=== PATIENT | female | born 1995 | race Hispanic/Latino ===

== ENCOUNTER 2018-02-21 18:47 | Emergency (ER) | payer OTHER, SELFPAY ==
--- OUTSIDE RECORDS SUMMARY | 2018-02-21 18:50 | XMS REPORT | Continuity of Care Document ---
:1995 Author Organization Interface Problems Problem Status Onset Classification Date Comments Source Date Reported BACK PAIN Active 06/11/20 [facility] 16 PRE ADMIT Active 06/28/[address] Resolved 10/31/19 Problem 06/15/2016 [facility] 14 V28.81 - SCRN Active 09/14/19 [facility] AJITH 13 Outpatient Imaging [facility] Encounter for Active Problem 04/05/2017 Brittanie supervision of [place] normal first , unspecified trimester Urinary tract Active Diagnosis 04/05/2017 Brittanie infection Schettler affecting care of mother in second trimester, antepartum 1St trimester Active Diagnosis 04/05/2017 Brittanie screening Schettler Active [facility] RELATED CONDITIONS, UNSP, UNSP Medications Medication Details Route Status Patient Ordering Order Source Instructions Provider Date Triamcinolone 1 Externally Active 0.05 % Schettler 03/30/ Brittanie Acetonide application Externally 2017 [place] to affected Twice a day area Nystatin 1 Externally Active [id number] Sche[place] 03/30/ Brittanie application UNIT/GM 2017 Schett[place] to affected Externally area Twice a day Vitafol-One 1 capsule Orally Active 29-1-200 MG Sche[place] 03/27/ Brittanie Orally Once a 2017 [place] day Vitafol-One 1 capsule Orally Active 29-1-200 MG Sche[place] 03/27/ Brittanie Orally Once a 2016 [place] day Cephalexin 1 capsule Orally Active 500 MG Orally Schett[place] 03/27/ Brittanie three times a 2016 Schettler day (tid) PNV-Total 1 cap, PO, Active Daily, 0 2015 Refill(s) Calcium 1,000 mL, Inactive Chloride Rate: 125 2015 0.0014 MEQ/ML ml/hr, / Potassium Infuse over: Chloride 0.004 8 hr, Route: MEQ/ML / IV, Total Sodium Volume: Chloride 0.103 1,000, Start MEQ/ML / date: Sodium Lactate 06/12/16 0.028 MEQ/ML 0:41:00 CDT, Injectable Duration: 30 Solution day, Stop date: 07/12/16 0:40:00 FINANCIAL SERVICES REPRESENTATIVE Vitafol-One 1 capsule Orally Active 29-1-200 MG Schett[place] Brittanie Orally Once a Schettler day Vitafol-One 1 capsule Orally Active 29-1-200 MG Schett[place] Brittanie Orally Once a Schettler day Allergies, Adverse Reactions, Alerts Substance Category Reaction Severity Reaction Status Date Comments Source type Reported N.K.D.A. Adverse Info Not Adverse Active Britatnie Reaction Available Reaction 7 Sche[place] NKDA Assertion Drug Active allergy [facility] Immunizations Immunization Date Given Site Status Last Updated Comments Source diphtheria/pertus 06/14/2016 Not Given [facility] sis, acel/tetanus adult Results Order Name Results Value Reference Date Interpretation Comments Source Range Clinical Indication: - Z36 Encounter for screening of mother. 04/24 - [facility] complete complete /2016 - Outpatient single single Comparison: None. Imaging gestation gestation [facility] US Read by: Aggie Pearce MD Dictated Date/time: 04/24/17 14:04 Electronically Signed by: Aggei Pearce MD 04/24/17 14:26 FINAL REPORT TECHNIQUE: Obstetrical ultrasound is performed with pratt scale and M-mode imaging. IMPRESSION: Please see the computer-generated obstetrical ultrasound report for this examination. This study was read and the report is in the EMR, under "Ultrasound" GENERAL OBSERVATIONS REGARDING ULTRASOUND: 1. A normal or negative sonogram report should not delay further investigation of a clinically suspicious or abnormal . 2. position or overlap of parts may prevent complete evaluation of the fetus. 3. Congenital and developmental abnormalities are not always sonographically visualized. 4. Repeat sonograms may be necessary depending on the clinical development during . SL: [id number] Vital Signs Vital Sign Value Date Comments Source Weight 136 03/27/2017 Brittanie Schettler Height 63 03/27/2017 Brittanie Schettler Diastolic (mm Hg) 68 03/27/2017 Brittanie Schettler Systolic (mm Hg) 100 03/27/2017 Brittanie Schettler Respitory Rate 18 06/12/2016 [facility] Systolic (mm Hg) 124 06/12/2016 [facility] Diastolic (mm Hg) 72 06/12/2016 [facility] Respitory Rate 18 06/12/2016 [facility] Weight 77.727 06/12/2016 [facility] BMI Calculated 30.35 06/12/2016 [facility] Height 160.02 cm 06/12/2016 [facility] Systolic (mm Hg) 122 06/12/2016 [facility] Diastolic (mm Hg) 72 06/12/2016 [facility] Encounters Location Location Encounter Encounter Reason Attending ADM DC Status Source Details Type Number For Provider Date Date Visit OD [id number] V28.81 BRITTANIE 09/25 Active [facility] - [facility] CALDERÓN /2012 [facility] AJ[facility] Imaging [facility] [id number] [place] 06/12 06/12 Vini Piresuoba /2015 [facility] Procedures Procedure Code Date Perfomer Comments Source Appendix [id number] 08/14/2013 [facility] operation
--- OUTSIDE RECORDS SUMMARY | 2018-02-21 18:50 | XMS REPORT ---
:1995 Author Organization eClinicalWorks Care Team Providers Name Role Phone Florian Daigle Provider Role Unavailable Allergies, Adverse Reactions, Alerts Substance Reaction Event Type N.K.D.A. Info Not Available Non Drug Allergy Problems No Known Problems Medications Medication Code Code Instructions Start End Status Dosage System Date Date Vitafol-One [facility] 51971675242 29-1-200 MG Active 1 capsule Orally Once a day Vitafol-One ND 60586545050 29-1-200 MG Mar 27, Active 1 capsule Orally Once a 2016 day Triamcinolone [facility] [address]-52 0.05 % Mar 30, Active 1 application Acetonide Externally 2017 to affected Twice a day area Results No Known Results Summary Purpose eClinicalWorks Submission
--- OUTSIDE RECORDS SUMMARY | 2018-02-21 18:50 | XMS REPORT ---
:1995 Author Organization eClinicalWorks Care Team Providers Name Role Phone Florian Daigle Provider Role Unavailable Allergies No Known Allergies Problems Problem Type Condition Code Onset Dates Condition Status Problem Encounter for supervision of normal Z34.00 Active first , unspecified trimester Medications Medication Code Code Instructions Start End Status Dosage System Date Date Nystatin NDC 01693-8 [id number] UNIT/GM Mar 30, May 14, Active 1 application 054-15 Externally 2016 2016 to affected Twice a day area Triamcinolone NDC 29669-4 0.05 % Mar 30, Active 1 application Acetonide 136-17 Externally 2017 to affected Twice a day area Results No Known Results Summary Purpose [employer] Submission
--- OUTSIDE RECORDS SUMMARY | 2018-02-21 18:50 | XMS REPORT ---
:1995 Author Organization eClinicalWorks Care Team Providers Name Role Phone Florian Daigle Provider Role Unavailable Allergies, Adverse Reactions, Alerts Substance Reaction Event Type N.K.D.A. Info Not Available Non Drug Allergy Problems Problem Type Condition Code Onset Dates Condition Status Assessment Urinary tract infection affecting O23.42 Active care of mother in second trimester, antepartum Assessment 1St trimester screening Z36 Active Problem Encounter for supervision of normal Z34.00 Active first , unspecified trimester Medications Medication Code System Code Instructions Start Date End Date Status Dosage Vitafol-One [facility] 85872-141 29-1-200 MG Mar 27, Active 1 capsule 0-30 Orally Once a day 2016 Vitafol-One [facility] 63299-133 29-1-200 MG Active 1 capsule 0-30 Orally Once a day Cephalexin [facility] 53793-294 500 MG Orally Mar 27, Apr 03, Active 1 capsule 7-01 three times a day 2016 2016 (tid) Vital Signs Date/Time: Mar 27, 2017 BMI 24.091 Index Weight 136 lbs Height 63 in Blood Pressure Diastolic 68 mm Hg Blood Pressure Systolic 100 mm Hg Results No Known Results Summary Purpose eClinicalWorks Submission
--- OUTSIDE RECORDS SUMMARY | 2018-02-21 18:50 | XMS REPORT ---
:1995 Author Organization eClinicalWorks Care Team Providers Name Role Phone Florian Daigle Provider Role Unavailable Allergies No Known Allergies Problems No Known Problems Medications No Known Medications Results No Known Results Summary Purpose [employer]ClinicalWorks Submission
--- OUTSIDE RECORDS SUMMARY | 2018-02-21 18:50 | XMS REPORT | Summary of Care ---
:1995 Author Organization [facility] Address [address] [place], [place] [address]- Encounter [facility] [place](FIN) [id number] Date(s): 06/11/16 - 06/12/16 [facility] [address] [place] [address]- Discharge Disposition: Home or Self Care Attending Physician: Bell Aquino MD Admitting Physician: Bell Aquino MD Vital Signs Most recent to oldest [Reference Range]: 1 2 Height 160.02 cm (06/12/16 12:41 AM) Blood Pressure [90-140/60-90 mmHg] 124/72 mmHg 122/72 mmHg (06/12/16 7:50 AM) (06/11/16 11:40 PM) Respiratory Rate [14-20 BRMIN] 18 BRMIN 18 BRMIN (06/12/16 7:50 AM) (06/12/16 5:00 AM) Weight 77.727 kg (06/12/16 12:41 AM) Body Mass Index 30.35 m2 (06/12/16 12:41 AM) Problem List Condition Effective Dates Status Health Status Informant (Confirmed) 10/30/13 - 08/06/14 Resolved (Confirmed) 02/14/12 - 11/20/12 Resolved (Confirmed) 09/18/15 Active Allergies, Adverse Reactions, Alerts Substance Reaction Severity Status NKDA Active Medications Lactated Ringers 1,000 mL 1,000 mL, Rate: 125 ml/hr, Infuse over: 8 hr, Route: IV, Total Volume: 1,000, Start date: 06/12/16 0:41:00 CDT, Duration: 30 day, Stop date: 07/12/16 0:40:00 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 Start Date: 06/12/16 Stop Date: 06/12/16 Status: DiscontinuedPNV-Total 1 cap, PO, Daily, 0 Refill(s) Start Date: 06/12/16 Status: Ordered Results No data available for this section Immunizations Not Given Vaccine Date Status Refusal Reason diphtheria/pertussis, acel/tetanus adult 06/14/16 Not Given Patient Refuses Procedures Procedure Date Related Diagnosis Body Site Appendix operation 2013 Social History Social History Type Response Smoking Status Never smoker; Type: Cigarettes; Previous treatment: None; Ready to change: No; Concerns about tobacco use in household: No; Exposure to Tobacco Smoke None; Cigarette Smoking Last 365 Days No; Reg Smoking Cessation Counseling No Assessment and Plan Extracted from: Title: OB Triage H&P L&D * Author: Bell Aquino MD Date: 06/12/16 Impression and Plan Diagnosis Back pain affecting ([id number]-IE O26.899, Working, Medical). condition: Stable. Maternal condition: Stable. 20 yo at 38w2d here for back pain 1. Back pain: Denies pain medication, will admit for overnight obs given social situation and residence being far. Plan to repeat SVE in AM 2. FHTs reassuring 3. GBS unknown, no records with patient 4. Dispo: Admit for obs
--- OUTSIDE RECORDS SUMMARY | 2018-02-21 18:50 | XMS REPORT ---
:1995 Author Organization eClinicalWorks Care Team Providers Name Role Phone Florian Daigle Provider Role Unavailable Allergies, Adverse Reactions, Alerts Substance Reaction Event Type N.K.D.A. Info Not Available Non Drug Allergy Problems No Known Problems Medications Medication Code Code Instructions Start End Status Dosage System Date Date Vitafol-One [facility] 35392413689 29-1-200 MG Mar 27, Active 1 capsule Orally Once a 2016 day Tri[address] [facility] [address]-75 0.05 % Mar 30, Active 1 application Acetonide Externally 2017 to affected Twice a day area Vitafol-One [facility] 61548770915 29-1-200 MG Active 1 capsule Orally Once a day Results No Known Results Summary Purpose eClinicalWorks Submission
--- NOTE | 2018-02-21 19:32 | EDPHYS ---
Physician Documentation [facility] Name: Yasmin Walker Age: 22 yrs Sex: Female : 1995 Arrival Date: 02/21/2018 Time: 18:51 Bed 24 Private MD: None, None ED Physician Yousuf Miller HPI: 02/22 01:03 This 22 yrs old Female presents to ER via Ambulatory with complaints of Lips snw Swelling. 01:03 The patient presents with pain, swelling, ulceration, vesicles. The problem is located snw in the lower lip. Onset: The symptoms/episode began/occurred suddenly, 2 day(s) ago, and became persistent. Duration: The symptoms are continuous, and are steadily getting worse. Associated signs and symptoms: The patient has no apparent associated signs or symptoms. Severity of symptoms: At their worst the symptoms were moderate, severe. The patient has not experienced similar symptoms in the past. The patient has not recently seen a physician. 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 - Social history:: Smoking status: Patient uses tobacco products, smokes one pack cigarettes per day. Patient/guardian denies using alcohol. - Ebola Screening: : Patient negative for fever greater than or equal to 101.5 degrees Fahrenheit, and additional compatible Ebola Virus Disease symptoms Patient denies exposure to infectious person Patient denies travel to an Ebola-affected area in the 21 days before illness onset. ROS: 02/22 01:04 Constitutional: Negative for fever, chills, and weight loss, Eyes: Negative for injury, snw pain, redness, and discharge, Neck: Negative for injury, pain, and swelling, Cardiovascular: Negative for chest pain, palpitations, and edema, Respiratory: Negative for shortness of breath, cough, wheezing, and pleuritic chest pain, Abdomen/GI: Negative for abdominal pain, nausea, vomiting, diarrhea, and constipation, Back: Negative for injury and pain, : Negative for injury, bleeding, discharge, and swelling, MS/Extremity: Negative for injury and deformity, Skin: Negative for injury, rash, and discoloration, Neuro: Negative for headache, weakness, numbness, tingling, and seizure. ENT: Positive for lower lip with swelling and pain. Exam: 01:01 Constitutional: This is a well developed, well nourished patient who is awake, alert, snw and in no acute distress. Head/Face: Normocephalic, atraumatic. Eyes: Pupils equal round and reactive to light, extra-ocular motions intact. Lids and lashes normal. Conjunctiva and sclera are non-icteric and not injected. Cornea within normal limits. Periorbital areas with no swelling, redness, or edema. Neck: Trachea midline, no thyromegaly or masses palpated, and no cervical lymphadenopathy. Supple, full range of motion without nuchal rigidity, or vertebral point tenderness. No Meningismus. Chest/axilla: Normal chest wall appearance and motion. Nontender with no deformity. No lesions are appreciated. Cardiovascular: Regular rate and rhythm with a normal S1 and S2. No gallops, murmurs, or rubs. Normal PMI, no JVD. No pulse deficits. Respiratory: Lungs have equal breath sounds bilaterally, clear to auscultation and percussion. No rales, rhonchi or wheezes noted. No increased work of breathing, no retractions or nasal flaring. Abdomen/GI: Soft, non-tender, with normal bowel sounds. No distension or tympany. No guarding or rebound. No evidence of tenderness throughout. Back: No spinal tenderness. No costovertebral tenderness. Full range of motion. Skin: Warm, dry with normal turgor. Normal color with no rashes, no lesions, and no evidence of cellulitis. MS/ Extremity: Pulses equal, no cyanosis. Neurovascular intact. Full, normal range of motion. Neuro: Awake and alert, GCS 15, oriented to person, place, time, and situation. Cranial nerves II-XII grossly intact. Motor strength 5/5 in all extremities. Sensory grossly intact. Cerebellar exam normal. Normal gait. Psych: Awake, alert, with orientation to person, place and time. Behavior, mood, and affect are within normal limits. 01:01 ENT: TM's: are normal, Nose: is normal, Mouth: Lips: cracked, edematous with vesicles to right aspect of lower lip, Posterior pharynx: is normal, Dental exam: normal, Voice: is normal. Vital Signs: 02/21 18:55 BP 107 / 73; Pulse 103; Resp 18; Temp 97.7(O); Pulse Ox 96% on R/A; Weight 56.7 kg; hj Height 5 ft. 3 in. (160.02 cm); Pain 10/10; 19:59 BP 119 / 82; Pulse 77; Resp 18; Pulse Ox 100% ; tl3 18:55 Body Mass Index 22.14 (56.70 kg, 160.02 cm) hj MDM: 19:11 Patient medically screened. snw 02/22 01:02 Data reviewed: vital signs, nurses notes. Data interpreted: Pulse oximetry: on room air snw is 100 %. Interpretation: normal. Counseling: I had a detailed discussion with the patient and/or guardian regarding: the historical points, exam findings, and any diagnostic results supporting the discharge/admit diagnosis, the presence of at least one elevated blood pressure reading (>120/80) during this emergency department visit, the need for outpatient follow up, to return to the emergency department if symptoms worsen or persist or if there are any questions or concerns that arise at home. Special discussion: Based on the history and exam findings, there is no indication for further emergent testing or inpatient evaluation. I discussed with the patient/guardian the need to see the primary care provider for further evaluation of the symptoms. Administered Medications: 02/21 19:40 Drug: Decadron - Dexamethasone 10 mg {Note: orally administered.} Route: IVP; Site: [facility] Other; 19:58 Follow up: Response: No adverse reaction 3 19:59 Follow up: Response: Medication administered at discharge. 3 19:41 Drug: Acyclovir 800 mg Route: PO; 3 19:58 Follow up: Response: No adverse reaction; Medication administered at discharge. 3 19:41 Drug: Lortab Liquid 10 ml Route: PO; 3 19:58 Follow up: Response: No adverse reaction tl3 19:58 Follow up: Response: Medication administered at discharge. 3 Disposition: 02/21/18 19:31 Discharged to Home. 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 - Condition is Stable. - Discharge Instructions: Herpes Labialis, Cryotherapy. - Prescriptions for Valtrex 1 g Oral Tablet - take 2 tablet by ORAL route every 12 hours for 1 day; 4 tablet. Diclofenac Sodium 75 mg Oral Tablet Sustained Release - take 1 tablet by ORAL route 2 times per day; 30 tablet. - Medication Reconciliation Form, Thank You Letter, Antibiotic Education, Prescription Opioid Use form. - Follow up: Private Physician; When: 2 - 3 days; Reason: Recheck today's complaints, Continuance of care, Re-evaluation by your physician. Follow up: Emergency Department; When: As needed; Reason: Worsening of condition. Addendum: 02/23/2018 20:52 Co-signature as Attending Physician, Yousuf Miller MD. r n Signatures: Katie Tovar, CONDITIONING COACH-C CONDITIONING COACH-Csnw Yousuf Miller MD MD rn Joaquin, Henry RN Malu Day RN RN tl3 Corrections: (The following items were deleted from the chart) 02/21 20:01 19:31 02/21/2018 19:31 Discharged to Home. Impression: Herpesviral [herpes simplex] tl3 infections. Condition is Stable. Forms are Medication Reconciliation Form, Thank You Letter, Antibiotic Education, Prescription Opioid Use. Follow up: Private Physician; When: 2 - 3 days; Reason: Recheck today's complaints, Continuance of care, Re-evaluation by your physician. Follow up: Emergency Department; When: As needed; Reason: Worsening of condition. snw
--- NOTE | 2018-02-21 19:32 | ER ---
Nurse's Notes [facility] Name: Yasmin Walker Age: 22 yrs Sex: Female : 1995 Arrival Date: 02/21/2018 Time: 18:51 Bed 24 Private MD: None, None Diagnosis: Herpesviral [herpes simplex] infections Presentation: 02/21 18:52 Presenting complaint: Patient states: i woke up yesterday with swollen lip and blisters hj on my lower lip and it aches on my bone; denies fever and chills;. Transition of care: patient was not received from another setting of care. Onset of symptoms was February 21, 2018. Risk Assessment: Do you want to hurt yourself or someone else? Patient reports no desire to harm self or others. Initial Sepsis Screen: Does the patient meet any 2 criteria? No. Patient's initial sepsis screen is negative. Does the patient have a suspected source of infection? No. Patient's initial sepsis screen is negative. Care prior to arrival: None. 18:52 Method Of Arrival: Ambulatory 18:52 Acuity: RICO 4 hj Triage Assessment: 18:54 General: Appears in no apparent distress. uncomfortable, Behavior is calm, cooperative, hj appropriate for age. Pain: Complains of pain in lower lip. 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 - Social history:: Smoking status: Patient uses tobacco products, smokes one pack cigarettes per day. Patient/guardian denies using alcohol. - Ebola Screening: : Patient negative for fever greater than or equal to 101.5 degrees Fahrenheit, and additional compatible Ebola Virus Disease symptoms Patient denies exposure to infectious person Patient denies travel to an Ebola-affected area in the 21 days before illness onset. Screenin:54 Abuse screen: Denies threats or abuse. Denies injuries from another. Nutritional hj screening: No deficits noted. Tuberculosis screening: No symptoms or risk factors identified. Fall Risk None identified. Assessment: 19:41 General: Appears uncomfortable, slender, well groomed, well developed, well nourished, tl3 Behavior is calm, cooperative, appropriate for age. Pain: Complains of pain in lower lip. Neuro: No deficits noted. Level of Consciousness is awake, alert, obeys commands, Oriented to person, place, time, situation, Appropriate for age. Cardiovascular: Patient's skin is warm and dry. Respiratory: Airway is patent Respiratory effort is even, unlabored, labored, Respiratory pattern is regular, symmetrical. GI: No deficits noted. No signs and/or symptoms were reported involving the gastrointestinal system. : No signs and/or symptoms were reported regarding the genitourinary system. EENT: Lesions noted. bottom lip. Derm: No signs and/or symptoms reported regarding the dermatologic system. Musculoskeletal: No signs and/or symptoms reported regarding the musculoskeletal system. Vital Signs: 18:55 BP 107 / 73; Pulse 103; Resp 18; Temp 97.7(O); Pulse Ox 96% on R/A; Weight 56.7 kg; hj Height 5 ft. 3 in. (160.02 cm); Pain 10/10; 19:59 BP 119 / 82; Pulse 77; Resp 18; Pulse Ox 100% ; tl3 18:55 Body Mass Index 22.14 (56.70 kg, 160.02 cm) ED Course: 18:51 Patient arrived in ED. mr 18:51 None, None is Private Physician. mr 18:53 Triage completed. hj 18:54 Arm band placed on right wrist. hj 18:54 Patient has correct armband on for positive identification. Bed in low position. Call light in reach. Side rails up X 1. Adult w/ patient. 19:09 Katie Tovar FNP-C [facility]. snw 19:09 Yousuf Miller MD is Attending Physician. snw 19:30 Malu Shaw, TYRESE is Primary Nurse. tl3 19:41 No provider procedures requiring assistance completed. Patient did not have IV access tl3 during this emergency room visit. Administered Medications: 19:40 Drug: Decadron - Dexamethasone 10 mg {Note: orally administered.} Route: IVP; Site: tl3 Other; 19:58 Follow up: Response: No adverse reaction tl3 19:59 Follow up: Response: Medication administered at discharge. tl3 19:41 Drug: Acyclovir 800 mg Route: PO; tl3 19:58 Follow up: Response: No adverse reaction; Medication administered at discharge. tl3 19:41 Drug: Lortab Liquid 10 ml Route: PO; tl3 19:58 Follow up: Response: No adverse reaction tl3 19:58 Follow up: Response: Medication administered at discharge. tl3 Outcome: 19:31 Discharge ordered by MD. durán 19:59 Discharged to home ambulatory. tl3 19:59 Condition: good 19:59 Discharge instructions given to patient, Instructed on discharge instructions, follow up and referral plans. medication usage, Demonstrated understanding of instructions, follow-up care, medications, Prescriptions given X 2. 20:01 Patient left the ED. tl3 Signatures: Katie Tovar, SPRING INSPECTOR-C SPRING INSPECTOR-Neyda Jane Henry, RN RN Malu Rosenberg RN RN tl3
[2018-02-21] MEDS ORDERED: ACYCLOVIR 400 MG TABLET ONE (19:37)
[2018-02-21] MEDS ORDERED: DEXAMETHASONE 10 MG/ML VIAL ONE (19:37)
[2018-02-21] MEDS ORDERED: HYDROCOD 2.5mg-ACETAMIN 108mg/5mL Soln ONE (19:38)
[2018-02-21 20:10] VITALS: TEMP 97.7
[2018-02-21 20:11] VITALS: BP 119/82; O2SAT 100
== END 2018-02-21 20:01 | disposition home or self-care (01) ==
LOC: ER 18:47
DX: B00.1 Herpesviral vesicular dermatitis (principal); F17.210 Nicotine dependence, cigarettes, uncomplicated
CPT/HCPCS: 96374; 99283; J1100

== ENCOUNTER 2018-03-21 14:09 | Emergency (ER) | payer SELFPAY ==
--- OUTSIDE RECORDS SUMMARY | 2018-03-21 14:11 | XMS REPORT | Continuity of Care Document ---
:1995 Author Organization Interface Problems Problem Status Onset Classification Date Comments Source Date Reported BACK PAIN Active 06/11/20 [facility] 16 PRE ADMIT Active 06/28/[address] Resolved 10/31/19 Problem 06/15/2016 [facility] 14 V28.81 - SCRN Active 09/14/19 [facility] AJITH 13 Outpatient Imaging [facility] Encounter for Active Problem 04/05/2017 Brittanie supervision of [place] normal first , unspecified trimester Urinary tract Active Diagnosis 04/05/2017 Brittanie infection Sche[place] affecting care of mother in second trimester, antepartum 1St trimester Active Diagnosis 04/05/2017 Brittanie screening [place] Active [facility] RELATED CONDITIONS, UNSP, UNSP Medications Medication Details Route Status Patient Ordering Order Source Instructions Provider Date Triamcinolone 1 Externally Active 0.05 % [place] 03/30/ Brittanie Acetonide application Externally 2017 [place] to affected Twice a day area Nystatin 1 Externally Active [id number] [place] 03/30/ Brittanie application UNIT/GM 2017 [place] [...] 30 Solution day, Stop date: 07/12/16 0:40:00 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 Adverse Info Not Adverse Active Brittanie Reaction Available Reaction 7 [place] NKDA Assertion Drug Active allergy [facility] Immunizations Immunization Date Given Site Status Last Updated Comments Source diphtheria/pertus 06/14/2016 Not Given [facility] sis, acel/tetanus adult Results Order Name Results Value Reference Date Interpretation Comments Source Range Clinical Indication: - Z36 Encounter for screening of mother. 04/24 - [facility] complete complete /2016 - Outpatient single single Comparison: None. Imaging gestation gestation [facility] [place] Read by: Aggie Pearce MD Dictated Date/time: 04/24/17 14:04 Electronically Signed by: Aggie Pearce MD 04/24/17 14:26 FINAL REPORT TECHNIQUE: [...] on the clinical development during . SL: [id number] Vital Signs Vital Sign Value Date Comments Source Weight 136 03/27/2017 Brittanie [place]ler Height 63 03/27/2017 Brittanie [place] Diastolic (mm Hg) 68 03/27/2017 Brittanie Sche[place] Systolic (mm Hg) 100 03/27/2017 Brittanie Schettler Respitory Rate 18 06/12/2016 [facility] Systolic (mm Hg) 124 06/12/2016 [facility] Diastolic (mm Hg) 72 06/12/2016 [facility] Respitory Rate 18 06/12/2016 [facility] Weight 77.727 06/12/2016 [facility] BMI Calculated 30.35 06/12/2016 [facility] Height 160.02 cm 06/12/2016 [facility] Systolic (mm Hg) 122 06/12/2016 [facility] Diastolic (mm Hg) 72 06/12/2016 [facility] Encounters Location Location Encounter Encounter Reason Attending ADM DC Status Source Details Type Number For Provider Date Date Visit OD [id number] V28.81 BRITTANIE 09/25 Active [facility] - [place] CALDERÓN /2012 [facility] Imaging [facility] with [facility] Observation [id number] [place] 06/12 06/12 Vini Piresuoba /2015 [facility] Procedures Procedure Code Date Perfomer Comments Source Appendix [id number] 08/14/2013 [facility] operation
--- OUTSIDE RECORDS SUMMARY | 2018-03-21 14:11 | XMS REPORT ---
:1995 Author Organization eClinicalWorks Care Team Providers Name Role Phone Florian Daigle Provider Role Unavailable Allergies No Known Allergies Problems Problem Type Condition Code Onset Dates Condition Status Problem Encounter for supervision of normal Z34.00 Active first , unspecified trimester Medications Medication Code Code Instructions Start End Status Dosage System Date Date Nystatin NDC 97680-9 046203 UNIT/GM Mar 30, May 14, Active 1 application 054-15 Externally 2016 2016 to affected Twice a day area Triamcinolone NDC 52849-3 0.05 % Mar 30, Active 1 application Acetonide 136-17 Externally 2017 to affected Twice a day area Results No Known Results Summary Purpose [facility] Submission
--- OUTSIDE RECORDS SUMMARY | 2018-03-21 14:12 | XMS REPORT ---
:1995 Author Organization eClinicalWorks Care Team Providers Name Role Phone Florian Daigle Provider Role Unavailable Allergies, Adverse Reactions, Alerts Substance Reaction Event Type N.K.D.A. Info Not Available Non Drug Allergy Problems No Known Problems Medications Medication Code Code Instructions Start End Status Dosage System Date Date Vitafol-One [facility] 80997476513 29-1-200 MG Active 1 capsule Orally Once a day Vitafol-One ND 82284312961 29-1-200 MG Mar 27, Active 1 capsule Orally Once a 2016 day Triamcinolone [facility] [address]-73 0.05 % Mar 30, Active 1 application Acetonide Externally 2017 to affected Twice a day area Results No Known Results Summary Purpose eClinicalWorks Submission
--- OUTSIDE RECORDS SUMMARY | 2018-03-21 14:12 | XMS REPORT ---
[...] Date End Date Status Dosage Vitafol-One [facility] 97173-797 29-1-200 MG Mar 27, Active 1 capsule 0-30 Orally Once a day 2016 Vitafol-One [facility] 31275-201 29-1-200 MG Active 1 capsule 0-30 Orally Once a day Cephalexin [facility] 46172-061 500 MG Orally Mar 27, Apr 03, Active 1 capsule 7-01 three times a day 2016 2016 (tid) Vital Signs Date/Time: Mar 27, 2017 BMI 24.091 Index Weight 136 lbs Height 63 in Blood Pressure Diastolic 68 mm Hg Blood Pressure Systolic 100 mm Hg Results No Known Results Summary Purpose eClinicalWorks Submission
--- OUTSIDE RECORDS SUMMARY | 2018-03-21 14:12 | XMS REPORT ---
:1995 Author Organization eClinicalWorks Care Team Providers Name Role Phone Florian Daigle Provider Role Unavailable Allergies, Adverse Reactions, Alerts Substance Reaction Event Type N.K.D.A. Info Not Available Non Drug Allergy Problems No Known Problems Medications Medication Code Code Instructions Start End Status Dosage System Date Date Vitafol-One [facility] 82880643464 29-1-200 MG Mar 27, Active 1 capsule Orally Once a 2016 day Triamcinolone [facility] [address]-07 0.05 % Mar 30, Active 1 application Acetonide Externally 2017 to affected Twice a day area Vitafol-One [facility] 07608996579 29-1-200 MG Active 1 capsule Orally Once a day Results No Known Results Summary Purpose eClinicalWorks Submission
[2018-03-21 14:44] LABS: Urine Blood 1+ (NEG); Urine Glucose NEGATIVE (NEG); Urine Protein 2+ (NEG); Urine pH 6.5 (5.0-7.0)
[2018-03-21 15:07] LABS: Urine Bacteria 20-50 /HPF (<20); Urine Culture Reflex Order REFLEXED
--- NOTE | 2018-03-21 15:15 | ER ---
Nurse's Notes [facility] Name: Yasmin Walker Age: 22 yrs Sex: Female : 1995 Arrival Date: 03/21/2018 Time: 14:12 Bed 26 Private MD: None, None Diagnosis: Acute cystitis with hematuria Presentation: 03/21 14:16 Presenting complaint: Patient states: i have this bladder infection about 6 days ago hj and took uri max over the counter meds and its not helping; denies fever and chills; reports L flank pain; reports burning with urination;. Transition of care: patient was not received from another setting of care. Onset of symptoms was March 21, 2018. Risk Assessment: Do you want to hurt yourself or someone else? Patient reports no desire to harm self or others. Initial Sepsis Screen: Does the patient meet any 2 criteria? No. Patient's initial sepsis screen is negative. Does the patient have a suspected source of infection? No. Patient's initial sepsis screen is negative. Care prior to arrival: None. 14:16 Method Of Arrival: Ambulatory 14:16 Acuity: RICO 3 Triage Assessment: 14:20 General: Appears in no apparent distress. uncomfortable, Behavior is calm, cooperative, hj appropriate for age. Pain: Complains of pain in left low back. Musculoskeletal: Circulation, motion, and sensation intact. Capillary refill Range of motion: intact in all extremities. 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 - Social history:: Smoking status: Patient uses tobacco products, denies chronic smoking, but will smoke occasionally, smokes one pack cigarettes per day. Patient/guardian denies using alcohol. - Ebola Screening: : Patient negative for fever greater than or equal to 101.5 degrees Fahrenheit, and additional compatible Ebola Virus Disease symptoms Patient denies exposure to infectious person Patient denies travel to an Ebola-affected area in the 21 days before illness onset. Screenin:20 Abuse screen: Denies threats or abuse. Denies injuries from another. Nutritional hj screening: No deficits noted. Tuberculosis screening: No symptoms or risk factors identified. Fall Risk None identified. Assessment: 14:37 General: Appears in no apparent distress. comfortable, Behavior is calm, cooperative, aj appropriate for age. Neuro: Level of Consciousness is awake, alert, obeys commands, Oriented to person, place, time, situation, Appropriate for age. Respiratory: Airway is patent Respiratory effort is even, unlabored, Respiratory pattern is regular, symmetrical. : Reports burning with urination. Derm: Skin is intact, is healthy with good turgor, Skin is pink, warm \T\ dry. normal. 15:22 Reassessment: Patient appears in no apparent distress at this time. Patient and/or tl3 family updated on plan of care and expected duration. Pain level reassessed. Patient is alert, oriented x 3, equal unlabored respirations, skin warm/dry/pink. Vital Signs: 14:20 BP 110 / 69; Pulse 84; Resp 18; Temp 98.8(TE); Pulse Ox 97% on R/A; Weight 58.97 kg; hj Height 5 ft. 3 in. (160.02 cm); Pain 8/10; 15:22 BP 105 / 67; Pulse 80; Resp 18; Pulse Ox 99% ; tl3 14:20 Body Mass Index 23.03 (58.97 kg, 160.02 cm) hj ED Course: 14:12 Patient arrived in ED. mr 14:12 None, None is Private Physician. mr 14:19 Triage completed. hj 14:20 Arm band placed on right wrist. hj 14:22 [facility] jr8 14:22 Yousuf Miller MD is Attending Physician. jr8 14:22 Patient has correct armband on for positive identification. Placed in gown. Bed in low hj position. Call light in reach. Side rails up X 1. Adult w/ patient. 14:23 Monique Stroud, TYRESE is Primary Nurse. aj 14:37 Urine collected: clean catch specimen, cloudy, Amount Voided: 200mL. aj 15:22 No provider procedures requiring assistance completed. Patient did not have IV access tl3 during this emergency room visit. Administered Medications: No medications were administered Outcome: 15:15 Discharge ordered by . jr8 15:22 Discharged to home ambulatory. tl3 15:22 Condition: good 15:22 Discharge instructions given to patient, Instructed on discharge instructions, follow up and referral plans. medication usage, Demonstrated understanding of instructions, follow-up care, medications, Prescriptions given X 2. 15:24 Patient left the ED. tl3 Addendum: 03/24/2018 08:30 Addendum: Culture Results: Positive urine culture. No further action required. Bacteria h b sensitive to prescribed antibiotic. Signatures: Monique Stroud, RN RN Neyda Serrano Josh, PA PA jr8 Leo Holland RN RN Zoila Angelo RN RN Malu Shaw RN RN tl3
--- NOTE | 2018-03-21 15:16 | EDPHYS ---
Physician Documentation [facility] Name: Yasmin Walker Age: 22 yrs Sex: Female : 1995 Arrival Date: 03/21/2018 Time: 14:12 Bed 26 Private MD: None, None ED Physician Yousuf Miller HPI: 03/21 15:26 This 22 yrs old Female presents to ER via Ambulatory with complaints of Back jr8 Pain, Urinary Problem. 15:26 The patient presents with urinary symptoms, dysuria, urgency. Onset: The jr8 symptoms/episode began/occurred gradually, 1 week(s) ago. Modifying factors: The symptoms are alleviated by nothing, the symptoms are aggravated by urinating. Associated signs and symptoms: Pertinent positives: nausea. Severity of symptoms: At their worst the symptoms were mild, in the emergency department the symptoms are unchanged. The patient has not experienced similar symptoms in the past. The patient has not recently seen a physician. 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 - Social history:: Smoking status: Patient uses tobacco products, denies chronic smoking, but will smoke occasionally, smokes one pack cigarettes per day. Patient/guardian denies using alcohol. - Ebola Screening: : Patient negative for fever greater than or equal to 101.5 degrees Fahrenheit, and additional compatible Ebola Virus Disease symptoms Patient denies exposure to infectious person Patient denies travel to an Ebola-affected area in the 21 days before illness onset. ROS: 15:26 Eyes: Negative for injury, pain, redness, and discharge, ENT: Negative for injury, jr8 pain, and discharge, Neck: Negative for injury, pain, and swelling, Cardiovascular: Negative for chest pain, palpitations, and edema, Respiratory: Negative for shortness of breath, cough, wheezing, and pleuritic chest pain, Abdomen/GI: Negative for abdominal pain, nausea, vomiting, diarrhea, and constipation, MS/Extremity: Negative for injury and deformity, Skin: Negative for injury, rash, and discoloration, Neuro: Negative for headache, weakness, numbness, tingling, and seizure. 15:26 Back: Positive for pain at rest, Negative for decreased range of motion, pain with movement, radiated pain. 15:26 : Positive for urinary symptoms, Negative for small amounts, hematuria, pelvic pain, flank pain, bladder incontinence, foul smelling urine, vaginal bleeding, vaginal discharge, vaginal itching, menstrual abnormality. Exam: 15:26 Eyes: Pupils equal round and reactive to light, extra-ocular motions intact. Lids and jr8 lashes normal. Conjunctiva and sclera are non-icteric and not injected. Cornea within normal limits. Periorbital areas with no swelling, redness, or edema. ENT: Nares patent. No nasal discharge, no septal abnormalities noted. Tympanic membranes are normal and external auditory canals are clear. Oropharynx with no redness, swelling, or masses, exudates, or evidence of obstruction, uvula midline. Mucous membranes moist. Neck: Trachea midline, no thyromegaly or masses palpated, and no cervical lymphadenopathy. Supple, full range of motion without nuchal rigidity, or vertebral point tenderness. No Meningismus. Cardiovascular: Regular rate and rhythm with a normal S1 and S2. No gallops, murmurs, or rubs. Normal PMI, no JVD. No pulse deficits. Respiratory: Lungs have equal breath sounds bilaterally, clear to auscultation and percussion. No rales, rhonchi or wheezes noted. No increased work of breathing, no retractions or nasal flaring. Abdomen/GI: Soft, non-tender, with normal bowel sounds. No distension or tympany. No guarding or rebound. No evidence of tenderness throughout. Back: No spinal tenderness. No costovertebral tenderness. Full range of motion. Skin: Warm, dry with normal turgor. Normal color with no rashes, no lesions, and no evidence of cellulitis. MS/ Extremity: Pulses equal, no cyanosis. Neurovascular intact. Full, normal range of motion. Neuro: Awake and alert, GCS 15, oriented to person, place, time, and situation. Cranial nerves II-XII grossly intact. Motor strength 5/5 in all extremities. Sensory grossly intact. Cerebellar exam normal. Normal gait. Vital Signs: 14:20 BP 110 / 69; Pulse 84; Resp 18; Temp 98.8(TE); Pulse Ox 97% on R/A; Weight 58.97 kg; hj Height 5 ft. 3 in. (160.02 cm); Pain 8/10; 15:22 BP 105 / 67; Pulse 80; Resp 18; Pulse Ox 99% ; tl3 14:20 Body Mass Index 23.03 (58.97 kg, 160.02 cm) hj MDM: 14:39 Patient medically screened. jr8 15:14 Data reviewed: vital signs, nurses notes, lab test result(s), urinalysis, bacteruria, jr8 and as a result, I will discharge patient. Data interpreted: Pulse oximetry: on room air is 97 %. Interpretation: normal. Counseling: I had a detailed discussion with the patient and/or guardian regarding: the historical points, exam findings, and any diagnostic results supporting the discharge/admit diagnosis, lab results, the need for outpatient follow up, a family practitioner, to return to the emergency department if symptoms worsen or persist or if there are any questions or concerns that arise at home. 03/21 14:23 Order name: Urine Microscopic Only; Complete Time: 15:14 [facility] 03/21 14:36 Order name: Urine Dipstick--Ancillary (enter results); Complete Time: 14:52 03/21 14:23 Order name: Urine Test (obtain specimen); Complete Time: 14:36 [facility] 03/21 14:23 Order name: Urine Dipstick-Ancillary (obtain specimen); Complete Time: 14:36 [facility] 03/21 14:37 Order name: Urine --Ancillary (enter results); Complete Time: 14:52 03/21 15:08 Order name: Urine Culture EDMS Administered Medications: No medications were administered Disposition: 16:35 Co-signature as Attending Physician, Yousuf Miller MD. rn Disposition: 03/21/18 15:15 Discharged to Home. Impression: Acute cystitis with hematuria. - Condition is Stable. - Discharge Instructions: Urinary Tract Infection, Adult. - Prescriptions for Zofran 4 mg Oral Tablet - take 1 tablet by ORAL route every 12 hours As needed; 20 tablet. Macrobid 100 mg Oral Capsule - take 1 capsule by ORAL route every 12 hours for 7 days; 14 capsule. - Medication Reconciliation Form, Thank You Letter, Antibiotic Education, Prescription Opioid Use form. - Follow up: Private Physician; When: 2 - 3 days; Reason: Recheck today's complaints, Continuance of care, Re-evaluation by your physician. - Problem is new. - Symptoms have improved. 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 Impression: Acute cystitis with hematuria. tl3 Condition is Stable. Forms are Medication Reconciliation Form, Thank You Letter, Antibiotic Education, Prescription Opioid Use. Follow up: Private Physician; When: 2 - 3 days; Reason: Recheck today's complaints, Continuance of care, Re-evaluation by your physician. Problem is new. Symptoms have improved. jr8
[2018-03-21 15:44] VITALS: TEMP 98.8
[2018-03-21 15:45] VITALS: BP 105/67; O2SAT 99
== END 2018-03-21 15:24 | disposition home or self-care (01) ==
LOC: ER 14:09
DX: N30.01 Acute cystitis with hematuria (principal); F17.210 Nicotine dependence, cigarettes, uncomplicated
CPT/HCPCS: 81003; 81015; 81025; 87077; 87086; 87088; 87186; 99283

== ENCOUNTER 2018-05-23 18:08 | Emergency (ER) | payer SELFPAY ==
--- OUTSIDE RECORDS SUMMARY | 2018-05-23 18:11 | XMS REPORT ---
:1995 Author Organization eClinicalWorks Care Team Providers Name Role Phone Florian Daigle Provider Role Unavailable Allergies No Known Allergies Problems Problem Type Condition Code Onset Dates Condition Status Problem Encounter for supervision of normal Z34.00 Active first , unspecified trimester Medications Medication Code Code Instructions Start End Status Dosage System Date Date Nystatin NDC 38667-3 225441 UNIT/GM Mar 30, May 14, Active 1 application 054-15 Externally 2016 2016 to affected Twice a day area Triamcinolone NDC 25969-7 0.05 % Mar 30, Active 1 application Acetonide 136-17 Externally 2017 to affected Twice a day area Results No Known Results Summary Purpose eClinical[employer]amboo[employer] Submission
--- OUTSIDE RECORDS SUMMARY | 2018-05-23 18:11 | XMS REPORT ---
[...] Start Date End Date Status Dosage Vitafol-One [facility] 42374-964 29-1-200 MG Mar 27, Active 1 capsule 0-30 Orally Once a day 2016 Vitafol-One [facility] 52931-389 29-1-200 MG Active 1 capsule 0-30 Orally Once a day Cephalexin [facility] 19320-782 500 MG Orally Mar 27, Apr 03, Active 1 capsule 7-01 three times a day 2016 2016 (tid) Vital Signs Date/Time: Mar 27, 2017 BMI 24.091 Index Weight 136 lbs Height 63 in Blood Pressure Diastolic 68 mm Hg Blood Pressure Systolic 100 mm Hg Results No Known Results Summary Purpose eClinicalWorks Submission
--- OUTSIDE RECORDS SUMMARY | 2018-05-23 18:11 | XMS REPORT ---
:1995 Author Organization eClinicalWorks Care Team Providers Name Role Phone Florian Daigle Provider Role Unavailable Allergies, Adverse Reactions, Alerts Substance Reaction Event Type N.K.D.A. Info Not Available Non Drug Allergy Problems No Known Problems Medications Medication Code Code Instructions Start End Status Dosage System Date Date Vitafol-One [facility] 99451555369 29-1-200 MG Mar 27, Active 1 capsule Orally Once a [address] [facility] [address]-93 0.05 % Mar 30, Active 1 application Acetonide Externally 2017 to affected Twice a day area Vitafol-One [facility] 87218188800 29-1-200 MG Active 1 capsule Orally Once a day Results No Known Results Summary Purpose eClinicalWorks Submission
--- OUTSIDE RECORDS SUMMARY | 2018-05-23 18:11 | XMS REPORT ---
:1995 Author Organization eClinicalWorks Care Team Providers Name Role Phone Florian Daigle Provider Role Unavailable Allergies, Adverse Reactions, Alerts Substance Reaction Event Type N.K.D.A. Info Not Available Non Drug Allergy Problems No Known Problems Medications Medication Code Code Instructions Start End Status Dosage System Date Date Vitafol-One [facility] 78956611326 29-1-200 MG Active 1 capsule Orally Once a day Vitafol-One ND 27324351539 29-1-200 MG Mar 27, Active 1 capsule Orally Once a 2016 day Triamcinolone [facility] [address]-07 0.05 % Mar 30, Active 1 application Acetonide Externally 2017 to affected Twice a day area Results No Known Results Summary Purpose eClinicalWorks Submission
--- OUTSIDE RECORDS SUMMARY | 2018-05-23 18:11 | XMS REPORT | Continuity of Care Document ---
:1995 Author Organization Interface Problems Problem Status Onset Classification Date Comments Source Date Reported BACK PAIN Active 06/11/20 [facility] 16 PRE ADMIT Active 06/28/[address] Resolved 10/31/19 Problem 06/15/2016 [facility] 14 V28.81 - SCRN Active 09/14/19 [facility] AJITH 13 Outpatient Imaging [facility] Encounter for Active Problem 04/05/2017 Brittanie supervision of [place] normal first , unspecified trimester Urinary tract Active Diagnosis 04/05/2017 Brittanie infection [place] affecting care of mother in second trimester, antepartum 1St trimester Active Diagnosis 04/05/2017 Brittanie screening [place] Active [facility] RELATED CONDITIONS, UNSP, UNSP Medications Medication Details Route Status Patient Ordering Order Source Instructions Provider Date Nystatin 1 Externally Active [id number] [place] 03/30/ Brittanie application UNIT/GM 2016 [place] to affected Externally area Twice a day Triamcinolone 1 Externally Active 0.05 % [facility] 03/30/ Brittanie Acetonide application Externally 2017 [place] to affected Twice a day area Vitafol-One 1 capsule Orally Active 29-1-200 MG [...] 30 Solution day, Stop date: 07/12/16 0:40:00 [employer] Vitafol-One 1 capsule Orally Active 29-1-200 MG [place] Brittanie Orally Once a Schettler day Vitafol-One 1 capsule Orally Active 29-1-200 MG [place] Brittanie Orally Once a [place]tt[place] day Allergies, Adverse Reactions, Alerts Substance Category Reaction Severity Reaction Status Date Comments Source type Reported N.K.D.A. Adverse Info Not Adverse Active Brittanie Reaction Available Reaction 7 [place] Immunizations Immunization Date Given Site Status Last Updated Comments Source diphtheria/pertus 06/14/2016 Not Given [facility] sis, acel/tetanus adult Results Order Name Results Value Reference Date Interpretation Comments Source Range Clinical Indication: - Z36 Encounter for screening of mother. 04/24 - [facility] complete complete /2016 - Outpatient single single Comparison: None. Imaging gestation gestation [facility] US Read by: Aggie Pearce MD Dictated [...] depending on the clinical development during . : [id number] Vital Signs Vital Sign Value Date Comments Source Weight 136 03/27/2017 Brittanie [place] Height 63 03/27/2017 Brittanie [place] Diastolic (mm Hg) 68 03/27/2017 Brittanie [place] Systolic (mm Hg) 100 03/27/2017 Brittanie [place] Respitory Rate 18 06/12/2016 [facility] Systolic (mm Hg) 124 06/12/2016 [facility] Diastolic (mm Hg) 72 06/12/2016 [facility] Respitory Rate 18 06/12/2016 [facility] Weight 77.727 06/12/2016 [facility] BMI Calculated 30.35 06/12/2016 [facility] Height 160.02 cm 06/12/2016 [facility] Systolic (mm Hg) 122 06/12/2016 [facility] Diastolic (mm Hg) 72 06/12/2016 [facility] Encounters Location Location Encounter Encounter Reason Attending ADM DC Status Source Details Type Number For Provider Date Date Visit OD [id number] V28.81 BRITTANIE 09/25 Active [facility] [place] [facility] /2012 Outpatie nt AJITH Imaging [facility] Observation [id number] Esohe 06/12 06/12 Vini Aquino /2015 [facility] Procedures Procedure Code Date Perfomer Comments Source Appendix [id number] 08/14/2013 [facility] operation
[2018-05-23 19:10] LABS: Absolute Lymphocytes (CBC) 1.9 K/uL (0.7-4.9); Absolute Monocytes 0.4 K/uL (0.1-1.3); Absolute Neutrophil 4.3 K/uL (1.8-8.0); Basophils % 0.6 % (0-1.3); Eosinophils % 1.6 % (0-4.4); Hematocrit 39.1 % (36.0-45.0); Lymphocytes % 28.2 % (15.3-44.8); MCH 31.2 pg (27.0-35.0); MCV 89.9 fL (80-100); MPV 7.8 fL (7.6-11.3); Monocytes % 6.3 % (3.3-12.3); RBC Red Blood Cell Count 4.35 M/uL (3.86-4.86)
[2018-05-23 19:18] LABS: BUN Blood Urea Nitrogen 10 mg/dL (7-18); Bicarbonate 24 mmol/L (21-32); Glucose Level 91 mg/dL (74-106); Potassium 3.8 mmol/L (3.5-5.1); Sodium Level 141 mmol/L (136-145)
[2018-05-23 19:23] LABS: Urine Blood 2+ (NEG); Urine Glucose NEGATIVE (NEG); Urine Protein NEGATIVE (NEG); Urine Specific Gravity 1.025 (1.005-1.030); Urine pH 6.5 (5.0-7.0)
--- NOTE | 2018-05-23 19:47 | RAD REPORT ---
EXAM DESCRIPTION: US - Transvaginal OB - 05/23/2018 7:39 pm CLINICAL HISTORY: ABD CRAMPING, COMPARISON: OBSTETRICAL LIMITED dated 03/04/2014OBSTETRICAL LIMITED dated 03/04/2014 FINDINGS: The uterus measures 8.4 x 6.2 x 4.3 cm. The endometrial stripe is thickened, without IUP s een. Mild heterogenous fluid suspected in the lower uterine segment/cervix. The maternal adnexa and ovaries are within normal limits. Normal Doppler blood flow was demonstrated to both ovaries. No significant pelvic ascites. IMPRESSION: Thickened endometrial stripe is seen without evidence of IUP. In the setting of an eleva kimi HCG level, this would constitute of unknown location. Advise serial HCG measurements an d follow-up pelvic sonography in 7-10 days.
--- NOTE | 2018-05-23 21:06 | ER ---
Nurse's Notes [facility] Name: Yasmin Walker Age: 22 yrs Sex: Female : 1995 Arrival Date: 05/23/2018 Time: 18:12 Bed 18 Private MD: Diagnosis: Complete or unspecified spontaneous without complication Presentation: 05/23 18:34 Presenting complaint: Patient states: Positive test 5 weeks ago, today she aj1 woke up with bright red vaginal bleeding. Reports abdominal cramping. Transition of care: patient was not received from another setting of care. Onset of symptoms was May 23, 2018. Risk Assessment: Do you want to hurt yourself or someone else? Patient reports no desire to harm self or others. Initial Sepsis Screen: Does the patient meet any 2 criteria? No. Patient's initial sepsis screen is negative. Does the patient have a suspected source of infection? No. Patient's initial sepsis screen is negative. Care prior to arrival: None. 18:34 Method Of Arrival: Ambulatory aj1 18:34 Acuity: RICO 3 aj1 Triage Assessment: 18:36 General: Appears in no apparent distress. comfortable, Behavior is calm, cooperative, aj1 appropriate for age. Pain: Denies pain. Neuro: Level of Consciousness is awake, alert, obeys commands. Cardiovascular: Patient's skin is warm and dry. Respiratory: Airway is patent Respiratory effort is even, unlabored, Respiratory pattern is regular, symmetrical. : Reports vaginal bleeding that is bright red, with clots. 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 - Social history:: Smoking status: Patient/guardian denies using tobacco. - Ebola Screening: : Patient denies travel to an Ebola-affected area in the 21 days before illness onset. Screenin:39 Abuse screen: Denies threats or abuse. Denies injuries from another. Nutritional sv screening: No deficits noted. Tuberculosis screening: No symptoms or risk factors identified. Fall Risk None identified. Assessment: 18:45 General: Appears in no apparent distress. uncomfortable, well developed, Behavior is sv calm, cooperative, appropriate for age. Pain: Denies pain. Neuro: Level of Consciousness is awake, alert, obeys commands, Oriented to person, place, time, situation, Moves all extremities. Full function. Respiratory: Respiratory effort is even, unlabored, Respiratory pattern is regular, symmetrical. : Reports vaginal bleeding that is bright red, with clots, moderate flow, since yesterday, pt stated that it started off as light pink yesterday and today it has gotten redder. Derm: Skin is pink, warm \T\ dry. 19:13 Reassessment: Patient appears in no apparent distress at this time. No changes from jd3 previously documented assessment. Patient and/or family updated on plan of care and expected duration. Pain level reassessed. Patient is alert, oriented x 3, equal unlabored respirations, skin warm/dry/pink. 19:13 Obstetrical Assessment: General assessment: awake and alert. jd3 20:20 Reassessment: Patient appears in no apparent distress at this time. No changes from jd3 previously documented assessment. Patient and/or family updated on plan of care and expected duration. Pain level reassessed. Patient is alert, oriented x 3, equal unlabored respirations, skin warm/dry/pink. 20:21 Reassessment: Patient appears in no apparent distress at this time. No changes from jd3 previously documented assessment. Patient and/or family updated on plan of care and expected duration. Pain level reassessed. Patient is alert, oriented x 3, equal unlabored respirations, skin warm/dry/pink. 20:59 Reassessment: Patient appears in no apparent distress at this time. No changes from jd3 previously documented assessment. Patient and/or family updated on plan of care and expected duration. Pain level reassessed. Patient is alert, oriented x 3, equal unlabored respirations, skin warm/dry/pink. 21:15 Reassessment: Patient appears in no apparent distress at this time. Patient and/or jd3 family updated on plan of care and expected duration. Pain level reassessed. Patient is alert, oriented x 3, equal unlabored respirations, skin warm/dry/pink. reported understanding of discharge instructions, even and steady gait upon discharge. Vital Signs: 18:36 BP 109 / 65; Pulse 90; Resp 16; Temp 98.6; Pulse Ox 100% on R/A; Weight 58.97 kg (R); aj1 Height 5 ft. 3 in. (160.02 cm); Pain 0/10; 20:20 BP 97 / 64; Pulse 61; Resp 16 S; Pulse Ox 100% on R/A; jd3 20:59 BP 99 / 66; Pulse 63; Resp 16 S; Pulse Ox 100% on R/A; jd3 18:36 Body Mass Index 23.03 (58.97 kg, 160.02 cm) aj1 Vitals: 21:14 Heart Tones none ordered. jd3 ED Course: 18:12 Patient arrived in ED. as 18:35 Katie Tovar FNP-C [facility]. snw 18:35 Rory Finch MD is Attending Physician. snw 18:36 Triage completed. aj1 18:36 Arm band placed on Patient placed in an exam room. aj1 18:39 Marika Evans RN is Primary Nurse. sv 18:39 Patient has correct armband on for positive identification. Bed in low position. Door sv closed. Head of bed elevated. 18:50 Initial lab(s) drawn, by ak, sent to lab. Inserted saline lock: 22 gauge in right sv antecubital area, using aseptic technique. ,using aseptic technique. diffusics Blood collected. Flushed right antecubital with 5 ml normal saline. 18:58 Report given to Jose Luis Jay. sv 19:39 US Transvaginal Ob In Process Unspecified. EDMS 21:13 No provider procedures requiring assistance completed. IV discontinued, intact, jd3 bleeding controlled, No redness/swelling at site. Pressure dressing applied. Administered Medications: No medications were administered Point of Care Testing: Urine : 20:20 hCG Reading: Positive; jd3 Outcome: 21:06 Discharge ordered by . snw 21:13 Discharged to home ambulatory. jd3 21:13 Condition: stable 21:13 Discharge instructions given to patient, Instructed on discharge instructions, follow up and referral plans. medication usage, Demonstrated understanding of instructions, follow-up care, medications, Prescriptions given X 1. 21:16 Patient left the ED. jd3 Signatures: Dispatcher [employer] EDNM Ciera Pearce RN RN aj1 Marika Evans, RN RN sv Katie Tovar, CUSTOMER OPERATIONS SPECIALIST-C CUSTOMER OPERATIONS SPECIALIST-Csnw Yamini Monroe Jonathon, RN RN jd3
--- NOTE | 2018-05-23 21:06 | EDPHYS ---
Physician Documentation [facility] Name: Yasmin Walker Age: 22 yrs Sex: Female : 1995 Arrival Date: 05/23/2018 Time: 18:12 Bed 18 Private MD: ED Physician Rory Finch HPI: 05/23 20:16 This 22 yrs old Female presents to ER via Ambulatory with complaints of snw Vaginal Bleeding, + Preg <12wks. 20:16 The patient presents with miscarriage. Onset: The symptoms/episode began/occurred snw suddenly, today. Modifying factors: The symptoms are alleviated by nothing. Associated signs and symptoms: Pertinent positives: vaginal bleeding, passed fetus, brought to ED with pt. Sent to pathology. Severity of symptoms: At their worst the symptoms were moderate. The patient has experienced a previous episode, last year. The patient has not recently seen a physician. Pt states bleeding resolving. No complaints at this time. 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 - Social history:: Smoking status: Patient/guardian denies using tobacco. - Ebola Screening: : Patient denies travel to an Ebola-affected area in the 21 days before illness onset. ROS: 20:15 Constitutional: Negative for fever, chills, and weight loss, Eyes: Negative for injury, snw pain, redness, and discharge, ENT: Negative for injury, pain, and discharge, Neck: Negative for injury, pain, and swelling, Cardiovascular: Negative for chest pain, palpitations, and edema, Respiratory: Negative for shortness of breath, cough, wheezing, and pleuritic chest pain, Abdomen/GI: Negative for abdominal pain, nausea, vomiting, diarrhea, and constipation, Back: Negative for injury and pain, MS/Extremity: Negative for injury and deformity, Skin: Negative for injury, rash, and discoloration, Neuro: Negative for headache, weakness, numbness, tingling, and seizure, Psych: Negative for depression, anxiety, suicide ideation, homicidal ideation, and hallucinations. 20:15 : Positive for vaginal bleeding, "miscarriage". Exam: 20:15 Constitutional: This is a well developed, well nourished patient who is awake, alert, snw and in no acute distress. Head/Face: Normocephalic, atraumatic. Eyes: Pupils equal round and reactive to light, extra-ocular motions intact. Lids and lashes normal. Conjunctiva and sclera are non-icteric and not injected. Cornea within normal limits. Periorbital areas with no swelling, redness, or edema. ENT: Nares patent. No nasal discharge, no septal abnormalities noted. Tympanic membranes are normal and external auditory canals are clear. Oropharynx with no redness, swelling, or masses, exudates, or evidence of obstruction, uvula midline. Mucous membranes moist. Neck: Trachea midline, no thyromegaly or masses palpated, and no cervical lymphadenopathy. Supple, full range of motion without nuchal rigidity, or vertebral point tenderness. No Meningismus. Chest/axilla: Normal chest wall appearance and motion. Nontender with no deformity. No lesions are appreciated. Cardiovascular: Regular rate and rhythm with a normal S1 and S2. No gallops, murmurs, or rubs. Normal PMI, no JVD. No pulse deficits. Respiratory: Lungs have equal breath sounds bilaterally, clear to auscultation and percussion. No rales, rhonchi or wheezes noted. No increased work of breathing, no retractions or nasal flaring. Abdomen/GI: Soft, non-tender, with normal bowel sounds. No distension or tympany. No guarding or rebound. No evidence of tenderness throughout. Back: No spinal tenderness. No costovertebral tenderness. Full range of motion. Skin: Warm, dry with normal turgor. Normal color with no rashes, no lesions, and no evidence of cellulitis. MS/ Extremity: Pulses equal, no cyanosis. Neurovascular intact. Full, normal range of motion. Neuro: Awake and alert, GCS 15, oriented to person, place, time, and situation. Cranial nerves II-XII grossly intact. Motor strength 5/5 in all extremities. Sensory grossly intact. Cerebellar exam normal. Normal gait. Psych: Awake, alert, with orientation to person, place and time. Behavior, mood, and affect are within normal limits. Vital Signs: 18:36 BP 109 / 65; Pulse 90; Resp 16; Temp 98.6; Pulse Ox 100% on R/A; Weight 58.97 kg (R); aj1 Height 5 ft. 3 in. (160.02 cm); Pain 0/10; 20:20 BP 97 / 64; Pulse 61; Resp 16 S; Pulse Ox 100% on R/A; jd3 20:59 BP 99 / 66; Pulse 63; Resp 16 S; Pulse Ox 100% on R/A; jd3 18:36 Body Mass Index 23.03 (58.97 kg, 160.02 cm) aj1 MDM: 18:53 Patient medically screened. snw 22:16 Data reviewed: vital signs, nurses notes. Data interpreted: Pulse oximetry: on room air snw is 100 %. Interpretation: normal. Counseling: I had a detailed discussion with the patient and/or guardian regarding: the historical points, exam findings, and any diagnostic results supporting the discharge/admit diagnosis, lab results, radiology results, the need for outpatient follow up, to return to the emergency department if symptoms worsen or persist or if there are any questions or concerns that arise at home. Special discussion: Based on the history and exam findings, there is no indication for further emergent testing or inpatient evaluation. I discussed with the patient/guardian the need to see the OB Gyne specialist for further evaluation of the symptoms. I discussed with the patient/guardian the need to see the primary care provider for further evaluation of the symptoms. 05/23 18:50 Order name: Abo/rh Typing; Complete Time: 19:51 sv 05/23 18:50 Order name: Basic Metabolic Panel; Complete Time: 19:20 sv 05/23 18:50 Order name: CBC with Diff; Complete Time: 19:12 sv 05/23 19:12 Order name: US Transvaginal Ob; Complete Time: 19:52 snw 05/23 19:14 Order name: Urine Dipstick--Ancillary (enter results); Complete Time: 19:27 mt 05/23 19:14 Order name: Urine --Ancillary (enter results); Complete Time: 19:27 mt 05/23 18:50 Order name: IV Saline Lock; Complete Time: 19:01 sv 05/23 18:50 Order name: Labs collected and sent; Complete Time: 19:01 sv 05/23 18:50 Order name: NPO; Complete Time: 19:01 sv 05/23 18:50 Order name: Urine Dipstick-Ancillary (obtain specimen); Complete Time: 19:54 sv Administered Medications: No medications were administered Point of Care Testing: Urine : 20:20 hCG Reading: Positive; jd3 Disposition: 05/23/18 21:06 Discharged to Home. Impression: Complete or unspecified spontaneous without complication. - Condition is Stable. - Discharge Instructions: Miscarriage. - Prescriptions for Vitamin 27- 0.8 mg Oral Tablet - take 1 tablet by ORAL route once daily; 60 tablet. - Medication Reconciliation Form, Thank You Letter, Antibiotic Education, Prescription Opioid Use form. - Follow up: Private Physician; When: 2 - 3 days; Reason: Recheck today's complaints, Continuance of care, Re-evaluation by your physician. Follow up: Emergency Department; When: As needed; Reason: Worsening of condition. Addendum: 05/27/2018 00:52 Co-signature as Attending Physician, Rory Finch MD. g s Signatures: Dispatcher [employer] EDMS Ciera Pearce RN RN aj1 Marika Evans RN RN sv Katie Tovar, VOCATIONAL TECHNICAL EDUCATION TEACHER-C VOCATIONAL TECHNICAL EDUCATION TEACHER-Csnw Rory Finch MD MD gs Davies, Jonathon RN RN jd3 Corrections: (The following items were deleted from the chart) 05/23 21:16 21:06 05/23/2018 21:06 Discharged to Home. Impression: Complete or unspecified jd3 spontaneous without complication. Condition is Stable. Forms are Medication Reconciliation Form, Thank You Letter, Antibiotic Education, Prescription Opioid Use. Follow up: Private Physician; When: 2 - 3 days; Reason: Recheck today's complaints, Continuance of care, Re-evaluation by your physician. Follow up: Emergency Department; When: As needed; Reason: Worsening of condition. snw
[2018-05-23 21:20] VITALS: TEMP 98.6; O2SAT 100
[2018-05-23 21:22] VITALS: BP 99/66
== END 2018-05-23 21:16 | disposition home or self-care (01) ==
LOC: ER 18:08
DX: O03.9 Complete or unspecified spontaneous abortion without complication (principal)
CPT/HCPCS: 36415; 76817; 80048; 81003; 81025; 85025; 86900; 86901; 88305; 99284

== ENCOUNTER 2018-11-20 13:02 | Emergency (ER) | payer SELFPAY ==
--- OUTSIDE RECORDS SUMMARY | 2018-11-20 13:09 | XMS REPORT | Continuity of Care Document ---
:1995 Author Organization Interface Problems Problem Status Onset Classification Date Comments Source Date Reported Spontaneous Active 07/17/20 Finding 07/17/[address] [facility] onset of labor 17 [facility] [place] Active 07/17/20 Finding 07/17/[address] [facility] [place] 39 weeks Active 07/17/20 Finding 07/17/[address] [facility] gestation of 17 [facility] [place] GBS , +RV Resolved 07/17/20 Finding 07/17/[address] [facility] culture, 17 [facility] currently [place] Spontaneous Active 07/17/20 Finding 07/17/[address] [facility] vaginal delivery 17 [facility] [place] Group B Active 07/17/20 Finding 07/17/[address] [facility] Streptococcus 17 [facility] - carrier, +RV [place] culture, currently BACK PAIN Active 06/11/20 [facility] 16 PRE ADMIT Active 06/28/[address] Resolved 10/31/19 Problem 06/15/2016 [facility] 14 V28.81 - SCRN Active 09/14/19 [facility] AJITH 13 Outpatient Imaging [facility] Encounter for Active Problem 04/05/2017 Brittanie supervision of [place] normal first , unspecified trimester Urinary tract Active Diagnosis 04/05/2017 Brittanie infection [place] affecting care of mother in second trimester, antepartum 1St trimester Active Diagnosis 04/05/2017 Brittanie screening [place] Urinary tract Resolved Finding 07/17/[address] [facility] infectious [facility] [place] Second trimester Resolved Finding 07/17/[address] [facility] [place] Abdominal pain Resolved Finding 07/17/[address] [facility] [place] Vomiting Resolved Finding 07/17/[address] [facility] [place] Dehydration Resolved Finding 07/17/[address] [facility] [place] Hypokalemia Resolved Finding 07/17/[address] [facility] [place] Active [facility] RELATED CONDITIONS, UNSP, UNSP Medications Medication Details Route Status Patient Ordering Order Source Instructions Provider Date Ibuprofen EVERY EIGHT Active [place] 07/17/ St[facility] HOURS 2017 [facility] - NEEDED PRN [place] For Xzze-Zk-Inow ache DAILY Active St. Vit/Iron 2017 [facility] - Fumarate/Fa [place] Triamcinolone 1 Externally Active 0.05 % [place] 03/30/ Brittanie Acetonide application Externally 2017 [place] to affected Twice a day area Nystatin 1 Externally Active [id number] [place] 03/30/ Brittanie application UNIT/GM 2016 [place] to affected Externally area Twice a day Vitafol-One 1 capsule Orally Active 29-1-200 MG [place] 03/27/ Brittanie Orally Once a 2016 [place] day Vitafol-One 1 capsule Orally Active 29-1-200 MG [place] 03/27/ Brittanie Orally Once a 2016 [place] day Cephalexin 1 capsule Orally Active 500 MG Orally [place] 03/27/ Brittanie three times a 2016 (tid) PNV-Total 1 cap, PO, Active MH Daily, 0 2015 [facility] Refill(s) Calcium 1,000 mL, Inactive Chloride Rate: 125 2015 [place] 0.0014 MEQ/ML ml/hr, / Potassium Infuse over: Chloride 0.004 8 hr, Route: MEQ/ML / IV, Total Sodium Volume: Chloride 0.103 1,000, Start MEQ/ML / date: Sodium Lactate 06/12/16 0.028 MEQ/ML 0:41:00 CDT, Injectable Duration: 30 Solution day, Stop date: 07/12/16 0:40:00 [employer] Amoxicillin/Po Q12H Active [facility] tassium Clav 2013 [facility] [place] Hydrocodone/Ac Q4H PRN For Active [facility] etaminophen Pain 2013 [facility] [place] Vitafol-One 1 capsule Orally Active 29-1-200 MG [place] Brittanie Orally Once a [place] day Vitafol-One 1 capsule Orally Active 29-1-200 MG [place] Brittanie Orally Once a [place] day Allergies, Adverse Reactions, Alerts Substance Category Reaction Severity Reaction Status Date Comments Source type Reported N.K.D.A. Adverse Info Not Adverse Active 10/19/201 Brittanie Reaction Available Reaction 7 [place] Immunizations Immunization Date Given Site Status Last Comments Source Updated diphtheria/pertus 06/14/2016 Not Given [facility] sis, acel/tetanus adult Tdap Vaccine 11/21/2012 completed [facility] [place] Results Order Name Results Value Reference Date Interpretation Comments Source Range Laboratory White Blood 8.4 K/uL 4.3 - 10.9 07/17 [facility] Studies Count /2016 [facility] [place] Laboratory Red Cell 13.4 % 12.1 - 07/17 [facility] Studies Distribution 15.2 [facility] - Width [place] Laboratory Red Blood 3.49 M/uL 3.86 - 07/17 [facility] Studies Count 4.86 [facility] [place] Laboratory Platelet 213 K/uL 152 - 406 07/17 [facility] Studies Count /2016 [facility] [place] Laboratory Mean 7.9 fL 7.6 - 11.3 07/17 [facility] Studies Platelet /2016 [facility] Volume [place] Laboratory Mean 89.5 fL 80 - 100 07/17 [facility] Studies Corpuscular /2016 [facility] Volume [place] Laboratory Mean 34.1 g/dL 32.0 - 07/17 [facility] Studies Corpuscular 36.0 /2016 [facility] Hemoglobin [place] Concent Laboratory Mean 30.5 pg 27.0 - 07/17 [facility] Studies Corpuscular 35.0 /2016 [facility] Hemoglobin [place] Laboratory Hemoglobin 10.6 g/dL 12.0 - 07/17 [facility] Studies 15.0 /2016 [facility] [place] Laboratory Hematocrit 31.2 % 36.0 - 07/17 [facility] Studies 45.0 /2016 [facility] [place] Laboratory Urine Urine 07/16 [facility] Studies Phencyclidin Phencyclid /2016 [facility] - e Screen ine Screen [place] Laboratory Urine Urine 07/16 [facility] Studies Barbiturates Barbiturat /2016 [facility] - Screen es Screen [place] Laboratory Ur Ur 07/16 [facility] Studies Tetrahydroca Tetrahydro [facility] - nnabinol cannabinol [place] (THC) Scrn (THC) Scrn Laboratory Oxycodone Oxycodone 07/[address] [facility] Studies Screen Screen /2016 [facility] [place] Laboratory Opiates Opiates 07/16 [facility] Studies Screen Screen /2016 [facility] [place] Laboratory MDMA MDMA 07/16 [facility] Studies (Ecstasy) (Ecstasy) /2016 [facility] - Screen Screen [place] Laboratory Cocaine Cocaine 07/16 [facility] Studies Screen Screen /2016 [facility] [place] Laboratory Benzodiazepi Benzodiaze 07/16 [facility] Studies uzma Screen pines /2016 [facility] - Screen [place] Laboratory Amphetamines Amphetamin 07/16 [facility] Studies Screen es Screen /2016 [facility] [place] Laboratory Rapid Plasma Rapid 07/16 [facility] Studies Reagin Plasma /2016 [facility] Reagin [place] Laboratory HIV (1&2) HIV (1&2) 07/16 [facility] Studies Antibody Antibody /2016 [facility] - Rapid Rapid [place] Laboratory Urine pH 6.5 07/16 [facility] Studies /2016 [facility] [place] Laboratory Urine WBC Urine WBC 07/16 [facility] Studies /2016 [facility] [place] Laboratory Urine 1.0 mg/dL 07/16 [facility] Studies Urobilinogen /2016 [facility] [place] Laboratory Urine Total Urine 07/16 [facility] Studies Protein Total /2016 [facility] Protein [place] Laboratory Urine Urine 07/16 [facility] Studies Squamous Squamous /2016 [facility] - Epithelial Epithelial [place] Cells Cells Laboratory Urine 1.020 07/16 [facility] Studies Specific /2016 [facility] [place] Laboratory Urine RBC null 07/16 [facility] Studies /2016 [facility] [place] Laboratory Urine Urine 07/16 [facility] Studies Nitrite Nitrite /2016 [facility] [place] Laboratory Urine Urine 07/16 [facility] Studies Leukocyte Leukocyte /2016 [facility] - Esterase Esterase [place] Laboratory Urine Urine 07/16 [facility] Studies Ketones Ketones /2016 [facility] [place] Laboratory Urine Urine 07/16 [facility] Studies Glucose Glucose /2016 [facility] [place] Laboratory Urine Urine 07/16 [facility] Studies Culture Culture /2016 [facility] - Reflexed Reflexed [place] Laboratory Urine Color Urine 07/16 [facility] Studies Color /2016 [facility] [place] Laboratory Urine Blood Urine 07/16 [facility] Studies Blood /2016 [facility] [place] Laboratory Urine Urine 07/[address] [facility] Studies Bilirubin Bilirubin /2016 [facility] [place] Laboratory Urine null 07/16 [facility]. Studies Bacteria /2016 [facility] [place] Laboratory Urine Urine 07/16 [facility]. Studies Appearance Appearance /2016 [facility] [place] Laboratory Urine Urine 07/16 [facility]. Studies Amorphous Amorphous [facility] - Sediment Sediment [place] Laboratory Neutrophils 72.6 % 41.7 - 07/[address] [facility] [address] Studies % 73.7 /2016 [facility] [place] Laboratory Monocytes % 4.6 % 3.3 - 12.3 07/[address] [facility] [address] Studies /2016 [facility] [place] Laboratory Lymphocytes 21.8 % 15.3 - 07/16 [facility]. Studies % 44.8 /2016 [facility] [place] Laboratory Eosinophils 0.6 % 0 - 4.4 07/16 [facility] [address] Studies % /2016 [facility] [place] Laboratory Basophils % 0.4 % 0 - 1.3 07/16 [facility]. Studies [facility] [place] Laboratory Absolute 6.1 K/uL 1.8 - 8.0 07/16 [facility]. Studies Neutrophil /2016 [facility] [place] Laboratory Absolute 0.4 K/uL 0.1 - 1.3 07/16 [facility]. Studies Monocytes [facility] - (CBC) [place] Laboratory Absolute 1.8 K/uL 0.7 - 4.9 07/16 [facility]. Studies Lymphocytes [facility] - (CBC) [place] Laboratory Absolute 0.1 K/uL 0 - 0.5 07/16 [facility]. Studies Eosinophils [facility] - (CBC) [place] Laboratory Absolute 0.0 K/uL 0 - 0.5 07/16 [facility]. Studies Basophils [facility] - (CBC) [place] Laboratory Rapid Plasma Rapid 07/16 [facility] Studies Reagin Titer Plasma /2016 [facility] [place]agin [place] Titer Clinical Indication: - Z36 Encounter for screening of mother. 04/24 - [facility] complete complete /2016 - Outpatient single single Comparison: None. Imaging gestation gestation US [facility] US Read by: Aggie Pearce MD [...] on the clinical development during . SL: [id number] Vital Signs Vital Sign Value Date Comments Source Temperature Oral (F) 97.8 F 07/17/[address] [facility] [place] Heart Rate 68 07/17/[address] [facility] [place] Respitory Rate 18 07/17/[address] [facility] [place] Systolic (mm Hg) 105 07/17/[address] [facility] [place] Diastolic (mm Hg) 60 07/17/[address] [facility] [place] Height 63 07/16/[address] [facility] [place] Weight 140.00 07/16/[address] [facility] [place] Weight 136 03/27/2017 [facility] [place] [facility] 63 [facility]27[facility] Di[facility] (mm Hg) 68 03/27/2017 [facility] [place] Systolic (mm Hg) 100 03/27/2017 Brittanie [place] Respitory Rate 18 06/12/2016 [facility] Systolic (mm Hg) 124 06/12/2016 [facility] Diastolic (mm Hg) 72 06/12/2016 [facility] Respitory Rate 18 06/12/2016 [facility] Weight 77.727 06/12/2016 [facility] BMI Calculated 30.35 06/12/2016 [facility] Height 160.02 cm 06/12/2016 [facility] Systolic (mm Hg) 122 06/12/2016 [facility] Diastolic (mm Hg) 72 06/12/2016 [facility] Encounters Location Location Encounter Encounter Reason Attending ADM DC Status Source Details Type Number For Provider Date Date Visit OD [id number] V28.81 BRITTANIE 09/25 Active [facility] 0 - SCRN [place]HE[place] /2012 Outpatie nt AJ[facility] Imaging [facility] [id number] [place] 06/12 06/12 V[place] 3 [place] /2015 [facility] . Registered [id number] 07/[address] [facility] Referred Selena Garcia rt [facility] St. Discharged [id number] 07/16 07/[address] [facility] Inpatient Selena Garcia rt Procedures Procedure Code Date Perfomer Comments Source [place] Count [id number] 07/16/[address] [facility] [address] Selena Nichole [id number] 07/16/[address] [facility] [address] Selena Nichole Appendix [id number] 08/14/2013 [facility]
--- OUTSIDE RECORDS SUMMARY | 2018-11-20 13:09 | XMS REPORT ---
:1995 Author Organization [employer] Care Team Providers Name Role Phone Florian Daigle Provider Role Unavailable Allergies No Known Allergies Problems Problem Type Condition Code Onset Dates Condition Status Problem Encounter for supervision of normal Z34.00 Active first , unspecified trimester Medications Medication Code Code Instructions Start End Status Dosage System Date Date Nystatin NDC 69354-2 602770 UNIT/GM Mar 30, May 14, Active 1 application 054-15 Externally 2016 2016 to affected Twice a day area Triamcinolone NDC 39705-2 0.05 % Mar 30, Active 1 application Acetonide 136-17 Externally 2017 to affected Twice a day area Results No Known Results Summary Purpose [employer] Submission
--- OUTSIDE RECORDS SUMMARY | 2018-11-20 13:09 | XMS REPORT ---
[...] Start Date End Date Status Dosage Vitafol-One [facility][NOTE 3] 89771-203 29-1-200 MG Mar 27, Active 1 capsule 0-30 Orally Once a day 2016 Vitafol-One [facility][NOTE 3] 28401-394 29-1-200 MG Active 1 capsule 0-30 Orally Once a day Cephalexin [facility][NOTE 3] 19398-916 500 MG Orally Mar 27, Apr 03, Active 1 capsule 7-01 three times a day 2016 2016 (tid) Vital Signs Date/Time: Mar 27, 2017 BMI 24.091 Index Weight 136 lbs Height 63 in Blood Pressure Diastolic 68 mm Hg Blood Pressure Systolic 100 mm Hg Results No Known Results Summary Purpose [employer] Submission
--- OUTSIDE RECORDS SUMMARY | 2018-11-20 13:10 | XMS REPORT ---
:1995 Author Organization [employer] Care Team Providers Name Role Phone Florian Daigle Provider Role Unavailable Allergies, Adverse Reactions, Alerts Substance Reaction Event Type N.K.D.A. Info Not Available Non Drug Allergy Problems No Known Problems Medications Medication Code Code Instructions Start End Status Dosage System Date Date Vitafol-One [facility] 51217700064 29-1-200 MG Mar 27, Active 1 capsule Orally Once a 2016 day Triamcinolone [facility] [address]-50 0.05 % Mar 30, Active 1 application Acetonide Externally 2017 to affected Twice a day area Vitafol-One [facility] 38474093346 29-1-200 MG Active 1 capsule Orally Once a day Results No Known Results Summary Purpose [employer] Submission
--- OUTSIDE RECORDS SUMMARY | 2018-11-20 13:10 | XMS REPORT ---
:1995 Author Organization [employer] Care Team Providers Name Role Phone Florian aDigle Provider Role Unavailable Allergies No Known Allergies Problems No Known Problems Medications No Known Medications Results No Known Results Summary Purpose [employer] Submission
--- OUTSIDE RECORDS SUMMARY | 2018-11-20 13:10 | XMS REPORT ---
:1995 Author Organization [employer] Care Team Providers Name Role Phone Florian Daigle Provider Role Unavailable Allergies, Adverse Reactions, Alerts Substance Reaction Event Type N.K.D.A. Info Not Available Non Drug Allergy Problems No Known Problems Medications Medication Code Code Instructions Start End Status Dosage System Date Date Vitafol-One [facility] 79372806671 29-1-200 MG Active 1 capsule Orally Once a day Vitafol-One ND 03839566022 29-1-200 MG Mar 27, Active 1 capsule Orally Once a 2016 day Triamcinolone [facility] [address]-60 0.05 % Mar 30, Active 1 application Acetonide Externally 2017 to affected Twice a day area Results No Known Results Summary Purpose [employer] Submission
[2018-11-20 14:08] LABS: Urine Blood NEGATIVE (NEG); Urine Glucose NEGATIVE (NEG); Urine Protein NEGATIVE (NEG); Urine Specific Gravity 1.025 (1.005-1.030)
--- NOTE | 2018-11-20 14:27 | ER ---
Nurse's Notes [facility] Name: Yasmin Walker Age: 23 yrs Sex: Female : 1995 Arrival Date: 11/20/2018 Time: 13:25 Bed 11 Private MD: Diagnosis: Vomiting;First trimester of Presentation: 11/20 13:26 Presenting complaint: Patient states: nausea/vomiting/diarrhea that began 1 day ago. Pt aa5 states "I think I have food poisoning because it happened after I ate some pork chops". Transition of care: patient was not received from another setting of care. Onset of symptoms was November 2018. Risk Assessment: Do you want to hurt yourself or someone else? Patient reports no desire to harm self or others. Initial Sepsis Screen: Does the patient meet any 2 criteria? No. Patient's initial sepsis screen is negative. Does the patient have a suspected source of infection? No. Patient's initial sepsis screen is negative. Care prior to arrival: None. 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 - Social history:: Smoking status: Patient uses tobacco products, 2 cigarettes a day . - Ebola Screening: : No symptoms or risks identified at this time. - Family history:: not pertinent. - Hospitalizations: : No recent hospitalization is reported. Screenin:30 Abuse screen: Denies threats or abuse. Denies injuries from another. Nutritional ss screening: No deficits noted. Tuberculosis screening: Never had TB. Fall Risk None identified. Assessment: 13:45 General: Appears in no apparent distress. comfortable, Behavior is calm, cooperative. ss Pain: Denies pain. Neuro: Level of Consciousness is awake, alert, obeys commands, Oriented to person, place, time, situation. Cardiovascular: Capillary refill < 3 seconds is brisk in bilateral. Respiratory: Airway is patent Respiratory effort is even, unlabored, Respiratory pattern is regular, symmetrical. GI: Abdomen is non-distended, Reports diarrhea, nausea, vomiting, since began 1 day ago. EENT: Oral mucosa is moist. Derm: Skin is intact, is healthy with good turgor. Musculoskeletal: Circulation, motion, and sensation intact. Range of motion: intact in all extremities, Swelling absent. 14:32 Reassessment: Patient appears in no apparent distress at this time. Patient and/or ss family updated on plan of care and expected duration. Pain level reassessed. Patient is alert, oriented x 3, equal unlabored respirations, skin warm/dry/pink. Vital Signs: 13:28 BP 102 / 52; Pulse 85; Resp 16 S; Temp 98.3(TE); Pulse Ox 100% on R/A; Weight 61.23 kg aa5 (R); Height 5 ft. 3 in. (160.02 cm) (R); Pain 7/10; 13:28 Body Mass Index 23.91 (61.23 kg, 160.02 cm) aa5 ED Course: 13:25 Patient arrived in ED. as 13:26 Arm band placed on. aa5 13:27 Triage completed. aa5 13:30 Patient has correct armband on for positive identification. Bed in low position. Call ss light in reach. 13:36 Yousuf Miller MD is Attending Physician. rn 13:45 Urine collected: clean catch specimen, clear. ss 14:32 Araesli Waldron RN is Primary Nurse. ss 14:33 No provider procedures requiring assistance completed. Patient did not have IV access ss during this emergency room visit. Administered Medications: 13:53 Not Given (): Zofran 4 mg PO once rn Outcome: 14:26 Discharge ordered by . rn 14:30 Discharged to home ambulatory. ss 14:30 Condition: good 14:30 Discharge instructions given to patient, family, Instructed on discharge instructions, follow up and referral plans. medication usage, Demonstrated understanding of instructions, follow-up care. 14:34 Patient left the ED. ss Signatures: Yamini Monroe as Yousuf Miller MD MD rn Calderon, Audri, RN RN aa Araseli Waldron RN RN ss
--- NOTE | 2018-11-20 14:27 | EDPHYS ---
Physician Documentation [facility] Name: Yasmin Walker Age: 23 yrs Sex: Female : 1995 Arrival Date: 11/20/2018 Time: 13:25 Bed 11 Private MD: ED Physician Yousuf Miller HPI: 11/20 13:58 This 23 yrs old Female presents to ER via Ambulatory with complaints of rn Vomiting/Diarrhea. 13:58 The patient presents to the emergency department with nausea, vomiting, diarrhea. rn 13:58 Onset: The symptoms/episode began/occurred 1 day(s) ago. Possible causes: unknown. rn Associated signs and symptoms: Pertinent positives: nausea, vomiting, Pertinent negatives: vaginal discharge. Severity of symptoms: At their worst the symptoms were mild in the emergency department the symptoms are unchanged. The patient has not experienced similar symptoms in the past. The patient has not recently seen a physician. Reports 2 days of nausea/vomiting/diarrhea, no fever, no vaginal bleeding or discharge. Thinks it is food poisoning from pork chops. . 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 - Social history:: Smoking status: Patient uses tobacco products, 2 cigarettes a day . - Ebola Screening: : No symptoms or risks identified at this time. - Family history:: not pertinent. - Hospitalizations: : No recent hospitalization is reported. ROS: 13:58 Constitutional: Negative for fever, chills, and weight loss, Eyes: Negative for injury, rn pain, redness, and discharge, Cardiovascular: Negative for chest pain, palpitations, and edema, Respiratory: Negative for shortness of breath, cough, wheezing, and pleuritic chest pain, Abdomen/GI: Negative for abdominal pain, constipation, MS/Extremity: Negative for injury and deformity, Skin: Negative for injury, rash, and discoloration, Neuro: Negative for headache, weakness, numbness, tingling, and seizure. Exam: 13:58 Constitutional: This is a well developed, well nourished patient who is awake, alert, rn and in no acute distress. Head/Face: Normocephalic, atraumatic. ENT: MMM Neck: Trachea midline, no thyromegaly or masses palpated, and no cervical lymphadenopathy. Supple, full range of motion without nuchal rigidity, or vertebral point tenderness. No Meningismus. Abdomen/GI: soft, non-tender Skin: Warm, dry with normal turgor. Normal color with no rashes, no lesions, and no evidence of cellulitis. MS/ Extremity: Pulses equal, no cyanosis. Neurovascular intact. Full, normal range of motion. Equal circumference. Neuro: Awake and alert, GCS 15, oriented to person, place, time, and situation. Cranial nerves II-XII grossly intact. Motor strength 5/5 in all extremities. Sensory grossly intact. Cerebellar exam normal. Normal gait. Vital Signs: 13:28 BP 102 / 52; Pulse 85; Resp 16 S; Temp 98.3(TE); Pulse Ox 100% on R/A; Weight 61.23 kg aa5 (R); Height 5 ft. 3 in. (160.02 cm) (R); Pain 7/10; 13:28 Body Mass Index 23.91 (61.23 kg, 160.02 cm) aa5 MDM: 13:36 Patient medically screened. rn 14:25 Differential diagnosis: viral gastroenteritis, gastroenteritis, . Data rn reviewed: vital signs, nurses notes, lab test result(s), urinalysis, UPT: and as a result, I will discharge patient. Counseling: I had a detailed discussion with the patient and/or guardian regarding: the historical points, exam findings, and any diagnostic results supporting the discharge/admit diagnosis, lab results, the need for outpatient follow up, to return to the emergency department if symptoms worsen or persist or if there are any questions or concerns that arise at home. Special discussion: I discussed with the patient/guardian in detail that at this point there is no indication for admission to the hospital. It is understood, however, that if the symptoms persist or worsen the patient needs to return immediately for re-evaluation. Based on the history and exam findings, there is no indication for further emergent testing or inpatient evaluation. I discussed with the patient/guardian the need to see the OB Gyne specialist for further evaluation of the symptoms. 14:25 ED course: Recommend OB f/u and vitamins, as well as no drinking/smoking. rn 11/20 14:01 Order name: Urine --Ancillary (enter results); Complete Time: 14:27 bd 11/20 14:01 Order name: Urine Dipstick--Ancillary (enter results); Complete Time: 14:27 bd 11/20 13:48 Order name: Urine Test (obtain specimen); Complete Time: 13:52 rn 11/20 14:01 Order name: Urine Dipstick-Ancillary (obtain specimen); Complete Time: 14:05 bd Administered Medications: 13:53 Not Given (): Zofran 4 mg PO once rn Disposition: 11/20/18 14:26 Discharged to Home. Impression: Vomiting, First trimester of . - Condition is Stable. - Discharge Instructions: First Trimester of . - Work release form, Medication Reconciliation Form, Thank You Letter, Antibiotic Education, Prescription Opioid Use form. - Follow up: Private Physician; When: As needed; Reason: Recheck today's complaints, Re-evaluation by your physician. - Problem is new. - Symptoms have improved. Signatures: Dispatcher [employer] EDMS Maricruz Hutson Roman, MD MD rn Calderon, Audri RN RN aa5 Araseli Waldron RN RN ss Corrections: (The following items were deleted from the chart) 14:34 14:26 11/20/2018 14:26 Discharged to Home. Impression: Vomiting; First trimester of ss . Condition is Stable. Forms are Medication Reconciliation Form, Thank You Letter, Antibiotic Education, Prescription Opioid Use. Follow up: Private Physician; When: As needed; Reason: Recheck today's complaints, Re-evaluation by your physician. Problem is new. Symptoms have improved. rn
[2018-11-20 14:50] VITALS: BP 102/52; TEMP 98.3; O2SAT 100
== END 2018-11-20 14:34 | disposition home or self-care (01) ==
LOC: ER 13:02
DX: O21.9 Vomiting of pregnancy, unspecified (principal); O99.331 Smoking (tobacco) complicating pregnancy, first trimester
CPT/HCPCS: 81003; 81025; 99283

== ENCOUNTER 2018-12-30 00:02 | Emergency (ER) | payer OTHER ==
--- OUTSIDE RECORDS SUMMARY | 2018-12-30 00:05 | XMS REPORT | Continuity of Care Document ---
[...] [place] culture, currently BACK PAIN Active 06/11/20 [facility] 16 PRE ADMIT Active 06/28/[address] Resolved 10/31/19 Problem 06/15/2016 [facility] 14 V28.81 - SCRN Active 09/14/19 [facility] AJITH 13 Outpatient Imaging [facility] Encounter for Active Problem 04/05/2017 [...] 07/17/[address] [facility] [place] Active [facility] RELATED CONDITIONS, UNSP, UNSP Medications Medication Details Route Status Patient Ordering Order Source Instructions Provider Date Ibuprofen EVERY EIGHT Active [place] 07/17/ St[facility] HOURS 2017 [facility] - NEEDED PRN [place] For Xpct-Iv-Lpug ache DAILY Active St. Vit/Iron 2017 [facility] - Fumarate/Fa [place] Triamcinolone 1 Externally Active 0.05 % [facility] 03/30/ Brittanie Acetonide application Externally 2017 [facility] to affected Twice a day area Nystatin 1 Externally Active [id number] [facility] 03/30/ Brittanie application UNIT/GM 2016 [place] [...] cap, PO, Active MH Daily, 0 2015 [facility] Refill(s) Calcium 1,000 mL, Inactive Chloride Rate: 125 2015 [place] 0.0014 MEQ/ML ml/hr, / Potassium Infuse over: Chloride 0.004 8 hr, Route: MEQ/ML / IV, Total Sodium Volume: Chloride 0.103 1,000, Start MEQ/ML / date: Sodium Lactate 06/12/16 0.028 MEQ/ML 0:41:00 CDT, Injectable Duration: 30 Solution day, Stop date: 07/12/16 0:40:00 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 tassium Clav [...] Comments Source Updated diphtheria/pertus 06/14/2016 Not Given [facility] sis, acel/tetanus adult Tdap Vaccine 11/21/2012 completed [facility] [place] Results Order Name Results Value Reference Date Interpretation Comments Source Range Laboratory White Blood 8.4 K/uL 4.3 - 10.9 07/17 [facility] Studies Count /2016 [facility] [place] Laboratory Red Cell 13.4 % 12.1 - 07/17 [facility] Studies Distribution 15.2 [facility] Width [place] Laboratory Red Blood 3.49 M/uL 3.86 - 07/17 [facility] Studies Count 4.86 [facility] [place] Laboratory Platelet 213 K/uL 152 - 406 07/17 [facility] Studies Count /2016 [facility] [place] Laboratory Mean 7.9 fL 7.6 - 11.3 07/17 [facility] Studies Platelet /2016 [facility] Volume [place] Laboratory Mean 89.5 fL 80 - 100 07/17 [facility] Studies Corpuscular /2016 [facility] Volume [place] Laboratory Mean 34.1 g/dL 32.0 - 07/17 [facility] Studies Corpuscular 36.0 /2016 [facility] Hemoglobin [place] Concent Laboratory Mean 30.5 pg 27.0 - 07/17 [facility] Studies Corpuscular 35.0 /2016 [facility] Hemoglobin [place] Laboratory Hemoglobin 10.6 g/dL 12.0 - 07/17 [facility] Studies 15.0 /2016 [facility] [place] Laboratory Hematocrit 31.2 % 36.0 - 07/17 [facility] Studies 45.0 /2016 [facility] [place] [facility] Urine Urine 07/16 [facility] Studies Phencyclidin Phencyclid /2016 [facility] - e Screen ine Screen [place] Laboratory Urine Urine 07/16 [facility] Studies Barbiturates Barbiturat /2016 [facility] - Screen es Screen [place] Laboratory Ur Ur 07/16 [facility] Studies Tetrahydroca Tetrahydro [facility] nnabinol cannabinol [place] (THC) Scrn (THC) Scrn Laboratory Oxycodone Oxycodone 07/[address] [facility] [address] Studies Screen Screen /2016 [facility] [place] [facility] Opiates Opiates 07/16 [facility] Studies Screen Screen /2016 [facility] [place] [facility] MDMA MDMA 07/16 [facility] Studies (Ecstasy) (Ecstasy) /2016 [facility] - Screen Screen [place] Laboratory Cocaine Cocaine 07/16 [facility] Studies Screen Screen /2016 [facility] [place] [facility] Benzodiazepi Benzodiaze 07/16 [facility] Studies uzma Screen pines /2016 [facility] Screen [place] Laboratory Amphetamines Amphetamin 07/16 [facility] Studies Screen es Screen /2016 [facility] [place] Laboratory Rapid Plasma Rapid 07/16 [facility] Studies Reagin Plasma /2016 [facility] Reagin [place] Laboratory HIV (1&2) HIV (1&2) 07/16 [facility] Studies Antibody Antibody /2016 [facility] Rapid Rapid [place] Laboratory Urine pH 6.5 07/16 [facility] Studies /2016 [facility] [place] Laboratory Urine WBC Urine WBC 07/16 [facility] Studies /2016 [facility] [place] Laboratory Urine 1.0 mg/dL 07/16 [facility] Studies Urobilinogen /2016 [facility] [place] [facility] Urine Total Urine 07/16 [facility] Studies Protein Total /2016 [facility] Protein [place] Laboratory Urine Urine 07/16 [facility] Studies Squamous Squamous /2016 [facility] Epithelial Epithelial [place] Cells Cells Laboratory Urine 1.020 07/16 [facility] Studies Specific /2016 [facility] [place] Laboratory Urine RBC null 07/16 [facility] Studies /2016 [facility] [place] [facility] Urine Urine 07/16 [facility] Studies Nitrite Nitrite /2016 [facility] [place] [facility] Urine Urine 07/16 [facility] Studies Leukocyte Leukocyte /2016 [facility] Esterase Esterase [place] Laboratory Urine Urine 07/16 [facility] Studies Ketones Ketones /2016 [facility] [place] Laboratory Urine Urine 07/16 [facility] Studies Glucose Glucose /2016 [facility] [place] [facility] Urine Urine 07/16 [facility] Studies Culture Culture /2016 [facility] Reflexed Reflexed [place] Laboratory Urine Color Urine 07/16 [facility] Studies Color /2016 [facility] [place] [facility] Urine Blood Urine 07/16 [facility] Studies Blood /2016 [facility] [place] [facility] Urine Urine 07/[address] Studies Bilirubin Bilirubin /2016 [facility] [place] [facility] Urine null 07/16 [facility]. Studies Bacteria /2016 [facility] [place] [facility] Urine Urine 07/16 [facility]. Studies Appearance Appearance /2016 [facility] [place] Laboratory Urine Urine 07/16 [facility]. Studies Amorphous Amorphous [facility] - Sediment Sediment [place] Laboratory Neutrophils 72.6 % 41.7 - 07/[address] [facility] [address] Studies % 73.7 /2016 [facility] [place] Laboratory Monocytes % 4.6 % 3.3 - 12.3 07/[address] [facility] [address] Studies /2016 [facility] [place] [facility] Lymphocytes 21.8 % 15.3 - 07/16 [facility]. Studies % 44.8 /2016 [facility] [place] [facility] Eosinophils 0.6 % 0 - 4.4 07/[address] [facility] [address] Studies % /2016 [facility] [place] [facility] Basophils % 0.4 % 0 - 1.3 07/16 [facility]. Studies [facility] [place] [facility] Absolute 6.1 K/uL 1.8 - 8.0 07/16 [facility]. Studies Neutrophil /2016 [facility] [place] [facility] Absolute 0.4 K/uL 0.1 - 1.3 07/16 [facility]. Studies Monocytes [facility] - (CBC) [place] Laboratory Absolute 1.8 K/uL 0.7 - 4.9 07/16 [facility]. Studies Lymphocytes [facility] - (CBC) [place] Laboratory Absolute 0.1 K/uL 0 - 0.5 07/16 [facility]. Studies Eosinophils [facility] - (CBC) [place] Laboratory Absolute 0.0 K/uL 0 - 0.5 07/16 [facility]. Studies Basophils [facility] - (CBC) [place] Laboratory Rapid Plasma Rapid 07/16 [facility] Studies Reagin Titer Plasma /2016 [facility] Reagin [place] Titer Clinical Indication: - Z36 Encounter for screening of mother. 04/24 - [facility] complete complete /2016 - Outpatient single single Comparison: None. Imaging gestation gestation US [facility] US Read by: Aggie Pearce [...] on the clinical development during . SL: [id number] Vital Signs Vital Sign Value Date Comments Source Temperature Oral (F) 97.8 F 07/17/[address] [facility] [place] Heart Rate 68 07/17/[address] [facility] [place] Respitory Rate 18 07/17/[address] [facility] [place] Systolic (mm Hg) 105 07/17/[address] [facility] [place] Diastolic (mm Hg) 60 07/17/[address] [facility] [place] Height 63 07/16/[address] [facility] [place] Weight 140.00 07/16/[address] [facility] [place] Weight 136 03/27/2017 [facility] Height 63 03/27/2017 [facility] Diastolic (mm Hg) 68 03/27/2017 [facility] Systolic (mm Hg) 100 03/27/2017 Brittanie [place] Respitory Rate 18 06/12/2016 [facility] Systolic (mm Hg) 124 06/12/2016 [facility] Diastolic (mm Hg) 72 06/12/2016 [facility] Respitory Rate 18 06/12/2016 [facility] Weight 77.727 06/12/2016 [facility] BMI Calculated 30.35 06/12/2016 [facility] Height 160.02 cm 06/12/2016 [facility] Systolic (mm Hg) 122 06/12/2016 [facility] Diastolic (mm Hg) 72 06/12/2016 [facility] Encounters Location Location Encounter Encounter Reason Attending ADM DC Status Source Details Type Number For Provider Date Date Visit OD [id number] V28.81 BRITTANIE 09/25 Active [facility] 0 - SCRN SCHETT /2012 Outpatie nt AJITH Imaging [facility] Observation [id number] [place] 06/12 06/12 V[place] 3 [place] /2015 [facility] . Registered [id number] 07/[address] [facility] [address] [facility] Referred Selena Garcia rt [facility] St. Discharged [id number] 07/16 07/[address] [facility] [address] [facility] Inpatient Selena Garcia rt Procedures Procedure Code Date Perfomer Comments Source [place] Count [id number] 07/16/[address] [facility] [address] Selena Nichole [id number] 07/16/[address] [facility] [address] Selena Nichole Appendix [id number] 08/14/2013 [facility]
--- OUTSIDE RECORDS SUMMARY | 2018-12-30 00:06 | XMS REPORT ---
:1995 Author Organization [employer] Care Team Providers Name Role Phone Florian Daigle Provider Role Unavailable Allergies No Known Allergies Problems Problem Type Condition Code Onset Dates Condition Status Problem Encounter for supervision of normal Z34.00 Active first , unspecified trimester Medications Medication Code Code Instructions Start End Status Dosage System Date Date Nystatin NDC 01948-4 [id number] UNIT/GM Mar 30, May 14, Active 1 application 054-15 Externally 2016 2016 to affected Twice a day area Triamcinolone NDC 99093-1 0.05 % Mar 30, Active 1 application Acetonide 136-17 Externally 2017 to affected Twice a day area Results No Known Results Summary Purpose [email or web address] Submission
--- OUTSIDE RECORDS SUMMARY | 2018-12-30 00:06 | XMS REPORT ---
:1995 Author Organization [employer] Care Team Providers Name Role Phone Florian Daigle Provider Role Unavailable Allergies, Adverse Reactions, Alerts Substance Reaction Event Type N.K.D.A. Info Not Available Non Drug Allergy Problems No Known Problems Medications Medication Code Code Instructions Start End Status Dosage System Date Date Vitafol-One [facility] 70304742368 29-1-200 MG Active 1 capsule Orally Once a day Vitafol-One ND 64300978409 29-1-200 MG Mar 27, Active 1 capsule Orally Once a 2016 day Triamcinolone [facility] [address]-19 0.05 % Mar 30, Active 1 application Acetonide Externally 2017 to affected Twice a day area Results No Known Results Summary Purpose [employer] Submission
--- OUTSIDE RECORDS SUMMARY | 2018-12-30 00:06 | XMS REPORT ---
[...] Start Date End Date Status Dosage Vitafol-One [facility] 82216-275 29-1-200 MG Mar 27, Active 1 capsule 0-30 Orally Once a day 2016 Vitafol-One [facility] [place] 78828-142 29-1-200 MG Active 1 capsule 0-30 Orally Once a day Cephalexin [facility] [place] [place] 90171-312 500 MG Orally Mar 27, Apr 03, Active 1 capsule 7-01 three times a day 2016 2016 (tid) Vital Signs Date/Time: Mar 27, 2017 BMI 24.091 Index Weight 136 lbs Height 63 in Blood Pressure Diastolic 68 mm Hg Blood Pressure Systolic 100 mm Hg Results No Known Results Summary Purpose [employer] Submission
--- OUTSIDE RECORDS SUMMARY | 2018-12-30 00:06 | XMS REPORT ---
:1995 [facility] Address [address] [place] [address] [address] [place] [address] Care Team Providers Name Role Phone Unavailable Unavailable Unavailable Problems This patient has no known problems. Allergies, Adverse Reactions, Alerts This patient has no known allergies or adverse reactions. Medications This patient has no known medications.
--- OUTSIDE RECORDS SUMMARY | 2018-12-30 00:06 | XMS REPORT ---
:1995 Author Organization [employer] Care Team Providers Name Role Phone Florian Daigle Provider Role Unavailable Allergies, Adverse Reactions, Alerts Substance Reaction Event Type N.K.D.A. Info Not Available Non Drug Allergy Problems No Known Problems Medications Medication Code Code Instructions Start End Status Dosage System Date Date Vitafol-One [facility] 42786882040 29-1-200 MG Mar 27, Active 1 capsule Orally Once a 2016 day Triamcinolone [facility] [address]-56 0.05 % Mar 30, Active 1 application Acetonide Externally 2017 to affected Twice a day area Vitafol-One [facility] 56645354236 29-1-200 MG Active 1 capsule Orally Once a day Results No Known Results Summary Purpose [employer] Submission
[2018-12-30 01:06] LABS: Urine Blood NEGATIVE (NEG); Urine Glucose NEGATIVE (NEG); Urine Protein TRACE (NEG); Urine Specific Gravity 1.025 (1.005-1.030)
--- NOTE | 2018-12-30 01:45 | ER ---
Nurse's Notes [facility] Name: Yasmin Walker Age: 23 yrs Sex: Female : 1995 Arrival Date: 12/30/2018 Time: 00:03 Bed 27 Private MD: Diagnosis: Contusion of right hip Presentation: 12/30 00:17 Presenting complaint: Patient states: I WAS IN [place] ONE DAY AGO. I SLEEP ON THE TOP BANK AND I FELL. I HIT MY RIGHT SIDE OF MY HIP. I AM AND I JUST WANT TO MAKE SURE EVERYTHING IS FINE. PAIN IS FROM THE BACK AND ABDOMEN, 8/10. NO VAGINAL DISCHARGE. DID NOT HIT HEAD. PATIENT IS . Transition of care: patient was not received from another setting of care. Onset of symptoms was December 29, 2018 at 08:00. Risk Assessment: Do you want to hurt yourself or someone else? Patient reports no desire to harm self or others. Initial Sepsis Screen: Does the patient meet any 2 criteria? No. Patient's initial sepsis screen is negative. Does the patient have a suspected source of infection? No. Patient's initial sepsis screen is negative. Care prior to arrival: None. 00:17 Method Of Arrival: Ambulatory rv 00:17 Acuity: RICO 4 rv Triage Assessment: 00:21 General: Appears in no apparent distress. comfortable, Behavior is calm, cooperative. rv Pain: Complains of pain in back and abdomen. EENT: No signs and/or symptoms were reported regarding the EENT system. Neuro: Level of Consciousness is awake, alert, obeys commands, Oriented to person, place, time, situation. Cardiovascular: Capillary refill < 3 seconds. Respiratory: Airway is patent. GI: Abdomen is round Reports lower abdominal pain. : No signs and/or symptoms were reported regarding the genitourinary system. Derm: Skin is intact. Musculoskeletal: Reports pain in back and abdomen. 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 - Social history:: Smoking status: Patient uses tobacco products, 3 STICKS A DAY. - Ebola Screening: : No symptoms or risks identified at this time. Screenin:22 Abuse screen: Denies threats or abuse. Denies injuries from another. Nutritional rv screening: No deficits noted. Tuberculosis screening: No symptoms or risk factors identified. Fall Risk None identified. Vital Signs: 00:19 BP 108 / 69; Pulse 79; Resp 16; Temp 98.5; Pulse Ox 99% ; Weight 61.23 kg; Height 5 ft. rv 3 in. (160.02 cm); 01:00 BP 93 / 53; Pulse 76; Resp 16; Pulse Ox 100% ; rv 01:30 BP 100 / 54; Pulse 70; Resp 15; Temp 98.6; Pulse Ox 100% ; rv 00:19 Body Mass Index 23.91 (61.23 kg, 160.02 cm) rv ED Course: 00:03 Patient arrived in ED. es 00:05 Clay Og MD is Attending Physician. tw4 00:16 Bairon Quispe, TYRESE is Primary Nurse. rv 00:19 Triage completed. rv 00:22 Patient has correct armband on for positive identification. Bed in low position. Call rv light in reach. Side rails up X 1. Adult w/ patient. Pulse ox on. NIBP on. 00:22 Patient placed in an exam room, on a stretcher, on pulse oximetry, Patient notified of rv wait time. 01:48 No provider procedures requiring assistance completed. Patient did not have IV access rv during this emergency room visit. Administered Medications: No medications were administered Outcome: 01:44 Discharge ordered by . tw 01:48 Discharged to home ambulatory. rv 01:48 Condition: good 01:48 Discharge instructions given to patient, Instructed on discharge instructions, follow up and referral plans. Demonstrated understanding of instructions, follow-up care. 01:48 Patient left the ED. rv Signatures: Arin Lizama Terrence, MD MD tw4 Bairon Quispe, RN RN rv
[2018-12-30 08:24] VITALS: O2SAT 100
[2018-12-30 08:25] VITALS: BP 100/54; TEMP 98.6
--- NOTE | 2018-12-31 05:02 | EDPHYS ---
Physician Documentation [facility] Name: Yasmin Walker Age: 23 yrs Sex: Female : 1995 Arrival Date: 12/30/2018 Time: 00:03 Bed 27 Private MD: ED Physician Clay Og HPI: 12/30 23:02 This 23 yrs old Female presents to ER via Ambulatory with complaints of right tw4 hip pain. 23:02 Details of fall: The patient fell from a height, off furniture, approximately 4 feet. tw4 Onset: The symptoms/episode began/occurred yesterday. Associated injuries: The patient sustained right iliac crest and right hip. Severity of symptoms: At their worst the symptoms were mild, in the emergency department the symptoms are unchanged. The patient has not experienced similar symptoms in the past. Pt states that she is however is not having any pelvic pain or vaginal bleesing. 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 - Social history:: Smoking status: Patient uses tobacco products, 3 STICKS A DAY. - Ebola Screening: : No symptoms or risks identified at this time. ROS: 23:02 Constitutional: Negative for fever, chills, and weight loss, Eyes: Negative for injury, tw4 pain, redness, and discharge, Cardiovascular: Negative for chest pain, palpitations, and edema, Respiratory: Negative for shortness of breath, cough, wheezing, and pleuritic chest pain, Abdomen/GI: Negative for abdominal pain, nausea, vomiting, diarrhea, and constipation. 23:02 MS/extremity: Positive for injury or acute deformity, pain, Negative for decreased range of motion, deformity. Exam: 23:02 Constitutional: This is a well developed, well nourished patient who is awake, alert, tw4 and in no acute distress. Head/Face: Normocephalic, atraumatic. Chest/axilla: Normal chest wall appearance and motion. Nontender with no deformity. No lesions are appreciated. Cardiovascular: Regular rate and rhythm with a normal S1 and S2. No gallops, murmurs, or rubs. Normal PMI, no JVD. No pulse deficits. Respiratory: Lungs have equal breath sounds bilaterally, clear to auscultation and percussion. No rales, rhonchi or wheezes noted. No increased work of breathing, no retractions or nasal flaring. Abdomen/GI: Soft, non-tender, with normal bowel sounds. No distension or tympany. No guarding or rebound. No evidence of tenderness throughout. 23:02 Musculoskeletal/extremity: Extremities: grossly normal except: noted in the right iliac crest and right hip: pain, tenderness, There is no evidence of contusion, decreased ROM, deformity, ecchymosis, laceration, pain. Vital Signs: 00:19 BP 108 / 69; Pulse 79; Resp 16; Temp 98.5; Pulse Ox 99% ; Weight 61.23 kg; Height 5 ft. rv 3 in. (160.02 cm); 01:00 BP 93 / 53; Pulse 76; Resp 16; Pulse Ox 100% ; rv 01:30 BP 100 / 54; Pulse 70; Resp 15; Temp 98.6; Pulse Ox 100% ; rv 00:19 Body Mass Index 23.91 (61.23 kg, 160.02 cm) rv MDM: 00:05 Patient medically screened. tw4 23:02 Differential diagnosis: abrasion, closed head injury, contusion, fracture. Data tw4 reviewed: vital signs, nurses notes. Data interpreted: Pulse oximetry: Interpretation: normal. Counseling: I had a detailed discussion with the patient and/or guardian regarding: the historical points, exam findings, and any diagnostic results supporting the discharge/admit diagnosis. Special discussion: Based on the patient's Hx, exam, and Dx evaluation, there is no indication for emergent surgery or inpatient Tx. It is understood by the patient/guardian that if the Sx's persist or worsen they need to return immediately for re-evaluation. I discussed with the patient/guardian in detail that at this point there is no indication for admission to the hospital. It is understood, however, that if the symptoms persist or worsen the patient needs to return immediately for re-evaluation. 12/30 00:36 Order name: Urine Dipstick--Ancillary (enter results) ar5 12/30 00:36 Order name: Urine --Ancillary (enter results) ar5 Administered Medications: No medications were administered Disposition: 12/30/18 01:44 Discharged to Home. Impression: Contusion of right hip. - Condition is Fair. - Discharge Instructions: Contusion, [id number]. - Medication Reconciliation Form, Thank You Letter, Antibiotic Education, Prescription Opioid Use form. - Follow up: Private Physician; When: Upon discharge from the Emergency Department; Reason: If symptoms return, Recheck today's complaints, Continuance of care. - Problem is new. - Symptoms have improved. Signatures: Dispatcher [employer] Clay Powell MD MD tw4 Bairon Quispe RN RN rv Corrections: (The following items were deleted from the chart) 01:48 01:44 12/30/2018 01:44 Discharged to Home. Impression: Contusion of right hip. rv Condition is Fair. Forms are Medication Reconciliation Form, Thank You Letter, Antibiotic Education, Prescription Opioid Use. Follow up: Private Physician; When: Upon discharge from the Emergency Department; Reason: If symptoms return, Recheck today's complaints, Continuance of care. Problem is new. Symptoms have improved. tw4
== END 2018-12-30 01:48 | disposition home or self-care (01) ==
LOC: ER 00:02
DX: S70.01XA Contusion of right hip, initial encounter (principal); O99.330 Smoking (tobacco) complicating pregnancy, unspecified trimester; W06.XXXA Fall from bed, initial encounter; Y93.89 Activity, other specified; Y92.143 Cell of prison as the place of occurrence of the external cause; Z3A.00 Weeks of gestation of pregnancy not specified
CPT/HCPCS: 81003; 81025; 99283

== ENCOUNTER 2019-04-13 21:44 | Emergency (ER) | payer OTHER ==
--- OUTSIDE RECORDS SUMMARY | 2019-04-13 21:46 | XMS REPORT | Continuity of Care Document ---
:1995 Author Organization [employer] Care Team Providers Name Role Phone [employer] Unavailable Unavailable Problems Problem Status Onset Classification Date Comments Source Date Reported Spontaneous Active 07/17/20 Finding 07/17/[address] [facility] onset of [facility] [place] (spontaneous Active 07/17/20 Finding 07/17/[address] [facility] vaginal [facility] delivery) [place] 39 weeks Active 07/17/20 Finding 07/17/[address] [facility] gestation of 17 [facility] [place] GBS (group B Resolved 07/17/20 Finding 07/17/[address] [facility] Streptococcus [facility] - carrier), +RV [place] culture, currently Spontaneous Active 07/17/20 Finding 07/17/[address] [facility] vaginal delivery 17 [facility] [place] Group B Active 07/17/20 Finding 07/17/[address] [facility] Streptococcus 17 [facility] - carrier, +RV [place] culture, currently BACK PAIN Active 06/11/20 [facility] 16 PRE ADMIT Active 06/28/[address] Patient Resolved 10/31/19 Problem 06/15/2016 [facility] currently 14 (finding) V28.81 - SCRN Active 09/14/19 [facility] AJITH 13 Outpatient Imaging [facility] Encounter for Active Problem 04/05/2017 Brittanie [...] [facility] [place] Hypokalemia Resolved Finding 07/17/2017 [facility] [place] Active [facility] RELATED CONDITIONS, UNSP, UNSP Medications Medication Details Route Status Patient Ordering Order Source Instructions Provider Date Ibuprofen EVERY EIGHT Active [place] [facility] St[facility] HOURS 2016 [facility] - NEEDED PRN [place] For Xhnt-Bc-Pdia ache DAILY Active [facility] St. Vit/Iron 2016 [facility] Fumarate/Fa [place] Nystatin 1 Externally Active [id number] [place] Brittanie application UNIT/GM 2016 [place] to affected Externally area Twice a day Triamcinolone 1 Externally Active 0.05 % inrich Acetonide application Externally 2016 [place] to affected Twice a day area Vitafol-One 1 capsule Orally Active 29-1-200 MG Sche03/27/ Brittanie Orally Once a 2016 day Cephalexin 1 capsule Orally Active 500 MG Orally Sche Brittanie three times a 2016 Sche day (tid) Vitafol-One 1 capsule Orally Active 29-1-200 MG [place] 03/27/ Brittanie Orally Once a 2016 day PNV-Total 1 cap, PO, Active Daily, 0 2015 [facility] Refill(s) Calcium 1,000 mL, Inactive Chloride Rate: 125 2015 [facility] 0.0014 MEQ/ML ml/hr, / Potassium Infuse over: Chloride 0.004 8 hr, Route: MEQ/ML / IV, Total Sodium Volume: Chloride 0.103 1,000, Start MEQ/ML / date: Sodium Lactate 06/12/16 0.028 MEQ/ML 0:41:00 CDT, Injectable Duration: 30 Solution day, Stop date: 07/12/16 0:40:00 [employer] Amoxicillin/Po Q12H Active [facility] tassium Clav 2013 [facility] [place] Hydrocodone/Ac Q4H PRN For Active [facility] etaminophen Pain 2013 [facility] [place] Vitafol-One 1 capsule Orally Active 29-1-200 MG [place] Brittanie Orally Once a [place] day Vitafol-One 1 capsule Orally Active 29-1-200 MG [place] Brittanie Orally Once a day Allergies, Adverse Reactions, Alerts Substance Category Reaction Severity Reaction Status Date Comments Source type Reported N.K.D.A. Adverse Info Not Adverse Active Brittanie Reaction Available Reaction 7 [place] Immunizations Immunization Date Given Site Status Last Comments Source Updated diphtheria/pertus 06/14/2016 Not Given [facility] sis, acel/tetanus adult Tdap Vaccine 11/21/2012 completed [facility] [place] Results Order Name Results Value Reference Date Interpretation Comments Source Range Laboratory White Blood 8.4 4.3 - 10.9 07/17 [facility] Studies Count /2016 [facility] [place] Laboratory Red Cell 13.4 12.1 - 07/17 [facility] Studies Distribution 15.2 [facility] Width [place] Laboratory Red Blood 3.49 3.86 - 07/17 [facility] Studies Count 4.86 [facility] [place] Laboratory Platelet 213 152 - 406 07/17 [facility] Studies Count [facility] [place] Laboratory Mean Platelet 7.9 7.6 - 11.3 07/17 [facility] Studies Volume /2016 [facility] [place] Laboratory Mean 89.5 80 - 100 07/17 [facility] Studies Corpuscular /2016 [facility] Volume [place] Laboratory Mean 34.1 32.0 - 07/17 [facility] Studies Corpuscular 36.0 [facility] Hemoglobin [place] [facility] Laboratory Mean 30.5 27.0 - 07/17 [facility] Studies Corpuscular 35.0 /2016 [facility] Hemoglobin [place] Laboratory Hemoglobin 10.6 12.0 - 07/17 [facility] Studies 15.0 [facility] [place] Laboratory Hematocrit 31.2 36.0 - 07/17 [facility] Studies 45.0 /2016 [facility] [place] Laboratory Urine Urine 07/16 [facility] Studies Phencyclidine Phencyclidi /2016 [facility] Screen ne Screen [place] Laboratory Urine Urine 07/16 [facility] Studies Barbiturates Barbiturate /2016 [facility] - Screen s Screen [place] Laboratory Ur Ur 07/16 [facility] Studies Tetrahydrocan Tetrahydroc /2016 [facility] - nabinol (THC) annabinol [place] Scrn (THC) Scrn Laboratory Oxycodone Oxycodone 07/16 [facility] Studies Screen Screen /2016 [facility] [place] Laboratory Opiates Opiates 07/16 [facility] Studies Screen Screen /2016 [facility] [place] Laboratory MDMA MDMA 07/16 [facility] Studies (Ecstasy) (Ecstasy) /2016 [facility] - Screen Screen [place] Laboratory Cocaine Cocaine 07/16 [facility] Studies Screen Screen /2016 [facility] [place] Laboratory Benzodiazepin Benzodiazep 07/16 [facility] Studies es Screen jaycee Screen /2016 [facility] [place] Laboratory Amphetamines Amphetamine 07/16 [facility] Studies Screen s Screen /2016 [facility] [place] Laboratory Rapid Plasma Rapid 07/16 [facility] Studies Reagin Plasma /[address] [facility] [facility] - [place] Laboratory HIV (1&2) HIV (1&2) 07/16 [facility] Studies Antibody Antibody /2016 [facility] - Rapid Rapid [place] Laboratory Urine pH 6.5 07/16 [facility] Studies /2016 [facility] [place] Laboratory Urine WBC Urine WBC 07/16 [facility] Studies /2016 [facility] [place] Laboratory Urine 1.0 07/16 [facility] Studies Urobilinogen /2016 [facility] [place] Laboratory Urine Total Urine Total 07/16 [facility] Studies Protein Protein /2016 [facility] [place] Laboratory Urine Urine 07/16 [facility] Studies Squamous Squamous /2016 [facility] Epithelial Epithelial [place] Cells Cells Laboratory Urine 1.020 07/16 [facility] Studies Specific /2016 [facility] [place] Laboratory Urine RBC <5 07/16 [facility] Studies /2016 [facility] [place] Laboratory Urine Nitrite Urine 07/16 [facility] Studies Nitrite /2016 [facility] [place] Laboratory Urine Urine 07/16 [facility] Studies Leukocyte Leukocyte /2016 [facility] Esterase Esterase [place] Laboratory Urine Ketones Urine 07/16 [facility] Studies Ketones /2016 [facility] [place] Laboratory Urine Glucose Urine 07/16 [facility] Studies Glucose /2016 [facility] [place] Laboratory Urine Culture Urine 07/16 [facility] Studies Reflexed Culture /2016 [facility] Reflexed [place] Laboratory Urine Color Urine Color 07/16 [facility] Studies /2016 [facility] [place] Laboratory Urine Blood Urine Blood 07/16 [facility] Studies /2016 [facility] [place] Laboratory Urine Urine 07/16 [facility]. Studies Bilirubin Bilirubin [facility] [place] Laboratory Urine <20 07/16 [facility]. Studies Bacteria /2016 [facility] [place] Laboratory Urine Urine 07/16 [facility]. Studies Appearance Appearance [facility] [place] Laboratory Urine Urine 07/16 [facility]. Studies Amorphous Amorphous [facility] - Sediment Sediment [place] Laboratory Neutrophils % 72.6 41.7 - 07/16 [facility] St. Studies 73.7 /2016 [facility] [place] Laboratory Monocytes % 4.6 3.3 - 12.3 07/16 [facility] St. Studies [facility] [place] Laboratory Lymphocytes % 21.8 15.3 - 07/16 [facility]. Studies 44.8 /2016 [facility] [place] Laboratory Eosinophils % 0.6 0 - 4.4 07/16 [facility] St. Studies [facility] [place] Laboratory Basophils % 0.4 0 - 1.3 07/16 [facility]. Studies [facility] [place] Laboratory Absolute 6.1 1.8 - 8.0 07/16 [facility]. Studies Neutrophil [facility] [place] Laboratory Absolute 0.4 0.1 - 1.3 07/16 [facility]. Studies Monocytes [facility] - (CBC) [place] Laboratory Absolute 1.8 0.7 - 4.9 07/16 [facility]. Studies Lymphocytes [facility] (CBC) [place] Laboratory Absolute 0.1 0 - 0.5 07/16 [facility]. Studies Eosinophils [facility] - (CBC) [place] Laboratory Absolute 0.0 0 - 0.5 07/16 [facility]. Studies Basophils [facility] (CBC) [place] Laboratory Rapid Plasma Rapid 07/16 [facility]. Studies Reagin Titer Plasma /2016 [facility] [place] Titer Pathology Reports No Data Provided for This Section Diagnostic Reports Report Value Date Source complete Clinical Indication: - Z36 Encounter for screening of mother. 04/24/2017 [facility] Outpatient single gestation US Comparison: None. [facility] TECHNIQUE: Obstetrical ultrasound is performed with pratt scale and M-mode imaging. IMPRESSION: Please see the computer-generated obstetrical ultrasound report for this examination. This study was read and the report is in the EMR, under 'Ultrasound' GENERAL OBSERVATIONS REGARDING ULTRASOUND: 1. A normal or negative sonogram report should not delay further investigation of a clinically suspicious or abnormal . 2. position or overlap of parts may prevent complete evaluation of the fetus. 3. Congenital and developmental abnormalities are not always sonographically visualized. 4. Repeat sonograms may be necessary depending on the clinical development during . SL: [id number] Consultation Notes No Data Provided for This Section Discharge Summaries No Data Provided for This Section History and Physicals No Data Provided for This Section Vital Signs Vital Sign Value Date Comments Source Temperature Oral (F) 97.8 F 07/17/2017 [facility] [place] Heart Rate 68 07/17/2017 [facility] [place] Respitory Rate 18 07/17/2017 [facility] [place] Systolic (mm Hg) 105 07/17/2017 [facility] [place] Diastolic (mm Hg) 60 07/17/2017 [facility] [address] - [place] Height 63 07/16/2017 [facility] [place] Weight 140.00 07/16/2017 [facility] [place] Weight 136 03/27/2017 [facility] Height 63 03/27/2017 [facility] Diastolic (mm Hg) 68 03/27/2017 [facility] Systolic (mm Hg) 100 03/27/2017 [facility] [place] Respitory Rate 18 06/12/2016 [facility] Systolic (mm Hg) 124 06/12/2016 [facility] Diastolic (mm Hg) 72 06/12/2016 [facility] Respitory Rate 18 06/12/2016 [facility] Weight 77.727 06/12/2016 [facility] BMI Calculated 30.35 06/12/2016 [facility] Height 160.02 cm 06/12/2016 [facility] Systolic (mm Hg) 122 06/12/2016 [facility] Diastolic (mm Hg) 72 06/12/2016 [facility] Encounters Location Location Encounter Encounter Reason Attending ADM DC Status Source Details Type Number For Provider Date Date Visit OD [id number] V28.81 BRITTANIE 09/25 Active [facility] 0 - SCRN [place]HETT /2012 Outpatie nt [facility] Imaging [facility] Observation [id number] [place] 06/12 06/12 Vini 3 [place] /2015 [facility]. Registered [id number] 07/13 JASMIN Mukherjee's Referred [facility] [place] [facility] [id number] 07/16 07/17 [facility]jee[facility]patient [facility] [place] Procedures Procedure Code Date Perfomer Comments Source [place] Count [id number] 07/16/2017 JASMIN Cifuentest [id number] 07/16/2017 JASMIN Presley Appendix [id number] 08/14/2013 [facility] operation Assessment and Plan Assessment and Plan Date Source Extracted from:Title: OB Triage H&P L&D * 06/12/2016 [facility] Author: Bell Aquino MD Date: 06/12/16 Impression and Plan Diagnosis Back pain affecting ([id number] O26.899, Working, Medical). condition: Stable. Maternal condition: Stable. 20 yo at 38w2d here for back pain 1. Back pain: Denies pain medication, will admit for overnight obs given social situation and residence being far. Plan to repeat SVE in AM 2. FHTs reassuring 3. GBS unknown, no records with patient 4. Dispo: Admit for obs Plan of Care Plan of Care Date Source Instructions 07/17/2017 JASMIN Turc[facility] - [place] [facility] for Labor and Delivery, Vaginal Instructions 07/17/2017 JASMIN Turcios - [place] [facility] for Labor and Delivery, Vaginal Social History Social History Date Source Query Response Date Recorded Comment 07/17/2017 JASMIN Presley Alcohol Use? No July 16, 2017 11:09am CD- Drugs? No July 16, 2017 11:09am Query Response Start Date Stop Date Smoking Status Never smoker Social History TypeResponse 06/12/2016 [facility] Smoking Status Never smoker; Type: Cigarettes; Previous treatment: None; Ready to change: No; Concerns about tobacco use in household: No; Exposure to Tobacco Smoke None; Cigarette Smoking Last 365 Days No; Reg Smoking Cessation Counseling No Family History No Data Provided for This Section Advance Directives Order Name Results Value Date Source Advance Directives Advance Directives Advance Directive Response Recorded Date/Time 07/17/2017 JASMIN Turcios - Does Patient Have Living Will Dionisio No July 16, 2017 6:00pm Durable Power of Hospital Medical Biller for Health Care No July 16, 2017 11:09am Would you like additional information No July 16, 2017 10:28am Functional Status No Data Provided for This Section
--- OUTSIDE RECORDS SUMMARY | 2019-04-13 21:47 | XMS REPORT ---
:1995 Author Organization [employer] Care Team Providers Name Role Phone Florian Daigle Provider Role Unavailable Allergies, Adverse Reactions, Alerts Substance Reaction Event Type N.K.D.A. Info Not Available Non Drug Allergy Problems No Known Problems Medications Medication Code Code Instructions Start End Status Dosage System Date Date Vitafol-One [facility] 50363560009 29-1-200 MG Mar 27, Active 1 capsule Orally Once a 2016 day Triamcinolone [facility] [address]-95 0.05 % Mar 30, Active 1 application Acetonide Externally 2017 to affected Twice a day area Vitafol-One [facility] 15639529800 29-1-200 MG Active 1 capsule Orally Once a day Results No Known Results Summary Purpose [employer] Submission
--- OUTSIDE RECORDS SUMMARY | 2019-04-13 21:47 | XMS REPORT ---
:1995 Author Organization [employer] Care Team Providers Name Role Phone Florian Daigle Provider Role Unavailable Allergies No Known Allergies Problems Problem Type Condition Code Onset Dates Condition Status Problem Encounter for supervision of normal Z34.00 Active first , unspecified trimester Medications Medication Code Code Instructions Start End Status Dosage System Date Date Nystatin NDC 78396-7 [id number] UNIT/GM Mar 30, May 14, Active 1 application 054-15 Externally 2016 2016 to affected Twice a day area Triamcinolone NDC 61976-3 0.05 % Mar 30, Active 1 application Acetonide 136-17 Externally 2017 to affected Twice a day area Results No Known Results Summary Purpose [employer] Submission
--- OUTSIDE RECORDS SUMMARY | 2019-04-13 21:47 | XMS REPORT ---
:1995 Author Organization [employer] Care Team Providers Name Role Phone Florian Daigle Provider Role Unavailable Allergies, Adverse Reactions, Alerts Substance Reaction Event Type N.K.D.A. Info Not Available Non Drug Allergy Problems No Known Problems Medications Medication Code Code Instructions Start End Status Dosage System Date Date Vitafol-One [facility] 47009481237 29-1-200 MG Active 1 capsule Orally Once a day Vitafol-One ND 45701950052 29-1-200 MG Mar 27, Active 1 capsule Orally Once a 2016 day Triamcinolone [facility] [address]-25 0.05 % Mar 30, Active 1 application Acetonide Externally 2017 to affected Twice a day area Results No Known Results Summary Purpose [employer] Submission
--- OUTSIDE RECORDS SUMMARY | 2019-04-13 21:47 | XMS REPORT ---
[...] Start Date End Date Status Dosage Vitafol-One [facility] 42278-456 29-1-200 MG Mar 27, Active 1 capsule 0-30 Orally Once a day 2016 Vitafol-One [facility] 36560-703 29-1-200 MG Active 1 capsule 0-30 Orally Once a day Cephalexin [facility] 33632-310 500 MG Orally Mar 27, Apr 03, Active 1 capsule 7-01 three times a day 2016 2016 (tid) Vital Signs Date/Time: Mar 27, 2017 BMI 24.091 Index Weight 136 lbs Height 63 in Blood Pressure Diastolic 68 mm Hg Blood Pressure Systolic 100 mm Hg Results No Known Results Summary Purpose [employer] Submission
--- NOTE | 2019-04-13 23:08 | ER ---
Nurse's Notes [facility] Name: Yasmin Walker Age: 23 yrs Sex: Female : 1995 Arrival Date: 04/13/2019 Time: 21:46 Bed 6 Private MD: Diagnosis: Chest pain, unspecified;Gastro-esophageal reflux disease Presentation: 04/13 21:49 Presenting complaint: Patient states: I have been having pain in my chest, I am 34 la1 weeks . I also having a lot of burping. Presenting complaint:. Transition of care: patient was not received from another setting of care. Onset of symptoms was April 13, 2019. Risk Assessment: Do you want to hurt yourself or someone else? Patient reports no desire to harm self or others. Initial Sepsis Screen: Does the patient meet any 2 criteria? No. Patient's initial sepsis screen is negative. Does the patient have a suspected source of infection? No. Patient's initial sepsis screen is negative. Care prior to arrival: None. 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 - Social history:: Smoking status: Patient uses tobacco products, denies chronic smoking, but will smoke occasionally. - Ebola Screening: : No symptoms or risks identified at this time. - Family history:: not pertinent. - Hospitalizations: : No recent hospitalization is reported. Screenin:57 Abuse screen: Denies threats or abuse. Nutritional screening: No deficits noted. ea Tuberculosis screening: No symptoms or risk factors identified. Fall Risk None identified. Assessment: 21:58 General: Appears uncomfortable, Behavior is appropriate for age. Pain: Complains of ea pain in chest Pain does not radiate. Pain began suddenly. Neuro: Level of Consciousness is awake, alert, obeys commands, Oriented to person, place, time, situation. Cardiovascular: Patient's skin is warm and dry. Respiratory: Airway is patent Respiratory effort is even, unlabored, Respiratory pattern is regular, symmetrical. Derm: Skin is pink, warm \T\ dry. 22:25 Reassessment: Patient and/or family updated on plan of care and expected duration. Pain ea level reassessed. Patient is alert, oriented x 3, equal unlabored respirations, skin warm/dry/pink. 23:18 Reassessment: Patient and/or family updated on plan of care and expected duration. Pain ea level reassessed. Patient is alert, oriented x 3, equal unlabored respirations, skin warm/dry/pink. Discharge instruction given to patient, verbalized the understanding of instruction. Pt left ambulatory, pt tolerating well. Vital Signs: 21:50 BP 114 / 74; Pulse 85; Resp 16; Temp 98.0; Pulse Ox 100% on R/A; Weight 68.04 kg; la1 Height 5 ft. 3 in. (160.02 cm); 23:09 BP 103 / 69; Pulse 97; Resp 16; Temp 98; Pulse Ox 98% ; rv 23:11 BP 103 / 69; Pulse 85; Resp 18; Pulse Ox 98% on R/A; ea 21:50 Body Mass Index 26.57 (68.04 kg, 160.02 cm) la1 ED Course: 21:46 Patient arrived in ED. ds1 21:49 Triage completed. la1 21:50 Bairon Quispe, RN is Primary Nurse. rv 21:51 Arm band placed on right wrist. la1 21:57 Patient has correct armband on for positive identification. Bed in low position. Call ea light in reach. Side rails up X2. security monitor on. Pulse ox on. NIBP on. 21:57 Patient maintains SpO2 saturation greater than 95% on room air. ea 22:02 Yousuf Miller MD is Attending Physician. rn 23:11 No provider procedures requiring assistance completed. Patient did not have IV access ea during this emergency room visit. Administered Medications: No medications were administered Outcome: 23:05 Discharge ordered by . rn 23:12 Discharged to home ambulatory. rv 23:12 Condition: good 23:12 Discharge instructions given to patient, Instructed on discharge instructions, follow up and referral plans. Demonstrated understanding of instructions, follow-up care. 23:21 Patient left the ED. ea Signatures: Shanna Guzman ds1 Yousuf Miller MD MD rn Attema, Lee, RN RN la1 Brenda Elizondo RN RN ea Vicente, Ronaldo, RN RN rv
--- NOTE | 2019-04-13 23:08 | EDPHYS ---
Physician Documentation [facility] Name: Yasmin Walker Age: 23 yrs Sex: Female : 1995 Arrival Date: 04/13/2019 Time: 21:46 Bed 6 Private MD: ED Physician Yousuf Miller HPI: 04/13 22:08 This 23 yrs old Female presents to ER via Ambulatory with complaints of Chest rn Pain - 34 Wks Preg. 22:08 The patient or guardian reports chest pain that is located primarily in the substernal rn area. The pain does not radiate. Associated signs and symptoms: Pertinent positives: None. Pertinent negatives: abdominal pain, diaphoresis, dizziness, near syncope, palpitations, shortness of breath, syncope, vomiting. The chest pain is described as burning. Duration: The patient or guardian reports multiple episodes, that are intermittent. Modifying factors: The symptoms are alleviated by nothing. the symptoms are aggravated by eating. Severity of pain: At its worst the pain was mild in the emergency department the pain is unchanged. The patient has not experienced similar symptoms in the past. The patient has not recently seen a physician. Reports intermittent chest pain, began 2 days ago, reports assoc burping, worse after eating, no trauma, no cough, no sob, no hemoptysis, no abd pain. Reports just came from L\T\D and baby sam, thought was having contractions. . 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 - Social history:: Smoking status: Patient uses tobacco products, denies chronic smoking, but will smoke occasionally. - Ebola Screening: : No symptoms or risks identified at this time. - Family history:: not pertinent. - Hospitalizations: : No recent hospitalization is reported. ROS: 22:08 Constitutional: Negative for fever, chills, and weight loss, Eyes: Negative for injury, rn pain, redness, and discharge, Neck: Negative for injury, pain, and swelling, Cardiovascular: Negative for palpitations, and edema, Respiratory: Negative for shortness of breath, cough, wheezing Abdomen/GI: Negative for abdominal pain, nausea, vomiting, diarrhea, and constipation, MS/Extremity: Negative for injury and deformity, Skin: Negative for injury, rash, and discoloration, Neuro: Negative for headache, weakness, numbness, tingling, and seizure. Exam: 22:08 Constitutional: This is a well developed, well nourished patient who is awake, alert, rn and in no acute distress. Ambulatory to room without difficulty or assistance. Head/Face: Normocephalic, atraumatic. Eyes: Pupils equal round and reactive to light, extra-ocular motions intact. Lids and lashes normal. Conjunctiva and sclera are non-icteric and not injected. Cornea within normal limits. Periorbital areas with no swelling, redness, or edema. ENT: MMM Neck: Trachea midline, no thyromegaly or masses palpated, and no cervical lymphadenopathy. Supple, full range of motion without nuchal rigidity, or vertebral point tenderness. No Meningismus. Cardiovascular: Regular rate and rhythm with a normal S1 and S2. No gallops, murmurs, or rubs. No JVD. No pulse deficits. Respiratory: Lungs have equal breath sounds bilaterally, clear to auscultation. No increased work of breathing, no retractions or nasal flaring. Abdomen/GI: soft, non-tender MS/ Extremity: Pulses equal, no cyanosis. Neurovascular intact. Full, normal range of motion. Equal circumference. Neuro: Awake and alert, GCS 15, oriented to person, place, time, and situation. Cranial nerves II-XII grossly intact. Motor strength 5/5 in all extremities. Sensory grossly intact. Cerebellar exam normal. Normal gait. Vital Signs: 21:50 BP 114 / 74; Pulse 85; Resp 16; Temp 98.0; Pulse Ox 100% on R/A; Weight 68.04 kg; la1 Height 5 ft. 3 in. (160.02 cm); 23:09 BP 103 / 69; Pulse 97; Resp 16; Temp 98; Pulse Ox 98% ; rv 23:11 BP 103 / 69; Pulse 85; Resp 18; Pulse Ox 98% on R/A; ea 21:50 Body Mass Index 26.57 (68.04 kg, 160.02 cm) la1 MDM: 22:02 Patient medically screened. rn 23:03 Differential diagnosis: chest wall pain, esophagitis, gastritis, gastroesophageal rn reflux disease (GERD), pleurisy. Data reviewed: vital signs, nurses notes, EKG, and as a result, I will discharge patient. Counseling: I had a detailed discussion with the patient and/or guardian regarding: the historical points, exam findings, and any diagnostic results supporting the discharge/admit diagnosis, the need for outpatient follow up, to return to the emergency department if symptoms worsen or persist or if there are any questions or concerns that arise at home. Special discussion: I discussed with the patient/guardian in detail that at this point there is no indication for admission to the hospital. It is understood, however, that if the symptoms persist or worsen the patient needs to return immediately for re-evaluation. ED course: Patient with symptoms that radiate to chest, is in late , worse after eating, normal vitals. original ecg showed sinus tachycardia but had just ambulated to room and very , no ischemia, pulse now 85, and no oxygen requirement. . EC:13 Rate is 76 beats/min. Rhythm is regular. QRS [place] is Normal. OR interval is normal. QRS rn interval is normal. QT interval is normal. No Q waves. T waves are Normal. No ST changes noted. Clinical impression: Normal ECG. Interpreted by me. Reviewed by me. Administered Medications: No medications were administered Disposition: 04/13/19 23:05 Discharged to Home. Impression: Chest pain, unspecified, Gastro-esophageal reflux disease. - Condition is Stable. - Discharge Instructions: Nonspecific Chest Pain, Gastroesophageal Reflux Disease, Adult. - Medication Reconciliation Form, Thank You Letter, Antibiotic Education, Prescription Opioid Use form. - Follow up: Private Physician; When: As needed; Reason: Recheck today's complaints, Re-evaluation by your physician. - Problem is new. - Symptoms are unchanged. Signatures: Yousuf Miller MD MD rn Attema, Lee RN TYRESE laBrenda Johnson RN RN ea Corrections: (The following items were deleted from the chart) 23:21 23:05 04/13/2019 23:05 Discharged to Home. Impression: Chest pain, unspecified; ea Gastro-esophageal reflux disease. Condition is Stable. Forms are Medication Reconciliation Form, Thank You Letter, Antibiotic Education, Prescription Opioid Use. Follow up: Private Physician; When: As needed; Reason: Recheck today's complaints, Re-evaluation by your physician. Problem is new. Symptoms are unchanged. rn
[2019-04-13 23:31] VITALS: BP 103/69; TEMP 98; O2SAT 98
--- NOTE | 2019-04-15 08:39 | EKG ---
Test Date: 2019-04-13 Test Time: 23:11:22 Clinical Geneticist: PALMER MEASUREMENT RESULTS: Intervals: Rate: 76 IL: 134 QRSD: 80 QT: 366 QTc: 411 [place]: P: 28 IL: 134 QRS: 50 T: 29 INTERPRETIVE STATEMENTS: Normal sinus rhythm Normal ECG Compared to ECG 04/13/2019 21:59:19 Sinus tachycardia no longer present T-wave abnormality no longer present Electronically Signed On 04-15-19 08:36:25 CDT by Kenneth Castaneda
--- NOTE | 2019-04-15 08:39 | EKG ---
Test Date: 2019-04-13 Test Time: 21:59:19 Classroom Paraprofessional: AER MEASUREMENT RESULTS: Intervals: Rate: 107 [place]: 120 QRSD: 80 QT: 332 QTc: 443 [place]: P: 24 [place]: 120 QRS: 55 T: -3 INTERPRETIVE STATEMENTS: Sinus tachycardia Nonspecific T wave abnormality Abnormal ECG No previous ECG available for comparison Electronically Signed On 04-15-19 08:36:27 CDT by Kenneth Castaneda
== END 2019-04-13 23:21 | disposition home or self-care (01) ==
LOC: ER 21:44
DX: O26.893 Other specified pregnancy related conditions, third trimester (principal); R07.9 Chest pain, unspecified; K21.9 Gastro-esophageal reflux disease without esophagitis; Z72.0 Tobacco use
CPT/HCPCS: 93005; 99284

== ENCOUNTER 2019-05-11 13:08 | Inpatient (IN) | payer OTHER ==
[2019-05-11] MEDS ORDERED: LIDOCAINE 1% MPF 30 ML VIAL ONE (13:54)
[2019-05-11] MEDS ORDERED: Ringers Lactate 1,000 ML IV ONE (13:54)
[2019-05-11] MEDS ORDERED: METHYLERGONOVINE 0.2MG/ML AMP IM ONE (13:55)
[2019-05-11] MEDS ORDERED: CARBOPROST TROME 250 MCG/ML IM ONE (13:55)
[2019-05-11] MEDS ORDERED: OXYTOCIN/LR 20 UNIT/1,000 ML BAG IV ONE (13:55)
[2019-05-11] MEDS ORDERED: METHYLERGONOVINE 0.2MG/ML AMP IM PRN ×2 (14:21→16:21)
[2019-05-11] MEDS ORDERED: Ringers Lactate 1,000 ML IV PRN (14:21)
[2019-05-11] MEDS ORDERED: CARBOPROST TROME 250 MCG/ML IM PRN ×2 (14:21→16:21)
[2019-05-11] MEDS ORDERED: PENICILLIN G POT 5 MU/100 ML VIAL IV ONE (14:21)
[2019-05-11 15:00] LABS: Absolute Lymphocytes (CBC) 1.5 K/uL (0.7-4.9); Basophils % 0.3 % (0-1.3); Hematocrit 28.8 % (36.0-45.0); Lymphocytes % 13.2 % (15.3-44.8); MPV 7.6 fL (7.6-11.3); RBC Red Blood Cell Count 3.27 M/uL (3.86-4.86)
[2019-05-11] MEDS ORDERED: Ringers Lactate 1,000 ML IV SCH (15:00)
[2019-05-11 15:29] VITALS: BMI 26.5
[2019-05-11] MEDS ORDERED: Tdap (Diph,Pertuss(Acell),Tet Vac) 0.5 ML SYR IMVAC ONE (16:21)
[2019-05-11] MEDS ORDERED: MEASLES,MUMPS,RUBELLA VAC 0.5ML SQVAC ONE (16:21)
[2019-05-11] MEDS ORDERED: METHYLERGONOVINE 0.2 MG TAB PO PRN (16:21)
[2019-05-11] MEDS ORDERED: ACETAMINOPHEN 500 MG TAB PO PRN (16:21)
--- NOTE | 2019-05-11 16:24 | P.BOP ---
Preoperative diagnosis: , little or no care Postoperative diagnosis: Term IUP delivered Primary procedure: SCVD Estimated blood loss: less than 200ml Complications: None Transferred to: Other (274) Condition: Good
[2019-05-11] MEDS: IBUPROFEN 200 MG TAB PO PRN (16:42)
[2019-05-11] MEDS ORDERED: OXYTOCIN/LR 20 UNIT/1,000 ML BAG IV SCH (17:00)
[2019-05-11] MEDS ORDERED: INFLUENZA VACCINE (for 3y+) 0.5 ML DOSE IMVAC ONE (17:00)
[2019-05-11 17:54] LABS: Barbiturates NEGATIVE (NEGATIVE); Benzodiazepines POSITIVE (NEGATIVE); Cocaine POSITIVE (NEGATIVE); METHAMPHETAM NEGATIVE (NEGATIVE); Methadone NEGATIVE (NEGATIVE); Opiates NEGATIVE (NEGATIVE); Phencyclidine NEGATIVE (NEGATIVE); THC Cannibis NEGATIVE (NEGATIVE)
[2019-05-12] MEDS: IBUPROFEN 200 MG TAB PO PRN ×2 (05:09→18:24)
--- NOTE | 2019-05-12 08:29 | P.PN ---
Date of Service: 05/12/19 S- No complaint but cramping, bleeding okay O-Afeb, vs stable A-satisfactory P-+ urine drug screen, will call CPS. Yasmin's mother said they had been involved with her last too. Discussed Depo Provera, and her need to sign permit for tubal through [facility] clinic immedietly so BTL can be performed 4- 6 wks pp.
[2019-05-12] MEDS ORDERED: MEDROXYPROGEST ACET 150 MG/ML IM SCH (09:00)
[2019-05-12 21:16] LABS: RPR (Rapid Plasma Reagin) NON-REACT (NON-REACT)
[2019-05-13] MEDS: IBUPROFEN 200 MG TAB PO PRN (07:42)
[2019-05-13 08:16] VITALS: BP 126/72; TEMP 98.9
--- NOTE | 2019-05-14 09:05 | DS ---
Date of Discharge: 05/13/2019 Final Hospital Discharge Diagnoses: 38 week , delivered, iron deficiency anemia. Complications: Positive urine drug screen. Procedures: Spontaneous controlled vaginal delivery of viable female . Hospital Course: Patient is a 23-year-old female, 7, para 4-0-2-1, seen through [facility] for 1 visit, who presents at approximately 38 weeks gestation with spontaneous rupture of m embranes in early labor. She had a spontaneous controlled vaginal delivery of a 7+ pound . aster was dismissed on second day. She had a positive urine drug screen for cocaine and benzo diazepine. Because of this, [facility] was involved with care for the child. Lab work included an admissio n hemoglobin and hematocrit of 9.7 and 28.8, dismissal 27.9. She is Rh positive blood type, will be immunized with Tdap and rubella. She was also given an injection of Depo-Provera to provide form of contraception until she can either obtain an IUD or have a permanent sterilization procedure performe d which she desired. She was dismissed to be on and iron tablets in preparation for possibl e surgery. JUAN MIGUEL/CHAUNCEYL Voice ID: [id number] Report ID: [id number]
--- NOTE | 2019-05-14 09:35 | PREOPHP ---
Date of Admission: 05/11/2019 History Of Present Illness: Mrs. Walker is a 23-year-old single female, 7, para 4-0- 2-4, now at approximately 38 weeks' gestation by her history. She is followed through the [facility] intermittently although no visits in the last 2 months by her history. She presents with spontaneo us rupture of membranes and in labor, noted to be 5 cm dilated. Past Medical History: Four prior vaginal deliveries, 2 spontaneous ABs. No other hospitalizations, accidents, illnesses, injuries. Medications: She is on no medications on a regular basis, only on vitamins. Social History: She smokes cigarettes. She denies other drug use. Family History: Noncontributory. Review of Systems: She reports no recent cough, cold, fever, or chills. No recent nausea or vomiting. She denies any b reast lumps or breast knots. She denies any bowel or bladder issues or other complaints. She denies vaginal bleeding. Infant has been active. Physical Examination: General: Reveals lethargic female with multiple tattoos. Neck: Supple without adenopathy or thyromegaly. Lungs: Clear. Cardiac: Regular rate and rhythm without murmurs. Breasts: Not examined. Abdomen: Estimated weight approximately 6 pounds. Pelvic: As above. Extremities: No cyanosis, clubbing, with only trace edema. Impression: Thirty-eight week by history, spontaneous rupture of membranes, active labor, limited care with suspicious for drug use. Plan: We will do admit lab work, try to get copies of available records. We will do urine drug scre en. Of note is that Mrs. Walker does not care for any of her kids. Her mother cares for the kids and older sisters going to adopt this one. Because of high risk for positive beta strep with unknown bet a strep, we will treat with penicillin 1 dose initially. She does not have other risk factors, but I am very suspicious that she be positive. JUAN MIGUEL/YASEMIN Voice ID: [id number]
--- NOTE | 2019-05-14 09:35 | OP ---
Surgeon: Huseyin Duke MD Ms. Walker is a 23-year-old single female, 7, para 4-0-0-2-4. Questionable gestation al age between 36 and 38 weeks gestation who is seen through [facility] for 1 visit. She presents w ith complaints of rupture of membranes and labor. She is noted to be approximately 4 cm on admission after first stage of labor of 3 hours and 35 minutes, second stage of labor 5 minutes. She delivere d by spontaneous controlled vaginal delivery 7 pound 1 ounce female , vertex OA presentation. After delayed cord clamping, cord was clamped, cut, and the was placed in a warmer. Cord bloo d was obtained. The placenta was spontaneously expelled and appeared to be intact. She suffered no laceration. She was given 1 dose of penicillin because of a known strep status and high risk for str ep carriage. Estimated total blood loss was less than 200 mL. Patient received no analgesics during her labor course because of somewhat sedated appearance and FHTs that were initially very flat. JUAN MIGUEL/YASEMIN Voice ID: [id number] Report ID: [id number]
[2019-05-14 22:10] LABS: HBsAG Nonreactive (Nonreactive)
== END 2019-05-13 12:00 | disposition home or self-care (01) | DRG 806 ==
LOC: L&D 13:08 → 2ND-WC 13:40
PROVIDERS: ADMIT Specialist; ATTEND Specialist
PROC: 10E0XZZ Delivery of Products of Conception, External Approach (ICD-10-PCS; principal; 2019-05-11)
DX: O99.02 Anemia complicating childbirth (principal); O99.324 Drug use complicating childbirth; Z37.0 Single live birth; D50.9 Iron deficiency anemia, unspecified; F14.90 Cocaine use, unspecified, uncomplicated; F15.90 Other stimulant use, unspecified, uncomplicated; Z3A.38 38 weeks gestation of pregnancy
CPT/HCPCS: 36415; 80307; 85014; 85025; 86592; 86901; 87340; G0433; J1050; J2210; J2590

== ENCOUNTER 2019-06-02 16:40 | Emergency (ER) | payer OTHER ==
[2019-06-02] MEDS ORDERED: HYDROCODONE/APAP 7.5/325 MG TAB ONE (17:02)
[2019-06-02] MEDS ORDERED: KETOROLAC 30 MG/ML INJ ONE (17:03)
--- NOTE | 2019-06-02 17:21 | RAD REPORT ---
EXAM DESCRIPTION: RADSacrum And Godqao4006/02/2019 5:13 pm CLINICAL HISTORY: Back pain status post fall FINDINGS: No fracture is seen
--- NOTE | 2019-06-02 17:36 | EDPHYS ---
Physician Documentation [facility] Name: Yasmin Walker Age: 23 yrs Sex: Female : 1995 Arrival Date: 06/02/2019 Time: 16:42 Bed 20 Private MD: ED Physician Rory Finch HPI: 06/02 16:59 This 23 yrs old Female presents to ER via Ambulatory with complaints of Back jr8 Pain. 16:59 The patient presents with pain that is acute. The symptoms are located in the coccyx jr8 area. Onset: The symptoms/episode began/occurred 2 day(s) ago. The pain does not radiate. Associated signs and symptoms: Pertinent negatives: dysuria, fever, incontinence, numbness, tingling, urinary retention. Modifying factors: The patient symptoms are alleviated by nothing, the patient symptoms are aggravated by bending. Severity of symptoms: At their worst the symptoms were mild, in the emergency department the symptoms are unchanged. Pt reports fall on to coccyx area 3 days ago, no other reported injuries, pt ambulatory . Historical: - Allergies: 16:47 No Known Allergies; hb - Home Meds: 16:47 None [Active]; hb - PMHx: 16:47 Asthma; hb - PSHx: 16:47 None; hb - Immunization history:: Adult Immunizations up to date. - Social history:: Smoking status: Patient uses tobacco products, denies chronic smoking, but will smoke occasionally. - Ebola Screening: : No symptoms or risks identified at this time. ROS: 16:59 Constitutional: Negative for fever, chills, and weight loss, Eyes: Negative for injury, jr8 pain, redness, and discharge, ENT: Negative for injury, pain, and discharge, Neck: Negative for injury, pain, and swelling, Cardiovascular: Negative for chest pain, palpitations, and edema, Respiratory: Negative for shortness of breath, cough, wheezing, and pleuritic chest pain, Abdomen/GI: Negative for abdominal pain, nausea, vomiting, diarrhea, and constipation, MS/Extremity: Negative for injury and deformity, Neuro: Negative for headache, weakness, numbness, tingling, and seizure. 16:59 Abdomen/GI: 16:59 Back: Positive for pain at rest, pain with movement, of the sacrum. Exam: 17:02 Constitutional: This is a well developed, well nourished patient who is awake, alert, jr8 and in no acute distress. Head/Face: Normocephalic, atraumatic. Eyes: Pupils equal round and reactive to light, extra-ocular motions intact. Lids and lashes normal. Conjunctiva and sclera are non-icteric and not injected. Cornea within normal limits. Periorbital areas with no swelling, redness, or edema. ENT: Nares patent. No nasal discharge, no septal abnormalities noted. Tympanic membranes are normal and external auditory canals are clear. Oropharynx with no redness, swelling, or masses, exudates, or evidence of obstruction, uvula midline. Mucous membranes moist. Neck: Trachea midline, no thyromegaly or masses palpated, and no cervical lymphadenopathy. Supple, full range of motion without nuchal rigidity, or vertebral point tenderness. No Meningismus. Chest/axilla: Normal chest wall appearance and motion. Nontender with no deformity. No lesions are appreciated. Cardiovascular: Regular rate and rhythm with a normal S1 and S2. No gallops, murmurs, or rubs. Normal PMI, no JVD. No pulse deficits. Respiratory: Lungs have equal breath sounds bilaterally, clear to auscultation and percussion. No rales, rhonchi or wheezes noted. No increased work of breathing, no retractions or nasal flaring. Abdomen/GI: Soft, non-tender, with normal bowel sounds. No distension or tympany. No guarding or rebound. No evidence of tenderness throughout. 17:02 Back: ROM is painful, with flexion, CVA tenderness, is absent, muscle spasm, is not present, Straight leg raises: pain bilaterally. 17:35 Neuro: Memory: is normal, Cranial nerves: CN II- XII are normal as tested, Cerebellar jr8 function: is grossly normal, Motor: is normal, Sensation: is normal, Gait: is steady. Vital Signs: 16:47 BP 126 / 94; Pulse 108; Resp 16; Temp 97.8; Pulse Ox 100% on R/A; Weight 63.5 kg; hb Height 5 ft. 3 in. (160.02 cm); Pain 7/10; 17:49 BP 127 / 87; Pulse 84; Resp 16; Pulse Ox 99% on R/A; Pain 6/10; em 16:47 Body Mass Index 24.80 (63.50 kg, 160.02 cm) hb MDM: 16:49 Patient medically screened. jr8 17:33 Data reviewed: vital signs, nurses notes, radiologic studies, and as a result, I will jr8 discharge patient. Data interpreted: Pulse oximetry: on room air is 100 %. Interpretation: normal. Counseling: I had a detailed discussion with the patient and/or guardian regarding: the historical points, exam findings, and any diagnostic results supporting the discharge/admit diagnosis, radiology results, the need for outpatient follow up, a family practitioner. ED course: Discussed after care for musculoskeletal pain including donut pillow and OTC meds. 06/02 16:53 Order name: Sacrum And Coccyx XRAY; Complete Time: 17:30 jr8 Administered Medications: 17:26 Drug: TORadol - Ketorolac 15 mg Route: IM; Site: right deltoid; em 17:50 Follow up: Response: No adverse reaction; Pain is decreased em 17:27 Drug: [place] (7.5 mg-325 mg) 1 tabs Route: PO; em 17:50 Follow up: Response: No adverse reaction; Nausea is decreased; RASS: Alert and Calm (0) em Disposition: 06/02/19 17:35 Discharged to Home. Impression: Low back pain. - Condition is Stable. - Discharge Instructions: Back Pain, Adult, Musculoskeletal Pain, Back Injury Prevention, [id number], Heat Therapy. - Medication Reconciliation Form, Thank You Letter form. - Follow up: Private Physician; When: 2 - 3 days; Reason: Recheck today's complaints, Continuance of care, Re-evaluation by your physician. Signatures: Dispatcher [employer] EDSebas Tang, OIL PROCESS STILLMAN OIL PROCESS STILLMAN em Steffen Nickerson PA PA jr8 Zoila Angelo, RN RN hb Corrections: (The following items were deleted from the chart) 17:51 17:35 06/02/2019 17:35 Discharged to Home. Impression: Low back pain. Condition is em Stable. Forms are Medication Reconciliation Form, Thank You Letter, Antibiotic Education, Prescription Opioid Use. Follow up: Private Physician; When: 2 - 3 days; Reason: Recheck today's complaints, Continuance of care, Re-evaluation by your physician. jr8
--- NOTE | 2019-06-02 17:36 | ER ---
Nurse's Notes [facility] Name: Yasmin Walker Age: 23 yrs Sex: Female : 1995 Arrival Date: 06/02/2019 Time: 16:42 Bed 20 Private MD: Diagnosis: Low back pain Presentation: 06/02 16:45 Presenting complaint: Tailbone pain 8/10 after mechanical fall from standing 2 days hb ago. Pt reports she slipped while going down approx 3 stairs and landed on buttocks. Transition of care: patient was not received from another setting of care. Onset of symptoms was May 31, 2019. Risk Assessment: Do you want to hurt yourself or someone else? Patient reports no desire to harm self or others. Initial Sepsis Screen: Does the patient meet any 2 criteria? No. Patient's initial sepsis screen is negative. Does the patient have a suspected source of infection? No. Patient's initial sepsis screen is negative. Care prior to arrival: None. 16:45 Method Of Arrival: Ambulatory hb 16:45 Acuity: RICO 4 hb Historical: - Allergies: 16:47 No Known Allergies; hb - Home Meds: 16:47 None [Active]; hb - PMHx: 16:47 Asthma; hb - PSHx: 16:47 None; hb - Immunization history:: Adult Immunizations up to date. - Social history:: Smoking status: Patient uses tobacco products, denies chronic smoking, but will smoke occasionally. - Ebola Screening: : No symptoms or risks identified at this time. Screenin:48 Abuse screen: Denies threats or abuse. Nutritional screening: No deficits noted. em Tuberculosis screening: No symptoms or risk factors identified. Fall Risk None identified. Assessment: 16:50 General: Appears in no apparent distress. uncomfortable, Behavior is calm, cooperative, em Denies fever. Pain: Complains of pain in sacrum Pain currently is 8 out of 10 on a pain scale. Neuro: Level of Consciousness is awake, alert, obeys commands, Oriented to person, place, time, situation, Appropriate for age Denies paresthesias numbness. Cardiovascular: Capillary refill < 3 seconds Patient's skin is warm and dry. Respiratory: Airway is patent Respiratory effort is even, unlabored, Respiratory pattern is regular, symmetrical. GI: Abdomen is flat, Patient currently denies nausea, vomiting. : Denies burning with urination. Derm: Skin is intact, is healthy with good turgor, Skin is pink, warm \T\ dry. Musculoskeletal: Capillary refill < 3 seconds, Range of motion: intact in all extremities. 17:01 Reassessment: wheeled to CT via wheelchair. em Vital Signs: 16:47 BP 126 / 94; Pulse 108; Resp 16; Temp 97.8; Pulse Ox 100% on R/A; Weight 63.5 kg; hb Height 5 ft. 3 in. (160.02 cm); Pain 7/10; 17:49 BP 127 / 87; Pulse 84; Resp 16; Pulse Ox 99% on R/A; Pain 6/10; em 16:47 Body Mass Index 24.80 (63.50 kg, 160.02 cm) hb ED Course: 16:42 Patient arrived in ED. as 16:43 Steffen Nickerson PA is PHCP. jr8 16:43 Rory Finch MD is Attending Physician. jr8 16:47 Triage completed. hb 16:47 Arm band placed on. hb 16:48 Sebas Mosquera LVN is Primary Nurse. em 16:48 Patient has correct armband on for positive identification. Bed in low position. Call em light in reach. 17:12 Sacrum And Coccyx XRAY In Process Unspecified. EDMS 17:49 No provider procedures requiring assistance completed. Patient did not have IV access em during this emergency room visit. Administered Medications: 17:26 Drug: TORadol - Ketorolac 15 mg Route: IM; Site: right deltoid; em 17:50 Follow up: Response: No adverse reaction; Pain is decreased em 17:27 Drug: [place] (7.5 mg-325 mg) 1 tabs Route: PO; em 17:50 Follow up: Response: No adverse reaction; Nausea is decreased; RASS: Alert and Calm (0) em Outcome: 17:35 Discharge ordered by . jr8 17:49 Discharged to home ambulatory. em 17:49 Condition: good 17:49 Discharge instructions given to patient, Instructed on discharge instructions, follow up and referral plans. Demonstrated understanding of instructions, follow-up care. 17:51 Patient left the ED. em Signatures: Dispatcher [employer] EDMS Sebas Mosquera LVN LVN Yamini Fuentes Josh, VALENTINA PA jr8 Zoila Angelo, RN RN hb
[2019-06-02 17:56] VITALS: TEMP 97.8
[2019-06-02 17:58] VITALS: BP 127/87; O2SAT 99
== END 2019-06-02 17:51 | disposition home or self-care (01) ==
LOC: ER 16:40
DX: M54.5 Low back pain (principal); F17.210 Nicotine dependence, cigarettes, uncomplicated
CPT/HCPCS: 72220; 96372; 99283

== ENCOUNTER 2019-06-11 09:45 | Emergency (ER) | payer OTHER ==
[2019-06-11] MEDS ORDERED: KETOROLAC 30 MG/ML INJ ONE (10:36)
[2019-06-11] MEDS ORDERED: ONDANSETRON 4 MG/2 ML VIAL ONE (10:36)
[2019-06-11] MEDS ORDERED: NA CHLORIDE 0.9% 1,000 ML ONE (10:37)
--- NOTE | 2019-06-11 11:11 | RAD REPORT ---
EXAM DESCRIPTION: US - Abdomen Exam Limited - 06/11/2019 10:54 am CLINICAL HISTORY: RUQ pain;Epigastric pain COMPARISON: Abdomen Pelvis W Contrast dated 08/09/2017 FINDINGS: No gallstones, sludge or other abnormalities within the gallbladder lumen. There is no wal l thickening or pericholecystic fluid. No common duct stone or biliary tree dilatation identified. IMPRESSION: Normal gallbladder and biliary tree ultrasound.
[2019-06-11 11:12] LABS: Absolute Lymphocytes (CBC) 1.3 K/uL (0.7-4.9); Basophils % 0.4 % (0-1.3); Hematocrit 34.2 % (36.0-45.0); Lymphocytes % 11.6 % (15.3-44.8); MPV 6.9 fL (7.6-11.3); RBC Red Blood Cell Count 3.86 M/uL (3.86-4.86)
[2019-06-11 11:29] LABS: ALT/SGPT 57 U/L (12-78); AST/SGOT 99 U/L (15-37); Albumin 3.7 g/dL (3.4-5.0); Alkaline Phosphatase 115 U/L (45-117); BUN Blood Urea Nitrogen 12 mg/dL (7-18); Bicarbonate 27 mmol/L (21-32); Bilirubin Direct 0.1 mg/dL (0-0.2); Bilirubin Total 0.3 mg/dL (0.2-1.0); Glucose Level 90 mg/dL (74-106); Lipase 194 U/L (73-393); Protein, Total 7.6 g/dL (6.4-8.2); Sodium Level 145 mmol/L (136-145)
[2019-06-11 13:38] LABS: Urine Blood 3+ (NEG); Urine Glucose NEGATIVE (NEG); Urine Protein 1+ (NEG); Urine Specific Gravity >1.030 (1.005-1.030)
--- NOTE | 2019-06-11 14:05 | RAD REPORT ---
EXAM DESCRIPTION: CT - Abdomen Pelvis W Contrast - 06/11/2019 1:53 pm CLINICAL HISTORY: ABD PAIN COMPARISON: Gallbladder ultrasound same date, CT study July 2017 TECHNIQUE: Biphasic, helical CT imaging of the abdomen and pelvis was performed following 100 ml non -ionic IV contrast. No oral contrast given. All CT scans are performed using dose optimization technique as appropriate and may include automated exposure control or mA/KV adjustment according to patient size. FINDINGS: No suspicious findings in the lung bases. The liver, spleen, and pancreas show no suspicious findings. Gallbladder size is normal. No gallstone s seen. Gallstones can be occult on CT imaging. No stones were seen on the earlier gallbladder ultras ound. Gallbladder wall appears slightly thickened and edematous on CT imaging without a correlate on the ultrasound. No biliary tree dilatation. Symmetric renal function is seen with no hydronephrosis or suspicious renal mass. No pyelonephritis o r acute parenchymal process. No bladder abnormalities. No adrenal abnormalities. Uterus and ovaries s how no suspicious findings. Prominent adnexal veins are present. No gonadal vein thrombus. No dilated bowel loops or bowel wall thickening. No free air, free fluid or inflammatory stranding. No hernia, mass or bulky lymphadenopathy. No suspicious bony findings. IMPRESSION: Gallbladder wall appears thickened and edematous on CT imaging but without a matching fi nding on the ultrasound study. No biliary tree dilatation. Correlation is needed with findings graft mobile to gallbladder or biliary disease. The remainder the study, as detailed above, is without significant finding.
--- NOTE | 2019-06-11 15:03 | ER ---
Nurse's Notes [facility] Name: Yasmin Walker Age: 23 yrs Sex: Female : 1995 Arrival Date: 06/11/2019 Time: 09:46 Bed 17 Private MD: Diagnosis: Unspecified abdominal pain Presentation: 06/11 10:11 Presenting complaint: Patient states: She woke up with pain on both sides that is worse aj1 when she moves or talks. Denies recent injury or fall. Patient also reports nausea. Transition of care: patient was not received from another setting of care. Onset of symptoms was June 11, 2019. Risk Assessment: Do you want to hurt yourself or someone else? Patient reports no desire to harm self or others. Initial Sepsis Screen: Does the patient meet any 2 criteria? No. Patient's initial sepsis screen is negative. Does the patient have a suspected source of infection? No. Patient's initial sepsis screen is negative. Care prior to arrival: None. 10:11 Method Of Arrival: Ambulatory aj1 10:11 Acuity: RICO 3 aj1 Triage Assessment: 10:12 General: Appears uncomfortable, Behavior is calm, cooperative, appropriate for age. aj1 Pain: Complains of pain in diaphragm, left lateral anterior chest and right lateral anterior chest Pain does not radiate. Pain currently is 10 out of 10 on a pain scale. Quality of pain is described as sharp, Aggravated by repositioning. 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 - Social history:: Smoking status: Patient/guardian denies using tobacco. - Ebola Screening: : Patient denies travel to an Ebola-affected area in the 21 days before illness onset. Screenin:15 Abuse screen: Denies threats or abuse. Denies injuries from another. Nutritional aj1 screening: No deficits noted. Tuberculosis screening: No symptoms or risk factors identified. 16:43 Fall Risk None identified. aj1 Assessment: 10:15 General: Appears uncomfortable, Behavior is calm, cooperative, appropriate for age. aj1 Pain: Complains of pain in right lateral anterior chest and left lateral anterior chest Pain currently is 10 out of 10 on a pain scale. Neuro: Level of Consciousness is awake, alert, obeys commands, Oriented to person, place, time, situation. Cardiovascular: Patient's skin is warm and dry. Respiratory: Airway is patent Respiratory effort is even, unlabored, Respiratory pattern is regular, symmetrical. GI: Abdomen is non-distended, Bowel sounds present X 4 quads. Abd is soft and non tender X 4 quads. Reports nausea, vomiting. : No signs and/or symptoms were reported regarding the genitourinary system. EENT: No signs and/or symptoms were reported regarding the EENT system. Derm: No signs and/or symptoms reported regarding the dermatologic system. Skin is pink, warm \T\ dry. normal. Musculoskeletal: No signs and/or symptoms reported regarding the musculoskeletal system. Circulation, motion, and sensation intact. 10:15 Reassessment: Patient appears in no apparent distress at this time. No changes from aj1 previously documented assessment. Patient and/or family updated on plan of care and expected duration. Pain level reassessed. Patient is alert, oriented x 3, equal unlabored respirations, skin warm/dry/pink. 11:15 Reassessment: Patient appears in no apparent distress at this time. No changes from aj1 previously documented assessment. Patient and/or family updated on plan of care and expected duration. Pain level reassessed. Patient is alert, oriented x 3, equal unlabored respirations, skin warm/dry/pink. 12:15 Reassessment: Patient and/or family updated on plan of care and expected duration. Pain aj1 level reassessed. General: Appears in no apparent distress. comfortable, Behavior is calm, cooperative, appropriate for age. Neuro: Level of Consciousness is awake, alert, obeys commands, Oriented to person, place, time, situation. Cardiovascular: Patient's skin is warm and dry. Respiratory: Airway is patent Respiratory effort is even, unlabored, Respiratory pattern is regular, symmetrical. GI: Abdomen is flat, non-distended, Bowel sounds present X 4 quads. Derm: No signs and/or symptoms reported regarding the dermatologic system. Skin is pink, warm \T\ dry. normal. Musculoskeletal: No signs and/or symptoms reported regarding the musculoskeletal system. Circulation, motion, and sensation intact. 13:06 Reassessment: Patient appears in no apparent distress at this time. No changes from aj1 previously documented assessment. Patient and/or family updated on plan of care and expected duration. Pain level reassessed. Patient is alert, oriented x 3, equal unlabored respirations, skin warm/dry/pink. 14:05 Reassessment: Patient appears in no apparent distress at this time. No changes from aj1 previously documented assessment. Patient and/or family updated on plan of care and expected duration. Pain level reassessed. Patient is alert, oriented x 3, equal unlabored respirations, skin warm/dry/pink. 15:05 Reassessment: Patient and/or family updated on plan of care and expected duration. Pain aj1 level reassessed. General: Appears in no apparent distress. comfortable, Behavior is calm, cooperative, appropriate for age. Neuro: Level of Consciousness is awake, alert, obeys commands, Oriented to person, place, time, situation. Cardiovascular: Patient's skin is warm and dry. Respiratory: Airway is patent Respiratory effort is even, unlabored, Respiratory pattern is regular, symmetrical. GI: Abdomen is flat, non-distended. Derm: No signs and/or symptoms reported regarding the dermatologic system. Skin is pink, warm \T\ dry. normal. Musculoskeletal: No signs and/or symptoms reported regarding the musculoskeletal system. Circulation, motion, and sensation intact. 16:05 Reassessment: Patient appears in no apparent distress at this time. No changes from aj1 previously documented assessment. Patient and/or family updated on plan of care and expected duration. Pain level reassessed. Patient is alert, oriented x 3, equal unlabored respirations, skin warm/dry/pink. Vital Signs: 10:12 BP 116 / 91; Pulse 73; Resp 16; Temp 98.4(TE); Pulse Ox 100% on R/A; Weight 63.5 kg aj1 (R); Height 5 ft. 3 in. (160.02 cm) (R); Pain 10/10; 11:04 BP 119 / 82; Pulse 77; Resp 16; Temp 98.7(TE); Pulse Ox 100% ; mh5 13:00 BP 109 / 74; Pulse 78; Resp 16; Temp 97.9(TE); Pulse Ox 100% on R/A; mh5 14:50 BP 114 / 73; Pulse 54; Resp 16; Temp 97.7(TE); Pulse Ox 100% on R/A; mh5 15:45 BP 112 / 75; Pulse 62; Resp 16; Pulse Ox 97% on R/A; aj1 16:41 BP 116 / 72; Pulse 78; Resp 18; Pulse Ox 97% on R/A; aj1 10:12 Body Mass Index 24.80 (63.50 kg, 160.02 cm) aj1 ED Course: 09:46 Patient arrived in ED. as 10:06 Ciera Pearce, TYRESE is Primary Nurse. aj1 10:09 Carlos Do NP is PHCP. pm1 10:09 Jono Gary MD is Attending Physician. pm1 10:12 Triage completed. aj1 10:12 Arm band placed on Patient placed in an exam room. aj1 10:54 US Abdomen Limited In Process Unspecified. EDMS 11:02 Initial lab(s) drawn, by me, by EMS personnel. Inserted saline lock: 22 gauge in right [facility] antecubital area, using aseptic technique. 11:03 Patient has correct armband on for positive identification. Bed in low position. Call [facility] light in reach. Side rails up X 1. Warm blanket given. Pulse ox on. NIBP on. 11:03 Basic Metabolic Panel Sent. 5 11:03 CBC with Diff Sent. 5 11:03 Creatinine for Radiology Sent. 5 11:03 Hepatic Function Sent. 5 11:03 Lipase Sent. 5 13:11 Radiology exam delayed due to test not completed at this time. 13:55 CT Abd/Pelvis - IV Contrast Only In Process Unspecified. EDMS 15:03 Romie Weir MD is Referral Physician. pm1 16:42 No provider procedures requiring assistance completed. IV discontinued, intact, aj1 bleeding controlled, No redness/swelling at site. Pressure dressing applied. Administered Medications: 11:02 Drug: NS 0.9% 1000 ml Route: IV; Rate: 1000 ml; Site: right antecubital; aj1 11:03 Drug: TORadol - Ketorolac 15 mg Route: IVP; Site: right antecubital; aj1 11:03 Drug: Zofran 4 mg Route: IVP; Site: right antecubital; aj1 15:47 Drug: LevaQUIN 500 mg Route: PO; aj1 15:47 Drug: Flagyl 500 mg Volume: 100 ml; Route: IVPB; Rate: 200 ml/hr; Infused Over: 30 aj1 mins; Site: right antecubital; Outcome: 15:03 Discharge ordered by . pm1 16:43 Discharged to home ambulatory. aj1 16:43 Condition: good 16:43 Discharge instructions given to patient, Instructed on discharge instructions, follow up and referral plans. medication usage, Demonstrated understanding of instructions, follow-up care, medications, Prescriptions given X 3. 16:43 Patient left the ED. aj1 Signatures: Dispatcher [employer] EDMS Ciera Pearce RN RN aj1 Josseline Waite Amelia as Marinas, Patrick, NP TEACHER LEARNING DISABLED pm1 Neyda Monroe [facility] Corrections: (The following items were deleted from the chart) 14:57 14:50 Pulse 54bpm; Resp 16bpm; Pulse Ox 100% RA; Temp 97.7F Temporal; mh5 5
--- NOTE | 2019-06-11 15:04 | EDPHYS ---
Physician Documentation [facility] Name: Yasmin Walker Age: 23 yrs Sex: Female : 1995 Arrival Date: 06/11/2019 Time: 09:46 Bed 17 Private MD: ED Physician Jono Gary HPI: 06/11 10:24 This 23 yrs old Female presents to ER via Ambulatory with complaints of Rib pm1 Pain. 10:24 The patient presents with abdominal pain in the upper abdomen. Onset: The pm1 symptoms/episode began/occurred this morning. The symptoms do not radiate. Associated signs and symptoms: Pertinent positives: nausea and vomiting, Pertinent negatives: chest pain, constipation, diarrhea, dysuria, fever, shortness of breath. The symptoms are described as sharp, comes and goes. Modifying factors: The symptoms are alleviated by sitting up straight. the symptoms are aggravated by lying down. Severity of pain: in the emergency department the pain is unchanged. The patient has not experienced similar symptoms in the past. The patient has not recently seen a physician. 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 - Social history:: Smoking status: Patient/guardian denies using tobacco. - Ebola Screening: : Patient denies travel to an Ebola-affected area in the 21 days before illness onset. ROS: 10:24 Constitutional: Negative for fever, chills, and weight loss, Cardiovascular: Negative pm1 for chest pain, palpitations, and edema, Respiratory: Negative for shortness of breath, cough, wheezing, and pleuritic chest pain. 10:24 Back: Negative for injury and pain, : Negative for injury, bleeding, discharge, and swelling, MS/Extremity: Negative for injury and deformity, Skin: Negative for injury, rash, and discoloration, Neuro: Negative for headache, weakness, numbness, tingling, and seizure. 10:24 Abdomen/GI: Positive for abdominal pain, nausea and vomiting, Negative for diarrhea, constipation. 10:24 All other systems are negative. Exam: 10:24 Constitutional: This is a well developed, well nourished patient who is awake, alert, pm1 and in no acute distress. Head/Face: Normocephalic, atraumatic. Neck: Trachea midline, no thyromegaly or masses palpated, and no cervical lymphadenopathy. Supple, full range of motion without nuchal rigidity, or vertebral point tenderness. No Meningismus. Chest/axilla: Normal chest wall appearance and motion. Nontender with no deformity. No lesions are appreciated. Cardiovascular: Regular rate and rhythm with a normal S1 and S2. No gallops, murmurs, or rubs. Normal PMI, no JVD. No pulse deficits. Respiratory: Lungs have equal breath sounds bilaterally, clear to auscultation and percussion. No rales, rhonchi or wheezes noted. No increased work of breathing, no retractions or nasal flaring. 10:24 Back: No spinal tenderness. No costovertebral tenderness. Full range of motion. Skin: Warm, dry with normal turgor. Normal color with no rashes, no lesions, and no evidence of cellulitis. MS/ Extremity: Pulses equal, no cyanosis. Neurovascular intact. Full, normal range of motion. 10:24 Abdomen/GI: Inspection: abdomen appears normal, Bowel sounds: normal, Palpation: soft, moderate abdominal tenderness, in the epigastric area and right upper quadrant, mass, is not appreciated, rebound tenderness, is not appreciated. 10:24 Neuro: Orientation: is normal, Motor: is normal, moves all fours, Sensation: is normal, no obvious gross deficits. Vital Signs: 10:12 BP 116 / 91; Pulse 73; Resp 16; Temp 98.4(TE); Pulse Ox 100% on R/A; Weight 63.5 kg aj1 (R); Height 5 ft. 3 in. (160.02 cm) (R); Pain 10/10; 11:04 BP 119 / 82; Pulse 77; Resp 16; Temp 98.7(TE); Pulse Ox 100% ; mh5 13:00 BP 109 / 74; Pulse 78; Resp 16; Temp 97.9(TE); Pulse Ox 100% on R/A; mh5 14:50 BP 114 / 73; Pulse 54; Resp 16; Temp 97.7(TE); Pulse Ox 100% on R/A; 5 15:45 BP 112 / 75; Pulse 62; Resp 16; Pulse Ox 97% on R/A; aj1 16:41 BP 116 / 72; Pulse 78; Resp 18; Pulse Ox 97% on R/A; aj1 10:12 Body Mass Index 24.80 (63.50 kg, 160.02 cm) aj1 MDM: 10:10 Patient medically screened. pm1 10:27 Data reviewed: vital signs. Data interpreted: Pulse oximetry: on room air is 100 %. pm1 Interpretation: normal. 11:42 ED course: Patient refused additional pain medications offered. Toradol effective for pm1 pain. 14:33 Counseling: I had a detailed discussion with the patient and/or guardian regarding: the pm1 historical points, exam findings, and any diagnostic results supporting the discharge/admit diagnosis, lab results, radiology results, the need for further work-up and treatment in the hospital. 14:33 Refusal of service: The patient/guardian displays adequate decision making capability pm1 and despite a detailed discussion of alternatives, benefits, risks, and consequences refuses: Admission to the hospital for further work-up and treatment, Patient is not in pain at the moment and is supposed to start a new job today so she wants to go home. 06/11 10:23 Order name: Basic Metabolic Panel; Complete Time: 11:37 pm1 06/11 10:23 Order name: CBC with Diff; Complete Time: 11:14 pm1 06/11 10:23 Order name: Creatinine for Radiology; Complete Time: 11:37 pm1 06/11 10:23 Order name: Hepatic Function; Complete Time: 11:37 pm1 06/11 10:23 Order name: Lipase; Complete Time: 11:37 pm1 06/11 13:15 Order name: Urine Dipstick--Ancillary (enter results); Complete Time: 13:44 ss 06/11 10:23 Order name: US Abdomen Limited; Complete Time: 11:37 pm1 06/11 11:42 Order name: CT Abd/Pelvis - IV Contrast Only; Complete Time: 14:15 pm1 06/11 13:15 Order name: Urine --Ancillary (enter results); Complete Time: 13:44 ss 06/11 10:23 Order name: IV Saline Lock; Complete Time: 11:03 pm1 06/11 10:23 Order name: Labs collected and sent; Complete Time: 11:14 pm1 06/11 10:23 Order name: Urine Dipstick-Ancillary (obtain specimen); Complete Time: 15:31 pm1 06/11 10:23 Order name: Urine Test (obtain specimen); Complete Time: 15:31 pm1 06/11 10:23 Order name: NPO; Complete Time: 11:08 pm1 Administered Medications: 11:02 Drug: NS 0.9% 1000 ml Route: IV; Rate: 1000 ml; Site: right antecubital; aj1 11:03 Drug: TORadol - Ketorolac 15 mg Route: IVP; Site: right antecubital; aj1 11:03 Drug: Zofran 4 mg Route: IVP; Site: right antecubital; aj1 15:47 Drug: LevaQUIN 500 mg Route: PO; 15:47 Drug: Flagyl 500 mg Volume: 100 ml; Route: IVPB; Rate: 200 ml/hr; Infused Over: 30 aj1 mins; Site: right antecubital; Disposition: 06/12 07:00 Co-signature as Attending Physician, Jono Gary MD I agree with the assessment and albert plan of care. Disposition: 06/11/19 15:03 Discharged to Home. Impression: Unspecified abdominal pain. - Condition is Stable. - Discharge Instructions: Abdominal Pain, Adult. - Prescriptions for Bentyl 20 mg Oral Tablet - take 1 tablet by ORAL route every 6 hours As needed; 20 tablet. Flagyl 500 mg Oral Tablet - take 1 tablet by ORAL route every 8 hours for 10 days; 30 tablet. Levaquin 500 mg Oral Tablet - take 1 tablet by ORAL route once daily for 10 days; 10 tablet. Zofran 4 mg Oral Tablet - take 1 tablet by ORAL route every 12 hours As needed; 20 tablet. - Medication Reconciliation Form, Thank You Letter, Antibiotic Education, Prescription Opioid Use form. - Follow up: Emergency Department; When: As needed; Reason: Worsening of condition. Follow up: Romie Weir MD; When: 2 - 3 days; Reason: Recheck today's complaints, Continuance of care, Re-evaluation by your physician. - Problem is new. - Symptoms have improved. - Notes: Dr. Weir requested that you fill out new patient forms on [email or web address] Signatures: Dispatcher [employer] Ciera aHyes RN RN aj1 Jono Gary MD MD cha Marinas, Patrick, PHARMACY ASSISTANT PHARMACY ASSISTANT pm1 Corrections: (The following items were deleted from the chart) 06/11 16:43 15:03 06/11/2019 15:03 Discharged to Home. Impression: Unspecified abdominal pain. aj1 Condition is Stable. Forms are Medication Reconciliation Form, Thank You Letter, Antibiotic Education, Prescription Opioid Use. Follow up: Emergency Department; When: As needed; Reason: Worsening of condition. Follow up: Romie Weir; When: 2 - 3 days; Reason: Recheck today's complaints, Continuance of care, Re-evaluation by your physician. Problem is new. Symptoms have improved. pm1
[2019-06-11] MEDS ORDERED: METRONIDAZOLE 500mg IVPB 500 MG/100 ML BAG IV ONE (15:32)
[2019-06-11] MEDS ORDERED: levoFLOXacin 500 MG TAB ONE (15:32)
[2019-06-11 17:32] VITALS: TEMP 97.7
[2019-06-11 17:33] VITALS: O2SAT 97
[2019-06-11 17:35] VITALS: BP 116/72
== END 2019-06-11 16:43 | disposition home or self-care (01) ==
LOC: ER 09:45
DX: R10.10 Upper abdominal pain, unspecified (principal); R11.2 Nausea with vomiting, unspecified
CPT/HCPCS: 85025; 80048; 36415; 81025; 80076; 81003; 83690; 74177; 76705; 96375; 96374; 99284; Q9967; J7030; J2405

== ENCOUNTER 2019-10-02 18:50 | Emergency (ER) | payer OTHER, SELFPAY ==
--- NOTE | 2019-10-02 19:54 | EDPHYS ---
Physician Documentation [facility] Name: Yasmin Walker Age: 24 yrs Sex: Female : 1995 Arrival Date: 10/02/2019 Time: 18:54 Bed 18 Private MD: ED Physician Clay Og HPI: 10/02 20:02 This 24 yrs old Female presents to ER via Ambulatory with complaints of snw Abdominal Pain, 13 wks . 20:02 The patient presents with abdominal pain in the lower abdomen. Onset: The snw symptoms/episode began/occurred acutely. The symptoms do not radiate. Associated signs and symptoms: Pertinent positives: "s/s of ". It feels like she will miscarry. Pt has not performed UPT. The symptoms are described as crampy. Severity of pain: At its worst the pain was mild moderate. It is unknown whether or not the patient has had similar symptoms in the past. The patient has not recently seen a physician. 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 - Coronavirus screen:: The patient has NOT traveled to [place] in the past 14 days. - Social history:: Smoking status: Patient reports the use of cigarette tobacco products, denies chronic smoking, but will smoke occasionally. - Ebola Screening: : Patient negative for fever greater than or equal to 101.5 degrees Fahrenheit, and additional compatible Ebola Virus Disease symptoms Patient denies exposure to infectious person. ROS: 20:00 Constitutional: Negative for fever, chills, and weight loss, Eyes: Negative for injury, snw pain, redness, and discharge, ENT: Negative for injury, pain, and discharge, Neck: Negative for injury, pain, and swelling, Cardiovascular: Negative for chest pain, palpitations, and edema, Respiratory: Negative for shortness of breath, cough, wheezing, and pleuritic chest pain, Abdomen/GI: Positive for abdominal pain, pt states she thinks she is and is going to miscarry, pt states she has not taken a test. Pt states she is about 13 weeks but had normal cycle in August 2019. denies nausea, vomiting, diarrhea, and constipation, Back: Negative for injury and pain, : Negative for injury, bleeding, discharge, and swelling, MS/Extremity: Negative for injury and deformity, Skin: Negative for injury, rash, and discoloration, Neuro: Negative for headache, weakness, numbness, tingling, and seizure, Psych: Negative for depression, anxiety, suicide ideation, homicidal ideation, and hallucinations. Exam: 19:59 Constitutional: This is a well developed, well nourished patient who is awake, alert, snw and in no acute distress. Head/Face: Normocephalic, atraumatic. Eyes: Pupils equal round and reactive to light, extra-ocular motions intact. Lids and lashes normal. Conjunctiva and sclera are non-icteric and not injected. Cornea within normal limits. Periorbital areas with no swelling, redness, or edema. ENT: Nares patent. No nasal discharge, no septal abnormalities noted. Tympanic membranes are normal and external auditory canals are clear. Oropharynx with no redness, swelling, or masses, exudates, or evidence of obstruction, uvula midline. Mucous membranes moist. Neck: Trachea midline, no thyromegaly or masses palpated, and no cervical lymphadenopathy. Supple, full range of motion without nuchal rigidity, or vertebral point tenderness. No Meningismus. Chest/axilla: Normal chest wall appearance and motion. Nontender with no deformity. No lesions are appreciated. Cardiovascular: Regular rate and rhythm with a normal S1 and S2. No gallops, murmurs, or rubs. Normal PMI, no JVD. No pulse deficits. Respiratory: Lungs have equal breath sounds bilaterally, clear to auscultation and percussion. No rales, rhonchi or wheezes noted. No increased work of breathing, no retractions or nasal flaring. Abdomen/GI: Soft, non-tender, with normal bowel sounds. No distension or tympany. No guarding or rebound. No evidence of tenderness throughout. Back: No spinal tenderness. No costovertebral tenderness. Full range of motion. Skin: Warm, dry with normal turgor. Normal color with no rashes, no lesions, and no evidence of cellulitis. MS/ Extremity: Pulses equal, no cyanosis. Neurovascular intact. Full, normal range of motion. Neuro: Awake and alert, GCS 15, oriented to person, place, time, and situation. Cranial nerves II-XII grossly intact. Motor strength 5/5 in all extremities. Sensory grossly intact. Cerebellar exam normal. Normal gait. Psych: Awake, alert, with orientation to person, place and time. Behavior, mood, and affect are within normal limits. Vital Signs: 19:21 BP 107 / 87; Pulse 78; Resp 18; Temp 98.2; Pulse Ox 99% ; Weight 63.5 kg; Height 5 ft. wh 3 in. (160.02 cm); Pain 5/10; 19:21 Body Mass Index 24.80 (63.50 kg, 160.02 cm) wh MDM: 19:41 Patient medically screened. snw 20:01 Data reviewed: vital signs, nurses notes. Data interpreted: Pulse oximetry: on room air snw is 99 %. Interpretation: normal. Counseling: I had a detailed discussion with the patient and/or guardian regarding: the historical points, exam findings, and any diagnostic results supporting the discharge/admit diagnosis, lab results, to return to the emergency department if symptoms worsen or persist or if there are any questions or concerns that arise at home. Special discussion: Based on the patient's Hx, exam, and Dx evaluation, there is no indication for emergent surgery or inpatient Tx. It is understood by the patient/guardian that if the Sx's persist or worsen they need to return immediately for re-evaluation. Based on the history and exam findings, there is no indication for further emergent testing or inpatient evaluation. I discussed with the patient/guardian the need to see the OB Gyne specialist for further evaluation of the symptoms. I discussed with the patient/guardian the need to see the primary care provider for further evaluation of the symptoms. 10/02 19: Order name: Urine Culture snw 10/02 19: Order name: Urine Microscopic Only snw 10/02 19: Order name: Urine Test (obtain specimen); Complete Time: 19:39 snw 10/02 19:31 Order name: Urine Dipstick-Ancillary (obtain specimen); Complete Time: 19:39 snw 10/02 19:45 Order name: Urine Dipstick--Ancillary (enter results); Complete Time: 20:04 mw2 10/02 19:45 Order name: Urine --Ancillary (enter results); Complete Time: 20:04 mw2 Administered Medications: No medications were administered Disposition: 10/03 08:11 Co-signature as Attending Physician, Clay Og MD I agree with the assessment and tw4 plan of care. Disposition: 10/02/19 19:54 Discharged to Home. Impression: Cramp and spasm, Other abdominal pain. - Condition is Stable. - Discharge Instructions: Muscle Cramps and Spasms, Premenstrual Syndrome. - Prescriptions for Mobic 7.5 mg Oral Tablet - take 1 tablet by ORAL route once daily take with food; 20 tablet. Vitamin 27- 0.8 mg Oral Tablet - take 1 tablet by ORAL route once daily; 30 tablet. - Medication Reconciliation Form, Thank You Letter, Antibiotic Education, Prescription Opioid Use form. - Follow up: Private Physician; When: 2 - 3 days; Reason: Recheck today's complaints, Continuance of care, Re-evaluation by your physician. Follow up: Emergency Department; When: As needed; Reason: Worsening of condition. Signatures: Dispatcher [employer] EDLA Katie Tovar, LASHELL-C BEATER ENGINEER-CsnIta Marques Terrence, MD MD tw4 Corrections: (The following items were deleted from the chart) 10/02 20:10 19:54 10/02/2019 19:54 Discharged to Home. Impression: Cramp and spasm; Other abdominal wh pain. Condition is Stable. Forms are Medication Reconciliation Form, Thank You Letter, Antibiotic Education, Prescription Opioid Use. Follow up: Private Physician; When: 2 - 3 days; Reason: Recheck today's complaints, Continuance of care, Re-evaluation by your physician. Follow up: Emergency Department; When: As needed; Reason: Worsening of condition. snw
--- NOTE | 2019-10-02 19:54 | ER ---
Nurse's Notes [facility] Name: Yasmin Walker Age: 24 yrs Sex: Female : 1995 Arrival Date: 10/02/2019 Time: 18:54 Bed 18 Private MD: Diagnosis: Cramp and spasm;Other abdominal pain Presentation: 10/02 19:19 Presenting complaint: Patient states: She thinks she is but hasn't really wh tested. Pt states she feels like she is having a miscarriage C/O pain in suprapubic area radiating to lower back. Pt denies vaginal bleeding. Transition of care: patient was not received from another setting of care. Onset of symptoms was October 02, 2019. Risk Assessment: Do you want to hurt yourself or someone else? Patient reports no desire to harm self or others. Initial Sepsis Screen: Does the patient meet any 2 criteria? No. Patient's initial sepsis screen is negative. Does the patient have a suspected source of infection? No. Patient's initial sepsis screen is negative. Care prior to arrival: None. 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 - Coronavirus screen:: The patient has NOT traveled to [place] in the past 14 days. - Social history:: Smoking status: Patient reports the use of cigarette tobacco products, denies chronic smoking, but will smoke occasionally. - Ebola Screening: : Patient negative for fever greater than or equal to 101.5 degrees Fahrenheit, and additional compatible Ebola Virus Disease symptoms Patient denies exposure to infectious person. Screenin:23 Abuse screen: Denies threats or abuse. Denies injuries from another. Nutritional screening: No deficits noted. Tuberculosis screening: No symptoms or risk factors identified. Fall Risk None identified. Assessment: 19:22 General: Appears in no apparent distress. Behavior is calm, cooperative, appropriate for age. Pain: Complains of pain in suprapubic area Pain radiates to back Pain currently is 5 out of 10 on a pain scale. Quality of pain is described as crampy, pressure, Pain began 1 day ago. Is intermittent. Neuro: Level of Consciousness is awake, alert, obeys commands, Oriented to person, place, time, situation, Appropriate for age. Neuro: Reports. Cardiovascular: Heart tones S1 S2. Respiratory: Airway is patent Respiratory effort is even, unlabored, Respiratory pattern is regular, symmetrical. Respiratory: Breath sounds are clear bilaterally. GI: Abdomen is flat, non-distended, Bowel sounds present X 4 quads. Abd is soft and non tender X 4 quads. : No signs and/or symptoms were reported regarding the genitourinary system. EENT: No signs and/or symptoms were reported regarding the EENT system. Derm: Skin is intact, is healthy with good turgor, Skin is pink, warm \T\ dry. normal. Musculoskeletal: Circulation, motion, and sensation intact. Vital Signs: 19:21 BP 107 / 87; Pulse 78; Resp 18; Temp 98.2; Pulse Ox 99% ; Weight 63.5 kg; Height 5 ft. wh 3 in. (160.02 cm); Pain 5/10; 19:21 Body Mass Index 24.80 (63.50 kg, 160.02 cm) ED Course: 18:54 Patient arrived in ED. mr 19:[address] is Primary Nurse. 19:20 Triage completed. 19:24 Arm band placed on right wrist. 19:24 Patient has correct armband on for positive identification. Placed in gown. Bed in low wh position. Call light in reach. Side rails up X 1. Pulse ox on. NIBP on. 19:30 Katie Tovar FNP-C is PHCP. snw 19:30 Clay Og MD is Attending Physician. snw 20:09 No provider procedures requiring assistance completed. Patient did not have IV access during this emergency room visit. Administered Medications: No medications were administered Outcome: 19:54 Discharge ordered by . snw 20:09 Discharged to home ambulatory. 20:09 Condition: stable 20:09 Discharge instructions given to patient, Instructed on discharge instructions, follow up and referral plans. medication usage, POC Demonstrated understanding of instructions, follow-up care, medications, POC Prescriptions given X 2. 20:10 Patient left the ED. Signatures: Katie Tovar, VIOLIN REPAIRER-C VIOLIN REPAIRER-Csnw [place] Sari mr Ita Lane
[2019-10-02 19:59] LABS: Urine Blood NEGATIVE (NEG); Urine Glucose NEGATIVE (NEG); Urine Protein NEGATIVE (NEG); Urine Specific Gravity >1.030 (1.005-1.030); Urine pH 6.5 (5.0-7.0)
[2019-10-02 20:19] LABS: Urine Bacteria <20 /HPF (<20); Urine Culture Reflex Order NOT NEEDED; Urine Mucus 3+ /HPF (NONE SEEN); Urine RBC <5 /HPF (NONE SEEN)
[2019-10-02 20:56] VITALS: BP 107/87; TEMP 98.2; O2SAT 99
== END 2019-10-02 20:10 | disposition home or self-care (01) ==
LOC: ER 18:50
DX: O26.891 Other specified pregnancy related conditions, first trimester (principal); R25.2 Cramp and spasm; R10.9 Unspecified abdominal pain; F17.210 Nicotine dependence, cigarettes, uncomplicated
CPT/HCPCS: 81003; 81015; 81025; 87086; 87088; 99283

== ENCOUNTER 2019-10-07 04:15 | Emergency (ER) | payer OTHER, SELFPAY ==
[2019-10-07] MEDS ORDERED: THIAMINE 200 MG/2 ML INJ ONE (04:59)
[2019-10-07] MEDS ORDERED: FOLIC ACID 5 MG/ML VIAL ONE (05:00)
[2019-10-07] MEDS ORDERED: MULTIVITAMINS 10 ML VIAL (INJ) IV ONE (05:00)
[2019-10-07] MEDS ORDERED: NA CHLORIDE 0.9% 1,000 ML ONE (05:00)
[2019-10-07 05:01] LABS: Absolute Lymphocytes (CBC) 1.8 K/uL (0.7-4.9); Basophils % 0.4 % (0-1.3); Hematocrit 39.8 % (36.0-45.0); Lymphocytes % 16.9 % (15.3-44.8); MPV 7.1 fL (7.6-11.3); RBC Red Blood Cell Count 4.41 M/uL (3.86-4.86)
[2019-10-07 05:10] LABS: Protime INR 0.96
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
--- NOTE | 2019-10-07 05:24 | ER ---
Nurse's Notes [facility] Name: Yasmin Walker Age: 24 yrs Sex: Female : 1995 Arrival Date: 10/07/2019 Time: 04:19 Bed 7 Private MD: Diagnosis: Ingestion of alcohol Presentation: 10/07 04:15 Presenting complaint: EMS states: Called for patient in police custody that attempted lp1 strangling herself with sweatpants; Denies any SI/HI on arrival to ED; patient in police custody for public intoxication; Denies any previous mental health history. Transition of care: patient was not received from another setting of care. Onset of symptoms was October 07, 2019. Risk Assessment: Do you want to hurt yourself or someone else? Patient reports no desire to harm self or others. Initial Sepsis Screen: Does the patient meet any 2 criteria? No. Patient's initial sepsis screen is negative. Does the patient have a suspected source of infection? No. Patient's initial sepsis screen is negative. Care prior to arrival: None. 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 - Coronavirus screen:: The patient has NOT traveled to [place] in the past 14 days. The patient has NOT had contact with known/suspected case of Coronavirus?. - Social history:: Smoking status: Patient reports the use of cigarette tobacco products, denies chronic smoking, but will smoke occasionally. - Ebola Screening: : No symptoms or risks identified at this time. Screenin:39 Abuse screen: Denies threats or abuse. Denies injuries from another. Nutritional lp1 screening: No deficits noted. Tuberculosis screening: No symptoms or risk factors identified. Fall Risk None identified. Assessment: 04:30 General: Appears in no apparent distress. Behavior is cooperative. Pain: Denies pain. lp1 Neuro: Level of Consciousness is awake, alert, obeys commands, Oriented to person, place, time, situation, Gait is steady, Speech is normal. Cardiovascular: Patient's skin is warm and dry. Respiratory: Respiratory effort is even, unlabored, Breath sounds are clear bilaterally. GI: Abdomen is non-distended. : No signs and/or symptoms were reported regarding the genitourinary system. EENT: No signs and/or symptoms were reported regarding the EENT system. Derm: Skin is pink, warm \\T\\ dry. abrasions noted to bilateral forearms, bruising to hands; Patient states "yeah that happened tonight". Musculoskeletal: No deficits noted. 05:00 Reassessment: Charging patient's phone at nurses' station per request. lp1 05:13 Reassessment: Patient appears restless, states "I have to be at work at 0730 and I work lp1 in [place]"; explained to patient about intermediate warrant status, states "I'm going to get fired from my job". 05:22 Reassessment: Dr. Henry at bedside to discuss care with patient; Patient denies SI and lp1 HI; States "I just did something stupid while I was intoxicated, I'm sober now and I need to go to work, I have bills I need to pay". 05:28 Reassessment: Patient's cellphone returned. lp1 05:44 Reassessment: Security returned belongings to patient. lp1 Psych: 04:38 Subjective: Patient's mood is sad, Delusions are denied, Hallucinations are denied lp1 Having thoughts of Denies SI at this time. Objective: Patient is cooperative, Speech is normal, Affect is appropriate, Patient has mutilated themselves by Superficial small abrasions in different stages of healing to bilateral arms. Interventions: Removed personal items and placed in bag. Patient placed in hospital gown. Searched person for dangerous items. 04:39 Suicide Risk Assessment: Sad Person Scale: Sex of patient: Female: Score 0 points. Age lp1 of patient: Score 1 point if patient 15-34. Depression: Score 0 point if signs of depression are not present. Previous Attempt: Score 0 point if patient has not previously attempted suicide. Substance Abuse: Score 0 point if patient does not abuse alcohol or drugs. Rational Thinking: Score 1 point if patient is lacking rational thinking. Social Support: Score 0 if social support is present/available. Organized Plan: Score 1 point if patient had a plan in place. Relationship: Score 0 point if patient has a spouse or domestic partner. Chronic Sickness: Score 0 point if patient does not have a chronic illness, debilitating, or severe disorder. TOTAL POINTS: If total points are 3-4, proposed clinical action is close follow-up/consider hospitalization. Safety Checks: Personal items have been removed. Door is open. No visitors are present at this time. Patient uses of liquor, of "2 Buzzballs". Vital Signs: 04:15 BP 115 / 73; Pulse 112; Resp 16; Temp 97.9(O); Pulse Ox 99% on R/A; lp1 05:10 Weight 61.23 kg (R); lp1 ED Course: 04:19 Patient arrived in ED. lp1 04:25 Inserted saline lock: 20 gauge in right antecubital area, using aseptic technique. lp1 Blood collected. 04:31 Patel Henry MD is Attending Physician. pkl 04:34 Gina Gallagher, TYRESE is Primary Nurse. lp1 04:36 Triage completed. lp1 04:36 Arm band placed on right wrist. lp1 04:40 Patient has correct armband on for positive identification. Placed in gown. Bed in low lp1 position. 05:24 IV discontinued, No redness/swelling at site. Pressure dressing applied. lp1 Administered Medications: 05:08 Drug: Banana Bag - (NS 0.9% 1000 ml, foLIC Acid 1 mg, Thiamine 100 mg, Multivitamin 1 lp1 amp) Route: IV; Rate: 250 ml/hr; Site: right antecubital; Outcome: 05:26 AMA AMA form signed lp1 05:26 Condition: stable 05:44 Patient left the ED. lp1 Signatures: Patel Henry MD MD pkl Pena, Laura, RN RN lp1 Corrections: (The following items were deleted from the chart) 04:38 04:34 Presenting complaint: EMS states: Called for patient in police custody that kasey attempted strangling herself with sweatpants; Denies any SI/HI on arrival to ED; patient in police custody for public intoxication; Denies any previous mental health history lp1 04:38 04:34 Transition of care: patient was not received from another setting of care. lp1 lp1 04:38 04:34 Onset of symptoms was October 07, 2019 lp1 lp1 04:38 04:34 Risk Assessment: Do you want to hurt yourself or someone else? Patient reports no lp1 desire to harm self or others. lp1 04:34 Initial Sepsis Screen: Does the patient meet any 2 criteria? No. Patient's lp1 initial sepsis screen is negative. Does the patient have a suspected source of infection? No. Patient's initial sepsis screen is negative. lp1 04:34 Care prior to arrival: None. lp1 lp1 04:34 Method Of Arrival: EMS: [facility] lp1 lp1 04:34 Acuity: RICO 2 lp1 lp1 05:14 05:00 Reassessment: lp1 lp1
[2019-10-07 06:05] LABS: ALT/SGPT 53 U/L (12-78); AST/SGOT 69 U/L (15-37); Alkaline Phosphatase 73 U/L (45-117); BUN Blood Urea Nitrogen 5 mg/dL (7-18); Bicarbonate 22 mmol/L (21-32); Bilirubin Direct 0.2 mg/dL (0-0.2); Bilirubin Total 0.4 mg/dL (0.2-1.0); Glucose Level 93 mg/dL (74-106); Potassium 3.5 mmol/L (3.5-5.1); Protein, Total 8.3 g/dL (6.4-8.2); Sodium Level 138 mmol/L (136-145)
[2019-10-07 07:02] VITALS: BP 115/73; TEMP 97.9; O2SAT 99
--- NOTE | 2019-10-07 08:51 | EKG ---
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
== END 2019-10-07 05:44 | disposition left against medical advice (07) ==
LOC: ER 04:15
DX: F10.10 Alcohol abuse, uncomplicated (principal); Z72.0 Tobacco use
CPT/HCPCS: 93005; 85025; 80048; 36415; 80320; 80329 ×2; 85610; 80076; 85730; 96374; 99284; J3411; J7030

== ENCOUNTER 2020-03-13 15:08 | Emergency (ER) | payer OTHER ==
--- OUTSIDE RECORDS SUMMARY | 2020-03-13 15:10 | XMS REPORT | Continuity of Care Document ---
:1995 Author Organization [employer] Care Team Providers Name Role Phone [employer] Unavailable Un available Problems Problem Status Onset Classification Date Comments Sourc e Date Reported BACK PAIN Active 06/11/[address] [facility] [address] 16 PRE ADMIT Active 06/28/[address] Patient Resolved 10/31/19 Problem 06/15/2016 [facility] ast currently 14 (finding) V28.81 - SCRN Active 09/14/19 [facility] AJITH 13 Outpatien t Imaging [facility] Encounter for Active Problem 04/05/2017 [facility] supervision of Schet tler normal first , unspecified trimester Urinary tract Active Diagnosis 04/05/2017 [facility] infection Schettler affecting care of mother in second trimester, antepartum 1St trimester Active Diagnosis 04/05/2017 [facility] screening Schettler Active [facility] RELATED CONDITIONS, UNSP, UNSP Medications Medication Details Route Status Patient Ordering Order Source Instructions Provider Date Nystatin 1 Externally Active 537596 Schettler 03/30/ Brittanie application UNIT/GM 2017 Schettler to affected Externally area Twice a day Triamcinolone 1 Externally Active 0.05 % Schettler 03/30/ inr ich Acetonide application Externally 2017 Schettl er to affected Twice a day area Vitafol-One 1 capsule Orally Active 29-1-200 MG Schettler 03/27/ Whitney rich Orally Once a 2017 Schettler day Cephalexin 1 capsule Orally Active 500 MG Orally Schettler 03/27/ Hei nrich three times a 2016 Schettler day (tid) Vitafol-One 1 capsule Orally Active 29-1-200 MG Schettler 03/27/ Whitney rich Orally Once a 2017 Schettler day PNV-Total 1 cap, PO, Active Daily, 0 2015 Refill(s) Calcium 1,000 mL, Inactive 06/12/ Chloride Rate: 125 2015 0.0014 MEQ/ML ml/hr, / Potassium Infuse over: Chloride 0.004 8 hr, Route: MEQ/ML / IV, Total Sodium Volume: Chloride 0.103 1,000, Start MEQ/ML / date: Sodium Lactate 06/12/16 0.028 MEQ/ML 0:41:00 CDT, Injectable Duration: 30 Solution day, Stop date: 07/12/16 0:40:00 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 Adverse Info Not Adverse Active Whitney rich Reaction Available Reaction 7 Sche ttler Immunizations Immunization Date Given Site Status Last Updated Comments Ariella rce diphtheria/pertus 06/14/2016 Not Given [facility], acel/tetanus adult Results No Data Provided for This Section Pathology Reports No Data Provided for This Section Diagnostic Reports Report Value Date Source complete Clinical Indication: - Z36 Encounter for screening of mother. 04/24/2017 [facility] Outpatient single gestation US Comparison: None. Imaging No rtheast TECHNIQUE: Obstetrical ultra sound is performed with pratt scale and M-mode imaging. IMPRESSION: Please see the [facility]-generated obstetrical ultrasound report for this examination. This study was read and the report is in the EMR , under 'Ultrasound' GENERAL OBSERVATIONS REGARDING ULTRASO UND: 1. A normal or negative sono gram report should not delay further investigation of a clinically suspicious or abnormal . 2. position or overlap of parts may prevent complete evaluation of the fetus. 3. Congenital and developmen debbie abnormalities are not always sonographically visualized. 4. Repeat sonograms may be n ecessary depending on the clinical development during . SL: [id number] Consultation Notes No Data Provided for This Section Discharge Summaries No Data Provided for This Section History and Physicals No Data Provided for This Section Vital Signs Vital Sign Value Date Comments Source Weight 136 03/27/2017 Brittanie mccrary Height 63 03/27/2017 Brittanie mccrary Diastolic (mm Hg) 68 03/27/2017 Brittanie herrera Systolic (mm Hg) 100 03/27/2017 Brittanie Diehl hettler Respitory Rate 18 06/12/2016 [facility] Systolic (mm Hg) 124 06/12/2016 [facility] Diastolic (mm Hg) 72 06/12/2016 [facility] [address] Respitory Rate 18 06/12/2016 [facility] Weight 77.727 06/12/2016 [facility] BMI Calculated 30.35 06/12/2016 [facility] Height 160.02 cm 06/12/2016 [facility] Systolic (mm Hg) 122 06/12/2016 [facility] Diastolic (mm Hg) 72 06/12/2016 [facility] Encounters Location Location Encounter Encounter Reason Attending ADM DC Stat us Source Details Type Number For Provider Date Date Visit OD [id number] V28.81 BRITTANIE 09/25 Active HS - SCRN STEPHANE /2012 Outpati e nt AJITH Imaging [facility] Observation [id number] Esohe 06/12 06/12 Vini Aquino /2015 [facility] Procedures Procedure Code Date Perfomer Comments Source Appendix [id number] 08/14/2013 [facility] operation Assessment and Plan Assessment and Plan Date Source Extracted from:Title: OB Triage H&P L&D * 06/12/2016 [facility] Author: Bell Aquino MD Date: 06/12/16 Impression and Plan Diagnosis Back pain affecting (EQL26-LN O26.899, Working, Tx dical). condition: Stable. Maternal condition: Stable. 20 yo at 38w2d here for back pain 1. Back pain: Denies pain medication, wi ll admit for overnight obs given social situation and residence being far. Plan to repeat SVE in AM 2. FHTs reassuring 3. GBS unknown, no records with patient 4. Dispo: Admit for obs Plan of Care No Data Provided for This Section Social History Social History Date Source Social History TypeResponse 06/12/2016 [facility] Smoking Status Never smoker; Type: Cigarettes; Previous treatment: None; Ready to change: No; Concerns about tobacco use in household: No; Exposure to Tobacco Smoke None; Cigarette Smoking Last 365 Days No; Reg Smoking Cessation Counseling No Family History No Data Provided for This Section Advance Directives No Data Provided for This Section Functional Status No Data Provided for This Section
--- OUTSIDE RECORDS SUMMARY | 2020-03-13 15:10 | XMS REPORT | Summary of Care ---
:1995 Author Organization [facility] - Health Address [address] [place] [id number] Care Team Providers Name Role Phone Pcp, Patient Does Not Have A Primary Care Provider +[id number] 0-0000 Reason for Visit Reason Comments Rash Auth/Cert Status Reason Specialty Diagnoses / Referred By Referred To Procedures Contact Contact Emergency Medicine Adc Em ergency Dept [address] [place] [address] Fax: Encounter Details Date Type Department Care Team Description 01/04/2020 Emergency [facility]-Emergency Jessica Lewis, Rash in ad ult (Primary Department [employer] Dx) [address] [facility] [address] [place] [address] [id number] [place], [place] [id number] Allergies No Known Allergiesdocumented as of this encounter (statuses as of 01/04/2020) Medications Medication Sig Dispensed Refills Start Date End Date Status PNV 67-iron ps-folate Take 1 tablet by 30 capsule 6 01/24/2017 Active no.1-dha (VITAFOL mouth daily. ULTRA) 29 mg iron- 1 mg-200 mg Cap documented as of this encounter (statuses as of 01/04/2020) Active Problems Problem Noted Date Rubella non-immune status, antepartum 01/10/2019 Overview: Address pp Supervision of high-risk with insufficient p renatal care 01/09/2019 Multiparity 01/09/2019 Family history of congenital anomalies 01/24/2017 documented as of this encounter (statuses as of 01/04/2020) Resolved Problems Problem Noted Date Resolved Date UTI in 01/27/2017 01/09/2019 Overview: PRISCILLA at next visit High risk , antepartum 01/24/2017 01/10/20 19 Dysuria 01/24/2017 01/09/2019 Chlamydia infection during 06/01/2016 Overview: PRISCILLA in 3-4 weeks needed Abnormal maternal glucose tolerance, antepartum 05/31/2016 01/24/2017 Overview: Needs 3 hr Flu vaccine need 05/30/2016 01/24/2017 Overview: Received today History of depression 05/23/2016 01/24/2017 Supervision of high-risk with insufficient prenata l 03/22/2016 01/24/2017 care Multiparity 03/22/2016 01/24/2017 (spontaneous vaginal delivery) 08/07/201403/22 Active labor at term 08/06/2014 03/22/2016 Supervision of other high-risk 08/05/2014 08/07/2014 Overview: ICD10 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 Multiparity 08/05/2014 08/07/2014 History of self-harm 08/05/2014 03/22/2016 Bipolar disorder 08/05/2014 03/22/2016 UTI (Urinary tract infection, site not specified) 07/31/2014 03/22/2016 Overview: Needs PRISCILLA documented as of this encounter (statuses as of 01/04/2020) Immunizations Name Administration Dates Next Due Influenza Virus Vaccine Quad IM 3+ YRS 05/30/2016 Tdap 04/26/2016 documented as of this encounter Social History Tobacco Use Types Packs/Day Years Used Date Never Smoker Smokeless Tobacco: Never Used Alcohol Use Drinks/Week oz/Week Comments No Sex Assigned at Date Recorded Not on file Job Start Date Occupation Industry Not on file Not on file Not on file Travel History Travel Start Travel End No recent travel history available. COVID-19 Exposure Response Date Recorded In the last month, have you been in contact with No / Unsure 01/04/2020 7:29 PM CDT someone who was confirmed or suspected to have Coronavirus / COVID-19? documented as of this encounter Last Filed Vital Signs Vital Sign Reading Time Taken Comments Blood Pressure 116/61 01/04/2020 7:31 PM CDT Pulse 84 01/04/2020 7:31 PM CDT Temperature - - Respiratory Rate 12 01/04/2020 7:31 PM CDT Oxygen Saturation 100% 01/04/2020 7:31 PM CDT Inhaled Oxygen Concentration - - Weight 63.5 kg (140 lb) 01/04/2020 7:31 PM CDT Height 157.5 cm (5' 2") 01/04/2020 7:31 PM CDT Body Mass Index 25.61 01/04/2020 7:31 PM CDT documented in this encounter Discharge Instructions Jessica Orozco FNP - 01/04/2020DIAGNOSIS Skin rash NO LIFE-THREATENING FINDINGS ON TODAY'S EXAM. PROCEDURES IN THE ER TODAY: None MEDICATIONS ADMINISTERED IN THE ER TODAY: None YOUR PRESCRIPTIONS AND [id number]-RGPEHVO MEDICATION RECOMMENDATIONS: No prescriptions, you can take over the counter medications such as Benadryl for itching and Acetaminophen for pain Use over the counter antibiotic ointment on the rash You can also use over the counter hydrocortisone ointment on the rash to reduce itching and swelling SPECIAL CARE INSTRUCTIONS: Keep the rash clean and dry FOLLOW-UP RECOMMENDATIONS: RECOMMEND FOLLOW-UP WITH A PRIMARY CARE PROVIDER IN 2-5 DAYS, ESPECIALLY IF NO IMPROVEMENT IN SYMPTOMS. TO FOLLOW-UP WITHIN THE [facility], TRY THESE OPTIONS (CLINIC APPOINTMENTS AVAILABLE ON SGWV-OR-VUAG BASIS): 1. SCHEDULE AN APPOINTMENT ONLINE AT [email or web address] 2. OR CALL THE [facility] AT OR 3. OR CALL YOUR [facility] PHYSICIAN'S OFFICE DIRECTLY IF YOU ARE ALREADY AN ESTABLISHED [facility] PATIENT. OR, YOU MAY FOLLOW-UP WITH A PROVIDER OF YOUR CHOICE, SUCH : 1. A PHYSICIAN OF YOUR CHOICE 2. [facility], . LOCATIONS IN [facility] 3. [facility], [address] [place] [address]; [phone] RETURN TO ER FOR WORSENING OF SYMPTOMS. AttachmentsThe following attachments cannot be sent through Care Everywhere. Contact Dermatitis (Citizen Of [place])documented in this encounter Plan of Treatment Health Maintenance Due Date Last Done Comments MENINGOCOCCAL B VACCINES (1 2005 of 2 - Risk Bexsero 2-dose series) HPV VACCINES (1 - Female 2006 2-dose series) PAP SMEAR 2016 INFLUENZA VACCINE (#1) 2019 05/30/2016 CHLAMYDIA SCREENING 01/10/2020 01/09/2019, 01/24/2017, 05/30/2016, Additional history exists DTaP,Tdap,and Td Vaccines (2 04/26/2026 04/26/2016 - Td) PNEUMOCOCCAL 0-64 YEARS Aged Out No longe r eligible COMBINED SERIES based on patient 's age to complete this topic documented as of this encounter Procedures Procedure Name Priority Date/Time Associated Diagnosis Comme nts NOTICE OF PRIVACY Routine 01/04/2020 7:24 PM CDT PRACTICES CONSENT/REFUSAL FOR Routine 01/04/2020 7:24 PM CDT DIAGNOSIS AND TREATMENT documented in this encounter Results Not on filedocumented in this encounter Visit Diagnoses Diagnosis Rash in adult - Primary documented in this encounter Insurance Payer Benefit Plan / Subscriber ID Effective Phone Address [facility] [place] xxxxxxxxx 2018-Prese [address] Medic aid HEALTH CHOICE - [place] [phone] 1 MANAGED MEDICAID [place], [place] [phone] documented as of this encounter Advance Directives Name Relationship Healthcare Agent Relationship Co mmunication Milka Banuelos Mother Primary healthcare agent
--- NOTE | 2020-03-13 16:10 | EDPHYS ---
Physician Documentation [facility] Name: Yasmin Walker Age: 24 yrs Sex: Female : 1995 Arrival Date: 03/13/2020 Time: 15:11 Bed 16 Private MD: ED Physician Jono Gary HPI: 03/13 15:18 This 24 yrs old Female presents to ER via Ambulatory with complaints of kb Abdominal Pain. 15:18 The patient presents with abdominal pain in the lower abdomen. Onset: The kb symptoms/episode began/occurred 3 day(s) ago. The symptoms do not radiate. Associated signs and symptoms: Pertinent positives: diarrhea, Pertinent negatives: nausea and vomiting, fever. The symptoms are described as achy, constant. Modifying factors: The symptoms are alleviated by nothing, the symptoms are aggravated by nothing. Severity of pain: At its worst the pain was moderate in the emergency department the pain is unchanged. The patient has not experienced similar symptoms in the past. The patient has not recently seen a physician. Pt reports lower abd pain for 2-3 days. Reports slight diarrhea, no n/v, fever, chills. 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 - Social history:: Smoking status: Patient reports the use of cigarette tobacco products, denies chronic smoking, but will smoke occasionally, smokes one-half pack cigarettes per day, Patient/guardian denies using alcohol, street drugs. ROS: 15:18 Constitutional: Negative for fever, chills, and weight loss, Cardiovascular: Negative kb for chest pain, palpitations, and edema, Respiratory: Negative for shortness of breath, cough, wheezing, and pleuritic chest pain, Back: Negative for injury and pain, MS/Extremity: Negative for injury and deformity, Skin: Negative for injury, rash, and discoloration, Neuro: Negative for headache, weakness, numbness, tingling, and seizure. 15:18 Abdomen/GI: Positive for abdominal pain, diarrhea, Negative for nausea and vomiting. Exam: 15:18 Constitutional: This is a well developed, well nourished patient who is awake, alert, kb and in no acute distress. Head/Face: Normocephalic, atraumatic. Chest/axilla: Normal chest wall appearance and motion. Nontender with no deformity. No lesions are appreciated. Cardiovascular: Regular rate and rhythm with a normal S1 and S2. No gallops, murmurs, or rubs. Normal PMI, no JVD. No pulse deficits. Respiratory: Lungs have equal breath sounds bilaterally, clear to auscultation and percussion. No rales, rhonchi or wheezes noted. No increased work of breathing, no retractions or nasal flaring. Back: No spinal tenderness. No costovertebral tenderness. Full range of motion. Skin: Warm, dry with normal turgor. Normal color with no rashes, no lesions, and no evidence of cellulitis. MS/ Extremity: Pulses equal, no cyanosis. Neurovascular intact. Full, normal range of motion. Neuro: Awake and alert, GCS 15, oriented to person, place, time, and situation. Cranial nerves II-XII grossly intact. Motor strength 5/5 in all extremities. Sensory grossly intact. Cerebellar exam normal. Normal gait. 15:18 Abdomen/GI: Inspection: abdomen appears normal, Bowel sounds: normal, in all quadrants, Palpation: soft, in all quadrants, mild abdominal tenderness, in the right lower quadrant and left lower quadrant. Vital Signs: 15:15 BP 113 / 80; Pulse 83; Resp 17; Temp 98.6; Pulse Ox 100% ; Weight 65.77 kg; Height 5 ll1 ft. 3 in. (160.02 cm); Pain 6/10; 15:15 Body Mass Index 25.69 (65.77 kg, 160.02 cm) ll1 MDM: 15:18 Patient medically screened. kb 15:18 Data reviewed: vital signs, nurses notes. Data interpreted: Pulse oximetry: on room air kb is 100 %. Interpretation: normal. 16:08 Counseling: I had a detailed discussion with the patient and/or guardian regarding: the kb historical points, exam findings, and any diagnostic results supporting the discharge/admit diagnosis, lab results, the need for outpatient follow up, an OB/Gyne specialist, to return to the emergency department if symptoms worsen or persist or if there are any questions or concerns that arise at home. ED course: Pt has not had any vaginal bleeding. Pt reports discomfort across entire lower abd, no point tenderness. LMP was 4 weeks ago. Pt educated to return for worsening pain or vaginal bleeding. Pt will follow up with OB. . 03/13 16:01 Order name: Urine Dipstick--Ancillary (enter results) eb 03/13 16:01 Order name: Urine --Ancillary (enter results) eb 03/13 15:20 Order name: Urine Test (obtain specimen); Complete Time: 16:28 kb 03/13 15:20 Order name: Urine Dipstick-Ancillary (obtain specimen); Complete Time: 16:28 kb Administered Medications: No medications were administered Disposition: 03/14 08:01 Co-signature as Attending Physician, Jono Gary MD I agree with the assessment and [facility] plan of care. Disposition: 03/13/20 16:09 Discharged to Home. Impression: state. - Condition is Stable. - Discharge Instructions: First Trimester of , Ncbx-te-Dcry. - Medication Reconciliation Form, Thank You Letter, Antibiotic Education, Prescription Opioid Use, Work release form form. - Follow up: Private Physician; When: 2 - 3 days; Reason: Recheck today's complaints, Continuance of care, Re-evaluation by your physician. Follow up: Emergency Department; When: As needed; Reason: Worsening of condition. Signatures: Dispatcher [employer] EDPascale Puri, BEEF SKINNER-C BEEF SKINNER-Jono Camargo MD MD cha Harris, Amy, RN RN Madai Mercedes RN RN ll1 Corrections: (The following items were deleted from the chart) 03/13 16:33 16:09 03/13/2020 16:09 Discharged to Home. Impression: state. Condition is ah Stable. Forms are Medication Reconciliation Form, Thank You Letter, Antibiotic Education, Prescription Opioid Use. Follow up: Private Physician; When: 2 - 3 days; Reason: Recheck today's complaints, Continuance of care, Re-evaluation by your physician. Follow up: Emergency Department; When: As needed; Reason: Worsening of condition. kb
--- NOTE | 2020-03-13 16:10 | ER ---
Nurse's Notes [facility] Name: Yasmin Walker Age: 24 yrs Sex: Female : 1995 Arrival Date: 03/13/2020 Time: 15:11 Bed 16 Private MD: Diagnosis: state Presentation: 03/13 15:15 Chief complaint: Patient states: Lower abdominal cramping for 3 days. Slight diarrhea. ll1 No fever. Coronavirus screen: Client denies travel out of the [place] in the last 14 days. At this time, the client does not indicate any symptoms associated with coronavirus-19. Ebola Screen: Patient denies travel to an Ebola-affected area in the 21 days before illness onset. Initial Sepsis Screen: Does the patient meet any 2 criteria? No. Patient's initial sepsis screen is negative. Risk Assessment: Do you want to hurt yourself or someone else? Patient reports no desire to harm self or others. Onset of symptoms was March 11, 2020. 15:15 Method Of Arrival: Ambulatory ll1 15:15 Acuity: RICO 3 ll1 16:32 Initial Sepsis Screen: Does the patient have a suspected source of infection? No. ah Patient's initial sepsis screen is negative. RN BIRTHING: 16:07 5, 1, Living 3, LMP 02/11/2020 kb Historical: - Allergies: 15:14 No Known Allergies; ll1 - PMHx: 15:14 Asthma; ll1 - PSHx: 15:14 Appendectomy; ll1 - Immunization history:: Flu vaccine is not up to date. - Social history:: Smoking status: Patient reports the use of cigarette tobacco products, denies chronic smoking, but will smoke occasionally, smokes one-half pack cigarettes per day, Patient/guardian denies using alcohol, street drugs. Screenin:32 Abuse screen: Denies threats or abuse. Nutritional screening: No deficits noted. Tuberculosis screening: No symptoms or risk factors identified. Fall Risk None identified. Assessment: 16:15 General: Appears in no apparent distress. Behavior is calm, cooperative, appropriate for age. Pain: Denies pain. Neuro: Level of Consciousness is awake, alert, obeys commands, Oriented to person, place, time, situation, Appropriate for age. Cardiovascular: Capillary refill < 3 seconds Patient's skin is warm and dry. Respiratory: Airway is patent Respiratory effort is even, unlabored, Respiratory pattern is regular, symmetrical. GI: Stools are reported to be loose, Bowel sounds present X 4 quads. Abd is non tender Reports cramping. : Denies burning with urination. Derm: Skin is intact, is healthy with good turgor. Musculoskeletal: Circulation, motion, and sensation intact. Capillary refill < 3 seconds. Vital Signs: 15:15 BP 113 / 80; Pulse 83; Resp 17; Temp 98.6; Pulse Ox 100% ; Weight 65.77 kg; Height 5 ll1 ft. 3 in. (160.02 cm); Pain 6/10; 15:15 Body Mass Index 25.69 (65.77 kg, 160.02 cm) 1 ED Course: 15:11 Patient arrived in ED. mr 15:15 Pascale Fitzgerald FNP-C is [facility]. kb 15:15 Jono Gary MD is Attending Physician. kb 15:15 Arm band placed on Patient notified of wait time. 1 15:16 Triage completed. 1 16:04 Tianna Foley, RN is Primary Nurse. 16:33 Patient has correct armband on for positive identification. Bed in low position. Call light in reach. Side rails up X 1. 16:33 No provider procedures requiring assistance completed. Patient did not have IV access ah during this emergency room visit. Administered Medications: No medications were administered Outcome: 16:09 Discharge ordered by . kb 16:33 Discharged to home ambulatory. 16:33 Condition: good 16:33 Discharge instructions given to patient, Instructed on discharge instructions, follow up and referral plans. Demonstrated understanding of instructions, follow-up care. 16:33 Patient left the ED. Signatures: Pascale Fitzgerald FNP-C FNP-Jessica Sari Mills mr Tianna Foley, RN RN Madai Rdz RN RN [facility]
[2020-03-13 16:38] VITALS: BP 113/80; TEMP 98.6; O2SAT 100
[2020-03-13 17:19] LABS: Urine Blood NEGATIVE (NEG); Urine Glucose NEGATIVE (NEG); Urine Protein NEGATIVE (NEG)
== END 2020-03-13 16:33 | disposition home or self-care (01) ==
LOC: ER 15:08
DX: Z33.1 Pregnant state, incidental (principal); F17.210 Nicotine dependence, cigarettes, uncomplicated
CPT/HCPCS: 81003; 81025; 99281

== ENCOUNTER 2023-02-04 12:31 | Emergency (ER) | payer OTHER ==
--- OUTSIDE RECORDS SUMMARY | 2023-02-04 12:35 | XMS REPORT | Continuity of Care Document ---
:1995 Author Organization [facility] Address [address] [place] [address] [place] [id number] Care Team Providers Name Role Phone JOAN GOMEZ Attending Clinician Unavailable FILI BOSTON Attending Clinician Unavailable TOMA ELIZONDO Attending Clinician Unavailable Bell Aquino Attending Clinician Bell Aquino Admitting Clinician Payers Payer Name Policy Type Policy Number Effective Date Expiration Date [facility] [id number] 2018 [facility] MEDICAID 00:00:00 Problems Condition Condition Condition Status Onset Resolution Last Treating Co mments Source Name Details Category Date Date Treatment Clinician Date BACK PAIN BACK PAIN Diagnosis Active 2015-082016-06-12 Memoria Active 21:48:00 l 06/11/2016 00:00: Harshil luo [address] PRE ADMIT PRE Diagnosis Active 2013-082014-10-17 Memoria ADMIT 08-28 15:57:00 l Active 00:00: Vini 06/28/[address] [facility] V28.81 - V28.81 - Diagnosis Active 2012-09-25 Memoria SCRN SCRN 09-14 12:47:00 l AJITH AJITH 00:01: [place] Active 00 09/14/2012 [facility] Outpatient Imaging [facility] Encounter Encounter Problem Active 2017-04-05 Memoria for for 02:45:25 l supervisio supervisio Jason luo of n of normal normal first first , , unspecifie unspecifie d d trimester trimester Active Problem 04/05/2017 Florian Daigle Urinary Urinary Diagnosis Active 2017-04-05 Memoria tract tract 02:45:25 l infection infection Herm ciara affecting affecting care of care of mother in mother in second second trimester, trimester, antepartum antepartum Active Diagnosis 04/05/2017 [address] Diagnosis Active 2017-04-05 Mem oria trimester trimester 02:45:25 l screening screening Herm ciara Active Diagnosis 04/05/2017 Florian Daigle Diagnosis Active 2016-06-12 Memoria RELATED RELATED 21:48:00 l CONDITIONS CONDITIONS He rmann , UNSP, , UNSP, UNSP UNSP Active [facility] Patient Patient Problem Resolve 2016-06-15 2016-06-15 Memoria currently currently d 3-19 00:21:44 00:21:44 l 00:00: Harshil luo (finding) (finding) 00 Resolved 10/30/2013 Problem 06/15/2016 [facility] Allergies, Adverse Reactions, Alerts Allergy Allergy Status Severity Reaction(s) Onset Inactive Treating Comm ents Source Name Type Date Date Clinician N.K.D.A. N.K.D.A. Active Info Not 2016-08 Erick madai Available 0-19 l 00:00: NO KNOWN Drug Active [facility] ALLERGIE [facility] ity [facility] Social History Smoking Status Start Date Stop Date Source Social History [facility] Medications Ordered Filled Start Stop Current Ordering Indication Dosage Frequency Signature Comments Components Source Medication Medication Date Date Medication? Clinician (SIG) Name Name Vitafol-One 2016-08 Yes Florian G 1 capsule Memoria 2-29 Schettler l 03:45: Vini 32 Vitafol-One Yes Florian G 1 capsule Memoria 8-23 [place] l 02:45: [place] 25 Triamcinolo Yes Florian G 1 Memoria ne 8-17 Schettler applicatio l Acetonide 00:00: n to Vini 00 affected area Nystatin Yes Florian G 1 Mem oria 8-17 [place]tt[place] applicatio l 00:00: n to [place] 00 affected area Vitafol-One Yes Florian G 1 capsule Memoria 8-14 Schettler l 00:00: [place] 00 Vitafol-One Yes Florian G 1 capsule Memoria 8-14 Schettler l 00:00: Vini 00 Cephalexin Yes Florian G 1 capsule Memoria 8-14 Schettler l 00:00: [place] 00 PNV-Total 2015-08 Yes 1 cap, PO, Me moria 0-30 Daily, 0 l 10:30: Refill(s) [place] 00 Calcium 2015-08 No 1,000 mL, Memor ia Chloride 0-30 Rate: 125 l 0.0014 05:41: ml/hr, Vini MEQ/ML / 00 Infuse Potassium over: 8 Chloride hr, Route: 0.004 IV, Total MEQ/ML / Volume: Sodium 1,000, Chloride Start 0.103 date: MEQ/ML / 06/12/16 Sodium 0:41:00 Lactate CDT, 0.028 Duration: MEQ/ML 30 day, Injectable Stop date: Solution 07/12/16 0:40:00 JD EDWARDS DEVELOPER Vital Signs Vital Name Observation Time Observation Value Comments Source Weight 2017-03-27 18:30:00 [facility] [place] Height 2017-03-27 18:30:00 [facility] [place] Diastolic (mm Hg) 2017-03-27 18:30:00 Mem orial [place]ini Systolic (mm Hg) 2017-03-27 18:30:00 Erick rial [place] Respitory Rate 2016-06-12 12:50:00 Memori al [place] Systolic (mm Hg) 2016-06-12 12:50:00 Erick rial [place] Diastolic (mm Hg) 2016-06-12 12:50:00 Mem orial [place] Respitory Rate 2016-06-12 10:00:00 Memori al [facility] Weight 2016-06-12 05:41:00 [facility] [place] BMI Calculated 2016-06-12 05:41:00 Memori al [place] Height 2016-06-12 05:41:00 160.02 cm [facility] [place] Systolic (mm Hg) 2016-06-12 04:40:00 Erick rial [place] Diastolic (mm Hg) 2016-06-12 04:40:00 Mem orial [facility] Procedures Procedure Date / Time Performed Performing Clinician [facility] Appendix operation 2013-08-14 00:00:00 [facility] [place] Encounters Start End Encounter Admission Attending Care Care Encounter Source Date/Time Date/Time Type Type Clinicians Facility Department ID 2021-06-13 Outpatient [facility] [id number] Univers 05:28:11 [facility] 2021-06-10 Emergency [facility] [id number] Univers 22:06:49 [facility] 2020-10-19 2020-10-19 Outpatient R PATRICIA [facility] [id number] Univers 07:45:00 07:45:00 KEITHNDA smooth o [facility] 2020-10-12 2020-10-12 Outpatient R PATRICIA [facility] [id number] Univers 10:45:00 10:45:00 ANNAA ity o [facility] 2020-10-02 2020-10-02 Outpatient R AKINSIPE [facility] [id number] Univers 11:00:00 11:00:00 FILI smooth o [facility] 2020-09-25 2020-09-25 Outpatient R PATRICIA [facility] [id number] Univers 10:00:00 10:00:00 ANNAA smooth o [facility] 2020-09-18 2020-09-18 Outpatient R [facility] [id number] Univers 08:30:00 08:30:00 [facility] 2020-09-11 2020-09-11 Outpatient R PATRICIA [facility] [id number] Univers 10:15:00 10:15:00 ANNAA smooth o [facility] 2020-09-10 2020-09-10 Outpatient P [facility] [id number] Univers 15:15:00 15:15:00 [facility] 2020-08-25 2020-08-25 Outpatient R PATRICIA [facility] [id number] Univers 15:00:00 15:00:00 KEITHNDA ity o [facility] 2020-08-17 2020-08-17 Outpatient P [facility] [id number] Univers 08:00:00 08:00:00 [facility] 2020-08-10 2020-08-10 Outpatient R PATRICIA [facility] [id number] Univers 15:45:00 15:45:00 KEITHNDA ity o [facility] 2020-08-03 2020-08-03 Outpatient R PATRICIA [facility] [id number] Univers 14:30:00 14:30:00 KEITHNDA ity o [facility] 2020-07-24 2020-07-24 Outpatient R AKINSIPE, [facility] [id number] Univers 09:30:00 09:30:00 FILI it[address] o f [facility] 2020-07-23 2020-07-23 Outpatient P [facility] [id number] Univers 10:15:00 10:15:00 y [facility] 2020-07-22 2020-07-22 Outpatient P [facility] [id number] Univers 15:00:00 15:00:00 [facility] 2020-07-16 2020-07-16 Outpatient R MIKHAIL, [facility] [id number] Univers 13:00:00 13:00:00 TOMA [facility] 2020-06-24 2020-06-24 Outpatient P [facility] [id number] Univers 13:00:00 13:00:00 [facility] 2020-06-19 2020-06-19 Outpatient R MIKHAIL, [facility] [id number] Univers 16:00:00 16:00:00 TOMA osman [facility] 2020-06-10 2020-06-10 Outpatient R PATRICIA, [facility] [id number] Univers 09:15:00 09:15:[address] ROSHUNDA ity o f [facility] 2020-06-08 2020-06-08 Outpatient R PATRICIA, [facility] [id number] Univers 13:15:00 13:15:00 [address]HUNDA ity o f [facility] 2020-05-29 2020-05-29 Outpatient R AKINSIPE, [facility] [id number] Univers 15:45:00 15:45:00 FILI it[address] o f [facility] 2020-05-22 2020-05-22 Outpatient R AKINSIPE, [facility] [id number] Univers 13:00:00 13:00:00 FILI ity o f [facility] 2020-05-19 2020-05-19 Outpatient R GOMEZ, [facility] [id number] Univers 15:00:00 15:00:00 [address]HUNDA ity o f [facility] 2020-05-14 2020-05-14 Outpatient R GOMEZ, [facility] [id number] Univers 13:30:00 13:30:00 [address]DA ity o f [facility] 2020-05-08 2020-05-08 Outpatient P [facility] [id number] Univers 15:00:00 15:00:[address] [facility] 2020-04-16 2020-04-16 Outpatient Margairta GOMEZ, [facility] [id number] Univers 13:00:00 13:00:[address] [facility] 2017-09-29 2017-09-29 Outpatient Florian Florian G [id number] [facility]Clinic 12:38:00 12:38:00 G Pilo [place] 2017-08-10 2017-08-10 Outpatient Florian Florian G [id number] [facility]Clinic 09:36:00 09:36:00 G Pilo [place] 2017-06-01 2017-06-01 Outpatient Florian Florian G [id number] [facility] 13:45:00 13:45:00 G Pilo [place] 2017-05-22 2017-05-22 Outpatient Florian Florian G [id number] [facility]inic 14:00:00 14:00:00 G Pilo [place] 2017-03-30 2017-03-30 Outpatient Florian Florian G [id number] [facility]inic 14:31:00 14:31:00 Alisha [place] 2017-03-27 2017-03-27 Outpatient Florian Florain G [id number] [facility]inic 13:30:00 13:30:00 Alisha [place] 2016-06-12 2016-06-12 Observatio [facility] [id number] Memoria 04:45:00 13:08:00 puja Martini 03 l [facility] 2016-06-11 2016-06-12 Outpatient CHONG Aquino [facility] [id number] 23:45:00 08:08:00 Bell Carol 03 2012-09-25 2012-09-25 OD NEYMAR PARI [id number] Memoria 12:38:00 12:38:00 00 ej Martini Results This patient has no known results. Notes Date/Time Note Provider Source 2017-04-24 Clinical Indication: - Z36 E ncounter for screening of mother. [facility] Outpatient Imaging 13:06:05-00:00 Comparison: None. [facility] TECHNIQUE: Obstetrical ultra sound is performed with pratt scale and M-mode imaging. IMPRESSION: Please see the Simplist-generated obstetrical ultrasound report for this examination. This [...] on the clinical development during . SL: [id number]
[2023-02-04] MEDS ORDERED: LIDOCAINE HCL JELLY 2% 6 ML SYRINGE TOP ONE (14:21)
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
[2023-02-04] MEDS ORDERED: AMOX/K CLAV 875 MG TAB ONE (15:50)
[2023-02-04 16:21] VITALS: BP 105/72; TEMP 98.4; O2SAT 100
== END 2023-02-04 15:55 | disposition home or self-care (01) ==
LOC: ER 12:31
DX: S01.511A Laceration without foreign body of lip, initial encounter (principal)
CPT/HCPCS: 99283

== ENCOUNTER 2023-04-26 20:23 | Emergency (ER) | payer OTHER ==
--- OUTSIDE RECORDS SUMMARY | 2023-04-26 20:58 | XMS REPORT | Continuity of Care Document ---
:1995 Author Organization [facility] t Address [address] [place] [address] [place] [id number] Care Team Providers Name Role Phone JOAN GOMEZ Attending Clinician Unavailable FILI BOSTON Attending Clinician Unavailable TOMA ELIZONDO Attending Clinician Unavailable Bell Aquino Attending Clinician Bell Aquino Admitting Clinician Payers Payer Name Policy Type Policy Number Effective Date Expiration Date [facility] [id number] [address] [facility] MEDICAID 00:00:00 Problems Condition Condition Condition Status Onset Resolution Last Treating Co mments Source Name Details Category Date Date Treatment Clinician Date BACK PAIN BACK PAIN Diagnosis Active 2015-082016-06-12 Memoria Active 21:48:00 l 06/11/2016 00:00: Harshil luo [address] PRE ADMIT PRE ADMIT Diagnosis Active 2013-082014-10-17 Memoria Active 08-28 15:57:00 l 06/28/2014 00:00: Harshil RANGEL [address] V28.81 - V28.81 - Diagnosis Active 2012-09-25 Memoria SCRN SCRN - 12:47:00 l AJITH AJITH 00:01: Vini Active 00 09/14/2012 [facility] Urinary Diagnosis Active 2017-04-05 Memoria tract [...] , UNSP, , UNSP, UNSP UNSP Active [facility] Encounter Encounter Problem Active 2017-04-05 Memoria for for 02:45:25 l supervisio supervisio Jason deleon n of n of normal normal first first , , unspecifie unspecifie d d trimester trimester Active Problem 04/05/2017 Florian Daigle Patient Patient Problem Resolve 2013-2016-06-15 2016-06-15 Memoria currently currently d 3-19 00:21:44 00:21:44 l 00:00: Harshil luo (finding) (finding) 00 Resolved 10/30/2013 Problem 06/15/2016 [facility] Allergies, Adverse Reactions, Alerts Allergy Allergy Status Severity Reaction(s) Onset Inactive Treating Comm ents Source Name Type Date Date Clinician N.K.D.A. N.K.D.A. Active Info Not 2016-08 Erick madai Available 0-19 l 00:00: NO KNOWN Drug Active [facility] ity [facility] Social History Smoking Status Start Date Stop Date Source Social History [facility] Medications Ordered Filled Start Stop Current Ordering Indication Dosage Frequency Signature Comments Components Source Medication Medication Date Date Medication? Clinician (SIG) Name Name Vitafol-One 2016-08 Yes Florian G 1 capsule Memoria 2-29 [place] l 03:45: Vitafol-One 2016-08 Yes Florian G 1 capsule Memoria 2-29 [place]tt[place] l 03:45: Vitafol-One Yes Florian G 1 capsule Memoria 8-23 [place]tt[place] l 02:45: Vitafol-One Yes Florian G 1 capsule Memoria 8-23 [place]ttler l 02:45: Vini 25 Triamcinolo Yes Florian Brito 1 Memoria ne 8-17 Schettler applicatio l Acetonide 00:00: n to Vini 00 affected area Nystatin Yes Florian Brito 1 Mem oria 8-17 [place] applicatio l 00:00: n to affected area Triamcinolo Yes Florian Brito 1 Memoria ne 8-17 [place] applicatio l Acetonide 00:00: n to Vini 00 affected area Nystatin 2017-0 Yes Florian G 1 Mem oria 8-17 [place] applicatio l 00:00: n to affected area Vitafol-One 0 Yes Florian G 1 capsule Memoria 8-14 [place]tt[place] l 00:00: Vitafol-One 2016-0 Yes Florian G 1 capsule Memoria 8-14 [place] l 00:00: Cephalexin 0 Yes Florian G 1 capsule Memoria 8-14 [place] l 00:00: Vini 00 Vitafol-One 0 Yes Florian G 1 capsule Memoria 8-14 [place] l 00:00: Vitafol-One 0 Yes Florian G 1 capsule Memoria 8-14 [place]tt[place] l 00:00: Cephalexin 2016-0 Yes Florian G 1 capsule Memoria 8-14 [place]tt[place] l 00:00: PNV-Total 2015-08 Yes 1 cap, PO, Me moria 0-30 Daily, 0 l 10:30: Refill(s) PNV-Total 2015-08 Yes 1 cap, PO, Me moria 0-30 Daily, 0 l 10:30: Refill(s) Calcium 2015-08 No 1,000 mL, Memor ia Chloride 0-30 Rate: 125 l 0.0014 05:41: ml/hr, [place] MEQ/ML / 00 Infuse Potassium over: 8 Chloride hr, Route: 0.004 IV, Total MEQ/ML / Volume: Sodium 1,000, Chloride Start 0.103 date: MEQ/ML / 06/12/16 Sodium 0:41:00 Lactate CDT, 0.028 Duration: MEQ/ML 30 day, Injectable Stop date: Solution 07/12/16 0:40:00 [employer]UFA[employer]URING [employer]INT Calcium 2015-08 No 1,000 mL, Memor ia Chloride 030 Rate: 125 l 0.0014 05:41: ml/hr, [place] MEQ/ML / 00 Infuse Potassium over: 8 Chloride hr, Route: 0.004 IV, Total MEQ/ML / Volume: Sodium 1,000, Chloride Start 0.103 date: MEQ/ML / 06/12/16 Sodium 0:41:00 Lactate CDT, 0.028 Duration: MEQ/ML 30 day, Injectable Stop date: Solution 07/12/16 0:40:00 [employer] Vital Signs Vital Name Observation Time Observation Value Comments Source Weight 2017-03-27 18:30:00 [facility] [place] Height 2017-03-27 18:30:00 [facility] Diastolic (mm Hg) 2017-03-27 18:30:00 Mem o[facility] Systolic (mm Hg) 2017-03-27 18:30:00 Erick [facility] Respitory Rate 2016-06-12 12:50:00 Memori al [place] Systolic (mm Hg) 2016-06-12 12:50:00 Erick rial [place] Diastolic (mm Hg) 2016-06-12 12:50:00 Mem o[facility] Respitory Rate 2016-06-12 10:00:00 Memori al [place] Weight 2016-06-12 05:41:00 [facility] BMI Calculated 2016-06-12 05:41:00 [facility] Height 2016-06-12 05:41:00 160.02 cm [facility] Systolic (mm Hg) 2016-06-12 04:40:00 Erick [facility] Diastolic (mm Hg) 2016-06-12 04:40:00 Mem orial [facility] Procedures Procedure Date / Time Performed Performing Clinician [facility] e Appendix operation 2013-08-14 00:00:00 [facility] Encounters Start End Encounter Admission Attending Care Care Encounter Source Date/Time Date/Time Type Type Clinicians Facility Department ID 2021-06-13 Outpatient [facility] [id number] [facility] 05:28:[address] [facility] 2021-06-10 Emergency [facility] [id number] [facility]-10[facility] 2020-10-19 Outpatient Margarita GOMEZ [facility] [id number] Univers 07:45:00 07:45:00 ROSHUNDA ity o f [facility] 2020-10-12 2020-10-12 Outpatient Margarita GOMEZ [facility] [id number] Univers 10:45:00 10:45:00 ROSHUNDA ity o f [facility] 2020-10-02 2020-10-02 Outpatient R AKINKRIS [facility] [id number] Univers 11:00:00 11:00:00 FILI ity o f [facility] 2020-09-25 2020-09-25 Outpatient R PATRICIA [facility] [id number] Univers 10:00:00 10:00:00 ROSARVINDNDA ity o f [facility] 2020-09-18 2020-09-18 Outpatient R [facility] [id number] Univers 08:30:00 08:30:[address] [facility] 2020-09-11 2020-09-11 Outpatient R PATRICIA [facility] [id number] Univers 10:15:00 10:15:00 KEITHNDA ity o f [facility] 2020-09-10 2020-09-10 Outpatient P [facility] [id number] Univers 15:15:00 [facility] 2020-08[facility] 2020-08-25 Outpatient R PATRICIA [facility] [id number] Univers 15:00:00 15:00:00 KEITHNDA ity o f [facility] 2020-08-17 2020-08-17 Outpatient P [facility] [id number] Univers 08:00:00 08:00:[address] [facility] 2020-08-10 2020-08-10 Outpatient R PATRICIA [facility] [id number] Univers 15:45:00 15:45:00 KEITHNDA ity o f [facility] 2020-08-03 2020-08-03 Outpatient R PATRICIA [facility] [id number] Univers 14:30:00 14:30:00 KEITHNDA ity o f [facility] 2020-07-24 2020-07-24 Outpatient R AKINKRIS [facility] [id number] Univers 09:30:00 09:30:00 FILI ity o f [facility] 2020-07-23 2020-07-23 Outpatient P [facility] [id number] Univers 10:15:00 10:15:[address] [facility] 2020-07-22 2020-07-22 Outpatient P [facility] [id number] Univers 15:00:00 15:00:[address] [facility] 2020-07-16 2020-07-16 Outpatient R MIKHAIL [facility] [id number] Univers 13:00:00 13:00:[address] [facility] 2020-06-24 2020-06-24 Outpatient P [facility] [id number] Univers 13:00:00 13:00:[address] [facility] 2020-06-19 2020-06-19 Outpatient R MIKHAIL [facility] [id number] Univers 16:00:00 16:00:[address] [facility] 2020-06-10 2020-06-10 Outpatient R PATRICIA [facility] [id number] Univers 09:15:00 09:15:00 KEITHNDA ity o f [facility] 2020-06-08 2020-06-08 Outpatient R PATRICIA [facility] [id number] Univers 13:15:00 13:15:00 KEITHNDA ity o f [facility] 2020-05-29 2020-05-29 Outpatient R AKINSIPE, [facility] [id number] Univers 15:45:00 15:45:00 FILI ity o f [facility] 2020-05-22 2020-05-22 Outpatient R AKINSIPE, [facility] [id number] Univers 13:00:00 13:00:00 FILI ity o f [facility] 2020-05-19 2020-05-19 Outpatient R PATRICIA [facility] [id number] Univers 15:00:00 15:00:00 KEITHNDA ity o f [facility] 2020-05-14 2020-05-14 Outpatient R PATRICIA [facility] [id number] Univers 13:30:00 13:30:00 KEITHNDA ity o f [facility] 2020-05-08 2020-05-08 Outpatient P [facility] [id number] Univers 15:00:00 15:00:[address] [facility] 2020-04-16 2020-04-16 Outpatient R PATRICIA [facility] [id number] Univers 13:00:00 13:00:00 ROSARVINDNDA ity o f [facility] 2017-09-29 2017-09-29 Outpatient Florian Brito [id number] [facility] 12:38:00 12:38:00 G Pilo [place] 2017-08-10 2017-08-10 Outpatient Florian Brito [id number] [facility] 09:36:00 09:36:00 G Pilo [place] 2017-06-01 2017-06-01 Outpatient Florian Brito [id number] [facility] 13:45:00 13:45:00 Alisha [place] 2017-05-22 2017-05-22 Outpatient Florian Brito [id number] [facility] 14:00:00 14:00:00 G Pilo [place] 2017-03-30 2017-03-30 Outpatient Florian Brito [id number] [facility] 14:31:00 14:31:00 G Pilo [place] 2017-03-27 2017-03-27 Outpatient Florian Brito [id number] [facility] 13:30:00 13:30:00 Alisha [place] 2016-06-12 2016-06-12 [facility] [id number] [facility] 04:45:00 13:08:00 n margarita Martini 03 l [facility] 2016-06-12 2016-06-12 Observatio [facility] [id number] [facility] 04:45:00 13:08:00 puja Martini 03 l [facility] 2016-06-11 2016-06-12 Outpatient Ohuo, [facility] [id number] 23:45:00 08:08:00 Esohe Carol 03 2012-09-25 2012-09-25 OD NEYMAR BLACKMON [id number] [facility] 12:38:00 12:38:00 00 ej Martini 2012-09-25 2012-09-25 OD NEYMAR BLACKMON [id number] [facility] 12:38:00 12:38:00 00 ej Martini Results This patient has no known results. Notes Date/Time Note Provider Source 2017-04-24 Clinical Indication: - Z36 E ncounter for screening of mother. [facility] Outpatient Imaging 13:06:05-00:00 Comparison: None. [facility] TECHNIQUE: Obstetrical ultra sound is performed with pratt scale and M-mode imaging. IMPRESSION: Please see the c omputer-generated obstetrical ultrasound report for this examination. This [...] on the clinical development during . SL: [id number] 2017-04-24 Clinical Indication: - Z36 E ncounter for screening of mother. [facility] Outpatient Imaging 13:06:05-00:00 Comparison: None. [facility] TECHNIQUE: Obstetrical ultra sound is performed with pratt scale and M-mode imaging. IMPRESSION: Please see the c omputer-generated obstetrical ultrasound report for this examination. This [...] on the clinical development during . SL: [id number]
--- NOTE | 2023-04-26 21:34 | ER ---
Nurse's Notes [facility] Name: Yasmin Walker Age: 27 yrs Sex: Female : 1995 Arrival Date: 04/26/2023 Time: 20:23 Bed IW10 Private MD: Diagnosis: ED Course: 04/26 20:25 Patient arrived in ED. mr 20:31 Jono Van PA is PHCP. cp 20:31 Yousuf Miller MD is Attending Physician. cp 21:06 [facility]. No response. Unable to locate patient. Will as6 disposition as left without being seen by a provider. Administered Medications: No medications were administered Outcome: 21:33 Patient left the ED. as6 Signatures: Sari Mills mr Jono Van PA PA David Astorga, RN RN as6
== END 2023-04-26 21:33 | disposition left against medical advice (07) ==
LOC: ER 20:23
DX: Z02.9 Encounter for administrative examinations, unspecified (principal)

== ENCOUNTER 2023-04-27 13:30 | Emergency (ER) | payer OTHER ==
--- OUTSIDE RECORDS SUMMARY | 2023-04-27 13:37 | XMS REPORT | Continuity of Care Document ---
:1995 Author Organization [facility] t Address [address] [place] [address] [place] [id number] Care Team Providers Name Role Phone JOAN GOMEZ Attending Clinician Unavailable FILI BOSTON Attending Clinician Unavailable TOMA ELIZONDO Attending Clinician Unavailable Bell Aquino Attending Clinician Bell Aquino Admitting Clinician Payers Payer Name Policy Type Policy Number Effective Date Expiration Date Critical access hospital [id number] [facility] MEDICAID 00:00:00 Problems Condition Condition Condition Status Onset Resolution Last Treating Co mments Source Name Details Category Date Date Treatment Clinician Date BACK PAIN BACK PAIN Diagnosis Active 2015-082016-06-12 Memoria Active 21:48:00 l 06/11/2016 00:00: Harshil luo [address] PRE ADMIT PRE ADMIT Diagnosis Active 2013-082014-10-17 Memoria Active 08-28 15:57:00 l 06/28/2014 00:00: Harshil RANGEL [address] V28.81 - V28.81 - Diagnosis Active 2012-09-25 Memoria SCRN SCRN - 12:47:00 l AJITH AJITH 00:01: Vini Active 00 09/14/2012 [facility]inary Diagnosis Active [...] , UNSP, , UNSP, UNSP UNSP Active [facility] Encounter Encounter Problem Active 2017-04-05 Memoria for for 02:45:25 l supervisio supervisio Jason deleon n of n of normal normal first first , , unspecifie unspecifie d d trimester trimester Active Problem 04/05/2017 Florian Daigle Patient Patient Problem Resolve 2016-06-15 2016-06-15 Memoria currently currently d 3-19 00:21:44 00:21:44 l 00:00: Harshil luo (finding) (finding) 00 Resolved 10/30/2013 Problem 06/15/2016 [facility] Allergies, Adverse Reactions, Alerts Allergy Allergy Status Severity Reaction(s) Onset Inactive Treating Comm ents Source Name Type Date Date Clinician N.K.D.A. N.K.D.A. Active Info Not 2016-08 Erick madai Available 0-19 l 00:00: NO KNOWN Drug Active [facility] ity [facility] Social History Smoking Status Start Date Stop Date Source Social History [facility] Medications Ordered Filled Start Stop Current Ordering [...] 1 capsule Memoria 8-23 Schettler l 02:45: Triamcinolo Yes Florian G 1 Memoria ne 8-17 Schettler applicatio l Acetonide 00:00: n to Vini 00 affected area Nystatin 2017-0 Yes Florian G 1 Mem oria 8-17 Schettler applicatio l 00:00: n to Slinger 00 affected area Triamcinolo 2017-0 Yes Florian G 1 Memoria ne 8-17 Schettler applicatio l Acetonide 00:00: n to Vini 00 affected area Nystatin 2017-0 Yes Florian G 1 Mem oria 8-17 Schettler applicatio l 00:00: n to Vini 00 affected area Triamcinolo 2017-0 Yes Florian G 1 Memoria ne 8-17 Schettler applicatio l Acetonide 00:00: n to Vini 00 affected area Nystatin 2017-0 Yes Florian G 1 Mem oria 8-17 Schettler applicatio l 00:00: n to Vini 00 affected area Vitafol-One 2017-0 Yes Florian G 1 capsule Memoria 8-14 Schettler l 00:00: Slinger 00 Vitafol-One 2017-0 Yes Florian G 1 capsule Memoria 8-14 Schettler l 00:00: Slinger 00 Cephalexin 2017-0 Yes Florian G 1 capsule Memoria 8-14 Schettler l 00:00: Vini 00 Vitafol-One 2017-0 Yes Florian G 1 capsule Memoria 8-14 Schettler l 00:00: Vini 00 Vitafol-One 2017-0 Yes Florian G 1 capsule Memoria 8-14 Schettler l 00:00: Vini 00 Cephalexin 2017-0 Yes Florian G 1 capsule Memoria 8-14 Schettler l 00:00: Vini 00 Vitafol-One 2017-0 Yes Florian G 1 capsule Memoria 8-14 Schettler l 00:00: Vini 00 Vitafol-One 2017-0 Yes Florian G 1 capsule Memoria 8-14 Schettler l 00:00: Slinger 00 Cephalexin 2017-0 Yes Florian G 1 capsule Memoria 8-14 Schettler l 00:00: Slinger 00 PNV-Total 2015-08 Yes 1 cap, PO, Me moria 0-30 Daily, 0 l 10:30: Refill(s) Slinger PNV-Total 2015-08 Yes 1 cap, PO, Me moria 0-30 Daily, 0 l 10:30: Refill(s) Vini 00 PNV-Total 2015-08 Yes 1 cap, PO, Me moria 0-30 Daily, 0 l 10:30: Refill(s) Vini 00 Calcium 2015-08 No 1,000 mL, Memor ia Chloride 0-30 Rate: 125 l 0.0014 05:41: ml/hr, Vini MEQ/ML / 00 Infuse Potassium over: 8 Chloride hr, Route: 0.004 IV, Total MEQ/ML / Volume: Sodium 1,000, Chloride Start 0.103 date: MEQ/ML / 06/12/16 Sodium 0:41:00 Lactate CDT, 0.028 Duration: MEQ/ML 30 day, Injectable Stop date: Solution 07/12/16 0:40:00 [employer] Calcium 2015-08 No 1,000 mL, Memor ia Chloride 0-30 Rate: 125 l 0.0014 05:41: ml/hr, Slinger MEQ/ML / 00 Infuse Potassium over: 8 Chloride hr, Route: 0.004 IV, Total MEQ/ML / Volume: Sodium 1,000, Chloride Start 0.103 date: MEQ/ML / 06/12/16 Sodium 0:41:00 Lactate CDT, 0.028 Duration: MEQ/ML 30 day, Injectable Stop date: Solution 07/12/16 0:40:00 [employer] Calcium 2015-08 No 1,000 mL, Memor ia Chloride 0-30 Rate: 125 l 0.0014 05:41: ml/hr, Vini MEQ/ML / 00 Infuse Potassium over: 8 Chloride hr, Route: 0.004 IV, Total MEQ/ML / Volume: Sodium 1,000, Chloride Start 0.103 date: MEQ/ML / 06/12/16 Sodium 0:41:00 Lactate CDT, 0.028 Duration: MEQ/ML 30 day, Injectable Stop date: Solution 07/12/16 0:40:00 [employer] Vital Signs Vital Name Observation Time Observation Value Comments Source Weight 2017-03-27 18:30:00 [facility] Vini Height 2017-03-27 18:30:00 [facility] Vini Diastolic (mm Hg) 2017-03-27 18:30:00 [facility] Slinger Systolic (mm Hg) 2017-03-27 18:30:00 Erick rial Slinger Respitory Rate 2016-06-12 12:50:00 Memori al [place] Systolic (mm Hg) 2016-06-12 12:50:00 Erick rial Vini Diastolic (mm Hg) 2016-06-12 12:50:00 Mem orial Slinger Respitory Rate 2016-06-12 10:00:00 Ritu al [place] Weight 2016-06-12 05:41:00 [facility] [place] BMI Calculated 2016-06-12 05:41:00 Memori al [place] Height 2016-06-12 05:41:00 160.02 cm [facility] [place] Systolic (mm Hg) 2016-06-12 04:40:00 Erick rial Vini Diastolic (mm Hg) 2016-06-12 04:40:00 Mem orial [place] Procedures Procedure Date / Time Performed Performing Clinician [facility] e Appendix operation 2013-08-14 00:00:00 [facility] [place] Encounters Start End Encounter Admission Attending Care Care Encounter Source Date/Time Date/Time Type Type Clinicians Facility Department ID 2021-06-13 Outpatient [facility] [id number] Univers 05:28:[address] [facility] [place] [place] 2021-06-10 Emergency [facility] [id number] Univers 22:06:49 [facility] 2020-10-19 2020-10-19 Outpatient R PATRICIA [facility] [id number] Univers 07:45:00 07:45:00 ROSHUNDA ity o f [facility] 2020-10-12 2020-10-12 Outpatient R GOMEZ [facility] [id number] Univers 10:45:00 10:45:00 ROSHUNDA ity o f [facility] 2020-10-02 2020-10-02 Outpatient R AKINSIPE, [facility] [id number] Univers 11:00:00 11:00:00 FILI ity o f [facility] 2020-09-25 2020-09-25 Outpatient R GOMEZ [facility] [id number] Univers 10:00:00 10:00:00 ROSHUNDA ity o f [facility] 2020-09-18 2020-09-18 Outpatient R [facility] [id number] Univers 08:30:00 08:30:[address] [facility] [place] [place] 2020-09-11 2020-09-11 Outpatient R PATRICIA [facility] [id number] Univers 10:15:00 10:15:00 ANNAA ity o f [facility] 2020-09-10 2020-09-10 Outpatient P [facility] [id number] Univers 15:15:00 15:15:[address] [facility] [place] [place] 2020-08-25 2020-08-25 Outpatient R PATRICIA [facility] [id number] Univers 15:00:00 15:00:00 ANNAA ity o f [facility] 2020-08-17 2020-08-17 Outpatient P [facility] [id number] Univers 08:00:00 [facility] 2020-08-10 Outpatient R PATRICIA [facility] [id number] Univers 15:45:00 15:45:00 ANNAA smooth o f [facility] 2020-08-03 2020-08-03 Outpatient R PATRICIA [facility] [id number] Univers 14:30:00 14:30:00 ANNAA ity o f [facility] 2020-07-24 2020-07-24 Outpatient R AKINSIYSABEL [facility] [id number] Univers 09:30:00 09:30:00 FILI ity o f [facility] 2020-07-23 2020-07-23 Outpatient P [facility] [id number] Univers 10:15:00 10:15:00 [facility] 2020-07-22 2020-07-22 Outpatient P [facility] [id number] Univers 15:00:00 [facility]:00[facility] 2020-07-16 2020-07-[facility] [id number] Univers 13:00:00 13:00:00 TOMA [facility] 2020-06-24 2020-06-24 Outpatient P [facility] [id number] Univers 13:00:00 13:00:00 [facility] 2020-06-19 2020-06-19 [facility] [id number] Univers 16:00:00 16:00:[address] [facility] [place] [place] 2020-06-10 2020-06-10 Outpatient R PATRICIA, [facility] [id number] Univers 09:15:00 09:15:00 JOAN brandt [facility] 2020-06-08 2020-06-08 Outpatient R PATRICIA, [facility] [id number] Univers 13:15:00 13:15:00 JOAN brandt [facility] 2020-05-29 2020-05-29 Outpatient R AKINSIPE, [facility] [id number] Univers 15:45:00 15:45:00 FILI rebollar o karly [facility] 2020-05-22 2020-05-22 Outpatient R AKINSIPE, [facility] [id number] Univers 13:00:00 13:00:00 FILI brandt [facility] 2020-05-19 2020-05-19 Outpatient R PATRICIA, [facility] [id number] Univers 15:00:00 15:00:00 JOAN brandt [facility] 2020-05-14 2020-05-14 Outpatient R PATRICIA, [facility] [id number] Univers 13:30:00 13:30:00 JOAN brandt [facility] 2020-05-08 2020-05-08 Outpatient P [facility] [id number] Univers 15:00:00 15:00:[address] [facility] [place] [place] 2020-04-16 2020-04-16 Outpatient R PATRICIA, [facility] [id number] Univers 13:00:00 13:00:00 JOAN brandt [facility] 2017-09-29 2017-09-29 Outpatient Florian Brito [id number] [facility]inic 12:38:00 12:38:00 Alisha MONTGOMERY 2017-08-10 2017-08-10 Outpatient Florian Du G [id number] [facility]inic 09:36:00 09:36:00 Alisha MONTGOMERY 2017-06-01 2017-06-01 Outpatient Florian Brito [id number] [facility] 13:45:00 13:45:00 G Pilo MONTGOMERY 2017-05-22 2017-05-22 Outpatient Florian Brito [id number] [facility]inic 14:00:00 14:00:00 G Pilo MONTGOMERY 2017-03-30 2017-03-30 Outpatient Florian Brito [id number] [facility] 14:31:00 14:31:00 G Pilo MONTGOMERY 2017-03-27 2017-03-27 Outpatient Florian Brito [id number] [facility] 13:30:00 13:30:00 G Pilo MONTGOMERY 2016-06-12 2016-06-12 [id number] Memoria 04:45:00 13:08:00 n maryann Martini 03 l [facility] 2016-06-12 2016-06-12 [facility] [id number] Memoria 04:45:00 13:08:00 n maryann Martini 03 l [facility] 2016-06-11 2016-06-12 Outpatient [place], [facility] [id number] 23:45:00 08:08:00 Esohe Carol 03 2012-09-25 2012-09-25 OD [facility] [id number] Memoria 12:38:00 12:38:00 00 ej Martini 2012-09-25 2012-09-25 OD [facility] [id number] Memoria 12:38:00 12:38:00 00 ej Martini Results This patient has no known results. Notes Date/Time Note Provider Source 2017-04-24 Clinical Indication: - Z36 E ncounter for screening of mother. [facility] Outpatient Imaging 13:06:05-00:00 Comparison: None. [facility] TECHNIQUE: Obstetrical ultra sound is performed with pratt scale and M-mode imaging. IMPRESSION: Please see the [facility]-generated obstetrical ultrasound report for this examination. This [...] on the clinical development during . SL: [id number] 2017-04-24 Clinical Indication: - Z36 E ncounter for screening of mother. [facility] Outpatient Imaging 13:06:05-00:00 Comparison: None. [facility] TECHNIQUE: Obstetrical ultra sound [...] on the clinical development during . SL: [id number] 2017-04-24 Clinical Indication: - Z36 E ncounter for screening of mother. [facility] Outpatient Imaging 13:06:05-00:00 Comparison: None. [facility] TECHNIQUE: Obstetrical ultra sound [...] on the clinical development during . SL: [id number]
[2023-04-27] MEDS ORDERED: KETOROLAC 30 MG/ML INJ ONE (14:17)
[2023-04-27 14:40] LABS: SARS-CoV-2 Antigen Rapid Res Negative (Negative)
--- NOTE | 2023-04-27 14:55 | ER ---
Nurse's Notes [facility] Name: Yasmin Walker Age: 27 yrs Sex: Female : 1995 Arrival Date: 04/27/2023 Time: 13:30 Bed 9 Private MD: Diagnosis: Streptococcal pharyngitis Presentation: 04/27 13:55 Chief complaint: Patient states: came here last night but left before being seen. C/O ko1 body aches, sore throat, headache, hurts to breathe, tmax 103 at home. Coronavirus screen: chills, congestion, cough unrelated to allergies, fever, headache, muscle pain, runny nose, sore throat. Ebola Screen: No symptoms or risks identified at this time. Initial Sepsis Screen: Does the patient meet any 2 criteria? No. Patient's initial sepsis screen is negative. Does the patient have a suspected source of infection? No. Patient's initial sepsis screen is negative. Risk Assessment: Do you want to hurt yourself or someone else? Patient reports no desire to harm self or others. Onset of symptoms was April 26, 2023 at 18:00. 13:55 Method Of Arrival: Ambulatory ko1 13:55 Acuity: RICO 4 ko1 Triage Assessment: 13:59 General: Appears in no apparent distress. Behavior is calm, cooperative, appropriate ko1 for age. Pain: Complains of pain in generalized body aches, sore throat. EENT: Reports difficulty swallowing nasal congestion nasal discharge. Historical: - Allergies: 13:59 No Known Allergies; ko1 - Home Meds: 13:59 None [Active]; ko1 - PMHx: 13:59 Asthma; ko1 - Immunization history:: Adult Immunizations up to date. - Social history:: Smoking status: Patient denies any tobacco usage or history of. - Family history:: not pertinent. Screenin:10 [facility] ED Fall Risk Assessment (Adult) History of falling in the last 3 months, kb3 including since admission No falls in past 3 months (0 pts). Abuse screen: Denies threats or abuse. Denies injuries from another. Nutritional screening: No deficits noted. Tuberculosis screening: No symptoms or risk factors identified. Assessment: 14:50 General: Appears in no apparent distress. comfortable, Reports chills for fever for kb3 feeling ill for fatigue for 1-2 days. Pain: Complains of pain in uvula, left aspect of posterior pharynx and right aspect of posterior pharynx Pain does not radiate. Pain currently is 8 out of 10 on a pain scale. Quality of pain is described as burning, sharp, stinging, Pain began 2-3 days ago. Is continuous. Respiratory: No deficits noted. Airway is patent Respiratory effort is even, unlabored, Breath sounds are clear. EENT: Throat is reddened has patchy exudate has enlarged tonsils. Vital Signs: 13:55 BP 119 / 75; Pulse 86; Resp 18; Temp 99.8(O); Pulse Ox 100% ; Weight 79.38 kg; Height 5 ko1 ft. 3 in. ; 15:10 BP 119 / 80; Pulse 78; Resp 18; Temp 99; Pulse Ox 98% ; Pain 7/10; kb3 13:55 Body Mass Index 31.00 (79.38 kg, 160.02 cm) ko1 15:10 Pain Scale: Adult kb3 ED Course: 13:34 Patient arrived in ED. ts1 13:51 Hemant Mabry MD is Attending Physician. rt 13:59 Triage completed. ko1 13:59 Arm band placed on right wrist. Patient placed in waiting room, Patient notified of ko1 wait time. 14:10 SARS RAPID Sent. ko1 14:10 Influenza Screen (a \T\ B) Sent. ko1 14:10 Strep Sent. ko1 14:50 Patient has correct armband on for positive identification. Bed in low position. Call kb3 light in reach. Provided Education on: Awaiting results for disposition. 14:50 No provider procedures requiring assistance completed. Patient did not have IV access kb3 during this emergency room visit. 14:51 Patient placed in an exam room, on a stretcher. ld1 Administered Medications: 14:10 Drug: Ketorolac IM 15 mg Route: IM; Site: right deltoid; ko1 15:17 Follow up: Response: No adverse reaction; Pain is decreased kb3 Medication: 15:10 VIS not applicable for this client. kb3 Outcome: 14:54 Discharge ordered by . rt 15:16 Discharged to home ambulatory, with family. kb3 15:16 Condition: stable 15:16 Discharge instructions given to patient, family, Instructed on discharge instructions, follow up and referral plans. medication usage, Demonstrated understanding of instructions, follow-up care, medications, Prescriptions given X 1. 15:18 Patient left the ED. kb3 Signatures: Nneka Chinchilla RN RN ld1 Chichi Mccord RN RN kb3 Fara Suh, TYRESE RN ko1 Hemant Mabry MD MD rt Rachel Orozco, ELEN PAS ts1 Corrections: (The following items were deleted from the chart) 14:00 13:59 PSHx: Appendectomy; ko1 ko1 15:14 15:13 General: Appears in no apparent distress. comfortable, Reports chills for fever kb3 for feeling ill for fatigue for 1-2 days, kb3 15: 15:13 Pain: Complains of pain in uvula, left aspect of posterior pharynx and right kb3 aspect of posterior pharynx Pain does not radiate. Pain currently is 8 out of 10 on a pain scale. Quality of pain is described as burning, sharp, stinging, Pain began 2-3 days ago. Is continuous, kb3 15: 15:13 Respiratory: No deficits noted. Airway is patent Respiratory effort is even, kb3 unlabored, Breath sounds are clear kb3 15: 15:13 EENT: Throat is reddened has patchy exudate has enlarged tonsils kb3 kb3
--- NOTE | 2023-04-27 14:55 | EDPHYS ---
Physician Documentation [facility] Name: Yasmin Walker Age: 27 yrs Sex: Female : 1995 Arrival Date: 04/27/2023 Time: 13:30 Bed 9 Private MD: ED Physician Hemant Mabry HPI: 04/27 15:15 This 27 yrs old Female presents to ER via Ambulatory with complaints of rt General Weakness, Sore Throat. 15:15 Patient presents to the ED with 1 day of sore throat, body aches, fever. She reports a rt mild cough. Denies other acute complaints at this time. Symptoms are moderate in severity, aching nature, nonradiating, no other aggravating alleviating factors.. Historical: - Allergies: 13:59 No Known Allergies; ko1 - Home Meds: 13:59 None [Active]; ko1 - PMHx: 13:59 Asthma; ko1 - Immunization history:: Adult Immunizations up to date. - Social history:: Smoking status: Patient denies any tobacco usage or history of. - Family history:: not pertinent. ROS: 15:15 Cardiovascular: Negative for chest pain, palpitations, and edema, Respiratory: Negative rt for shortness of breath, cough, wheezing, and pleuritic chest pain, Abdomen/GI: Negative for abdominal pain, nausea, vomiting, diarrhea, and constipation, Skin: Negative for injury, rash, and discoloration, Neuro: Negative for headache, weakness, numbness, tingling, and seizure, Psych: Negative for depression, anxiety, suicide ideation, homicidal ideation, and hallucinations. 15:15 Constitutional: Positive for body aches, fever. 15:15 ENT: Positive for sore throat, Negative for rhinorrhea. Exam: 15:15 Constitutional: This is a well developed, well nourished patient who is awake, alert, rt and in no acute distress. Head/Face: Normocephalic, atraumatic. Chest/axilla: Normal chest wall appearance and motion. Nontender with no deformity. No lesions are appreciated. Cardiovascular: Regular rate and rhythm with a normal S1 and S2. No gallops, murmurs, or rubs. Normal PMI, no JVD. No pulse deficits. Respiratory: Lungs have equal breath sounds bilaterally, clear to auscultation and percussion. No rales, rhonchi or wheezes noted. No increased work of breathing, no retractions or nasal flaring. Abdomen/GI: Soft, non-tender, with normal bowel sounds. No distension or tympany. No guarding or rebound. No evidence of tenderness throughout. Skin: Warm, dry with normal turgor. Normal color with no rashes, no lesions, and no evidence of cellulitis. MS/ Extremity: Pulses equal, no cyanosis. Neurovascular intact. Full, normal range of motion. Neuro: Awake and alert, GCS 15, oriented to person, place, time, and situation. Cranial nerves II-XII grossly intact. Motor strength 5/5 in all extremities. Sensory grossly intact. Cerebellar exam normal. Normal gait. Psych: Awake, alert, with orientation to person, place and time. Behavior, mood, and affect are within normal limits. 15:15 ENT: Mild posterior pharyngeal erythema without exudates or tonsillar hypertrophy, uvula is midline. Vital Signs: 13:55 BP 119 / 75; Pulse 86; Resp 18; Temp 99.8(O); Pulse Ox 100% ; Weight 79.38 kg; Height 5 ko1 ft. 3 in. ; 15:10 BP 119 / 80; Pulse 78; Resp 18; Temp 99; Pulse Ox 98% ; Pain 7/10; kb3 13:55 Body Mass Index 31.00 (79.38 kg, 160.02 cm) ko1 15:10 Pain Scale: Adult kb3 MDM: 14:02 Patient medically screened. rt 15:15 Differential diagnosis: Flu, strep, URI. Data reviewed: vital signs, nurses notes. Test rt considered but Not performed: CT: No clinical signs or symptoms to suggest RPA, MANAGER REVIEW, Kady's angina, CT scan not indicated. Care significantly affected by the following chronic conditions: Asthma. Response to treatment: the patient's symptoms have mildly improved after treatment. 04/27 14:03 Order name: Strep; Complete Time: 14:46 rt 04/27 14:03 Order name: Influenza Screen (a \T\ B); Complete Time: 14:46 rt 04/27 14:03 Order name: SARS RAPID; Complete Time: 14:46 rt Administered Medications: 14:10 Drug: Ketorolac IM 15 mg Route: IM; Site: right deltoid; ko1 15:17 Follow up: Response: No adverse reaction; Pain is decreased kb3 Disposition Summary: 04/27/23 14:54 Discharge Ordered Location: Home rt Problem: new rt Symptoms: are unchanged rt Condition: Stable rt Diagnosis - Streptococcal pharyngitis rt Followup: rt - With: Private Physician - When: 2 - 3 days - Reason: Discharge Instructions: - Discharge Summary Sheet rt - Strep Throat, Adult rt Forms: - Work release form kb3 - Medication Reconciliation Form rt - Thank You Letter rt - Antibiotic Education rt - Prescription Opioid Use rt - Patient Portal Instructions rt - Leadership Thank You Letter rt Prescriptions: - Amoxicillin 875 mg Oral Tablet - take 1 tablet by ORAL route every 12 hours for 10 days; 20 tablet; Refills: 0, rt Product Selection Permitted Signatures: Dispatcher [employer] Fara Uriarte RN RN ko1 Hemant Mabry MD MD rt Chichi Mccord RN kb3 Corrections: (The following items were deleted from the chart) 14:00 13:59 PSHx: Appendectomy; ko1 ko1
[2023-04-27 15:34] VITALS: BP 119/80; TEMP 99; O2SAT 98
== END 2023-04-27 15:18 | disposition home or self-care (01) ==
LOC: ER 13:30
DX: J02.0 Streptococcal pharyngitis (principal); Z20.822 Contact with and (suspected) exposure to COVID-19
CPT/HCPCS: 36415; 87081; 87804; 87811; 96372; 99284

== ENCOUNTER 2023-04-28 10:20 | Emergency (ER) | payer OTHER ==
--- OUTSIDE RECORDS SUMMARY | 2023-04-28 10:24 | XMS REPORT | Continuity of Care Document ---
:1995 Author Organization [facility] Address [address] [place] [address] [place] [id number] Care Team Providers Name Role Phone JOAN GOMEZ Attending Clinician Unavailable FILI BOSTON Attending Clinician Unavailable TOMA ELIZONDO Attending Clinician Unavailable Bell Aquino Attending Clinician Bell Aquino Admitting Clinician Payers Payer Name Policy Type Policy Number Effective Date Expiration Date [facility] [id number] 2018 [facility] MEDICAID 00:00:00 Problems Condition Condition Condition Status Onset Resolution Last Treating Co mments Source Name Details Category Date Date Treatment Clinician Date BACK PAIN BACK PAIN Diagnosis Active 2015-082016-06-12 Memoria Active 0 21:48:00 l 06/11/2016 00:00: Harshil luo 00 [facility] PRE ADMIT PRE Diagnosis Active 2013-082014-10-17 Memoria ADMIT 08-28 15:57:00 l Active 00:00: Vini 06/28/2014 00 [facility] V28.81 - V28.81 - Diagnosis Active 2012-09-25 Memoria SCRN SCRN 09-14 12:47:00 l AJITH AJITH 00:01: Vini Active 00 09/14/2012 [facility] Urinary Diagnosis Active [...] , UNSP, , UNSP, UNSP UNSP Active [facility] Encounter Encounter Problem Active 2017-04-05 Memoria for for 02:45:25 l supervisio supervisio Jason deleon n of n of normal normal first first , , unspecifie unspecifie d d trimester trimester Active Problem 04/05/2017 Florian Daigle Patient Patient Problem Resolve 2016-06-15 2016-06-15 Memoria currently currently d 3-19 00:21:44 00:21:44 l 00:00: Harshil luo (finding) (finding) 00 Resolved 10/30/2013 Problem 06/15/2016 [facility] Allergies, Adverse Reactions, Alerts Allergy Allergy Status Severity Reaction(s) Onset Inactive Treating Comm ents Source Name Type Date Date Clinician N.K.D.A. N.K.D.A. Active Info Not 2016-08 Erick madai Available 0-19 l 00:00: Vini 00 NO KNOWN Drug Active [facility] Social History Smoking Status Start Date Stop Date Source Social History [facility] Medications Ordered Filled Start Stop Current Ordering Indication Dosage Frequency Signature Comments Components Source Medication Medication Date Date Medication? Clinician (SIG) Name Name Vitafol-One 2016-08 Yes Florian G 1 capsule Memoria 2-29 Schettler l 03:45: [place] 32 Vitafol-One 2016-08 Yes Florian G 1 capsule Memoria 2-29 Schettler l 03:45: [place] 32 Vitafol-One 2016-08 Yes Florian G 1 capsule Memoria 2-29 Schettler l 03:45: Vini 32 Vitafol-One 2016-08 Yes Florian G 1 capsule Memoria 2-29 Schettler l 03:45: Vini 32 Vitafol-One Yes Florian G 1 capsule Memoria 823 Schettler l 02:45: [place] Vitafol-One Yes Florian G 1 capsule Memoria 823 Schettler l 02:45: Vini Vitafol-One Yes Florian G 1 capsule Memoria 8 Schettler l 02:45: Vini 25 Vitafol-One Yes Florian G 1 capsule Memoria 8-23 Schettler l 02:45: [place] 25 Triamcinolo 2017-0 Yes Florian G 1 Memoria ne 8-17 Schettler applicatio l Acetonide 00:00: n to [place] 00 affected area Nystatin 2017-0 Yes Florian [...] Schettler applicatio l 00:00: n to Vini affected area Triamcinolo 2017-0 Yes Florian G 1 Memoria ne 8-17 Schettler applicatio l Acetonide 00:00: n to Vini 00 affected area Nystatin 2017-0 Yes Florian G 1 Mem oria 8-17 Schettler applicatio l 00:00: n to [place] affected area Vitafol-One 2017-0 Yes Florian G 1 capsule Memoria 8-14 Schettler l 00:00: Vini Vitafol-One 2017-0 Yes Florian G 1 capsule Memoria 8-14 Schettler l 00:00: Vini Cephalexin 2017-0 Yes Florian G 1 capsule Memoria 8-14 Schettler l 00:00: Vini Vitafol-One 2017-0 Yes Florian G 1 capsule Memoria 8-14 Schettler l 00:00: Vini Vitafol-One 2017-0 Yes Florian G 1 capsule Memoria 8-14 Schettler l 00:00: Vini Cephalexin 2017-0 Yes Florian G 1 capsule Memoria 8-14 Schettler l 00:00: [place] Vitafol-One 2017-0 Yes Florian G 1 capsule Memoria 8-14 Schettler l 00:00: Vini Vitafol-One 2017-0 Yes Florian G 1 capsule Memoria 8-14 Schettler l 00:00: Vini Cephalexin 2016-0 Yes Florian G 1 capsule Memoria 8-14 Schettler l 00:00: [place] Vitafol-One 2017-0 Yes Florian G 1 capsule Memoria 8-14 Schettler l 00:00: [place] Vitafol-One 0 Yes Florian G 1 capsule Memoria 8-14 Schettler l 00:00: Vini Cephalexin 2016-0 Yes Florian G 1 capsule Memoria 8-14 Schettler l 00:00: [place] PNV-Total 2015-08 Yes 1 cap, PO, Me moria 0-30 Daily, 0 l 10:30: Refill(s) Vini PNV-Total 2015-08 Yes 1 cap, PO, Me moria 0-30 Daily, 0 l 10:30: Refill(s) [place] PNV-Total 2015-08 Yes 1 cap, PO, Me moria 0-30 Daily, 0 l 10:30: Refill(s) [place] PNV-Total 2015-08 Yes 1 cap, PO, Me moria 0-30 Daily, 0 l 10:30: Refill(s) [place] 00 Calcium 2015-08 No 1,000 mL, Memor ia Chloride 0-30 Rate: 125 l 0.0014 05:41: ml/hr, Vini MEQ/ML / 00 Infuse Potassium over: 8 Chloride hr, Route: 0.004 IV, Total MEQ/ML / Volume: Sodium 1,000, Chloride Start 0.103 date: MEQ/ML / 06/12/16 Sodium 0:41:00 Lactate CDT, 0.028 Duration: MEQ/ML 30 day, Injectable Stop date: Solution 07/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 2015-08 No 1,000 mL, Memor ia Chloride 0-30 Rate: 125 l 0.0014 05:41: ml/hr, Vini MEQ/ML / 00 Infuse Potassium over: 8 Chloride hr, Route: 0.004 IV, Total MEQ/ML / Volume: Sodium 1,000, Chloride Start 0.103 date: MEQ/ML / 06/12/16 Sodium 0:41:00 Lactate CDT, 0.028 Duration: MEQ/ML 30 day, Injectable Stop date: Solution 07/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 2015-08 No 1,000 mL, Memor ia Chloride 0-30 Rate: 125 l 0.0014 05:41: ml/hr, Vini MEQ/ML / 00 Infuse Potassium over: 8 Chloride hr, Route: 0.004 IV, Total MEQ/ML / Volume: Sodium 1,000, Chloride Start 0.103 date: MEQ/ML / 06/12/16 Sodium 0:41:00 Lactate CDT, 0.028 Duration: MEQ/ML 30 day, Injectable Stop date: Solution 07/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 2015-08 No 1,000 mL, Memor ia Chloride 0-30 Rate: 125 l 0.0014 05:41: ml/hr, [place] MEQ/ML / 00 Infuse Potassium over: 8 Chloride hr, Route: 0.004 IV, Total MEQ/ML / Volume: Sodium 1,000, Chloride Start 0.103 date: MEQ/ML / 06/12/16 Sodium 0:41:00 Lactate CDT, 0.028 Duration: MEQ/ML 30 day, Injectable Stop date: Solution 07/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 Signs Vital Name Observation Time Observation Value Comments Source Weight 2017-03-27 18:30:00 [facility] [place] Height 2017-03-27 18:30:00 [facility] [place] Diastolic (mm Hg) 2017-03-27 18:30:00 Mem orial Vini Systolic (mm Hg) 2017-03-27 18:30:00 Erick rial [place] Respitory Rate 2016-06-12 12:50:00 Memori al Vini Systolic (mm Hg) 2016-06-12 12:50:00 Erick rial [place] Diastolic (mm Hg) 2016-06-12 12:50:00 Mem orial Vini Respitory Rate 2016-06-12 10:00:00 Memori al [place] Weight 2016-06-12 05:41:00 [facility] [place] BMI Calculated 2016-06-12 05:41:00 Memori al [place] Height 2016-06-12 05:41:00 160.02 cm [facility]ini Systolic (mm Hg) 2016-06-12 04:40:00 Erick madaiej Vini Diastolic (mm Hg) 2016-06-12 04:40:00 Mem orial Vini Procedures Procedure Date / Time Performed Performing Clinician Emma aster Appendix operation 2013-08-14 00:00:00 Ravi Vini Encounters Start End Encounter Admission Attending Care Care Encounter Source Date/Time Date/Time Type Type Clinicians Facility Department ID 2021-06-13 Outpatient [facility] [id number] Univers 05:28:11 ity [facility] 2021-06-10 Emergency [facility] [id number] Univers 22:06:49 ity [facility] 2020-10-19 2020-10-19 Outpatient R GOMEZ, [facility] [id number] Univers 07:45:00 07:45:00 ROSHUNDA ity o f [facility] 2020-10-12 2020-10-12 Outpatient R GOMEZ, [facility] [id number] Univers 10:45:00 10:45:00 ROSHUNDA ity o f [facility] 2020-10-02 2020-10-02 Outpatient R AKINSIPE [facility] [id number] Univers 11:00:00 11:00:00 FILI ity o f [facility] 2020-09-25 2020-09-25 Outpatient R PATRICIA [facility] [id number] Univers 10:00:00 10:00:00 ROSHUNDA ity o f [facility] 2020-09-18 2020-09-18 Outpatient R [facility] [id number] Univers 08:30[facility] 2020-09-11 Outpatient R PATRICIA [facility] [id number] Univers 10:15:00 10:15:00 ROSHUNDA ity o f [facility] 2020-09-10 2020-09-10 Outpatient P [facility] [id number] Univers 15:15:00 [facility] 2020-08-25 Outpatient R PATRICIA [facility] [id number] Univers 15:00:00 15:00:00 ROSHUNDA ity o f [facility] 2020-08-17 2020-08-17 Outpatient P [facility] [id number] Univers 08:00:00 08:00:00 ity [facility] 2020-08-10 2020-08-10 Outpatient R PATRICIA [facility] [id number] Univers 15:45:00 15:45:00 JOAN rebollar o karly [facility] 2020-08-03 2020-08-03 Outpatient R GOMEZ, [facility] [id number] Univers 14:30:00 14:30:00 JOAN rebollar o karly [facility] 2020-07-24 2020-07-24 Outpatient R AKINSIPE, [facility] [id number] Univers 09:30:00 09:30:00 FILI rebollar o karly [facility] 2020-07-23 2020-07-23 Outpatient P [facility] [id number] Univers 10:15:00 10:15:00 [facility] 2020-07-22 2020-07-22 Outpatient P [facility] [id number] Univers 15:00:00 15:00:00 ity [facility] 2020-07-16 2020-07-16 Outpatient R MIKHAIL [facility] [id number] Univers 13:00:00 13:00:00 TOMA osman [facility] 2020-06-24 2020-06-24 Outpatient P [facility] [id number] Univers 13:00:00 13:00:00 [facility] 2020-06-19 2020-06-19 [facility] [id number] Univers 16:00:00 16:00:00 TOMA rebollar [facility] 2020-06-10 2020-06-10 Outpatient R GOMEZ, [facility] [id number] Univers 09:15:00 09:15:00 JOAN rebollar o karly [facility] 2020-06-08 2020-06-08 Outpatient R GOMEZ, [facility] [id number] Univers 13:15:00 13:15:00 JOAN almaguery o karly [facility] 2020-05-29 2020-05-29 Outpatient R AKINSIYSABEL, [facility] [id number] Univers 15:45:00 15:45:00 FILI rebollar o karly [facility] 2020-05-22 2020-05-22 Outpatient R AKINSIPE, [facility] [id number] Univers 13:00:00 13:00:00 FILI rebollar o karly [facility] 2020-05-19 2020-05-19 Outpatient Margarita GOMEZ, [facility] [id number] Univers 15:00:00 15:00:00 JOAN rebollar o karly [facility] 2020-05-14 2020-05-14 Outpatient Margarita GOMEZ [facility] [id number] Univers 13:30:00 13:30:00 JOAN brandt [facility] 2020-05-08 2020-05-08 Outpatient P [facility] [id number] Univers 15:00:00 15:00:00 ity [facility] 2020-04-16 2020-04-16 Outpatient Margarita GOMEZ [facility] [id number] Univers 13:00:00 13:00:00 JOAN brandt [facility] 2017-09-29 2017-09-29 Outpatient Florian Florian G [id number] [facility] 12:38:00 12:38:00 Alisha MONTGOMERY 2017-08-10 2017-08-10 Outpatient Florian Florian G [id number] [facility]Clinic 09:36:00 09:36:00 Alisha MONTGOMERY 2017-06-01 2017-06-01 Outpatient Florian Florian G [id number] [facility] 13:45:00 13:45:00 Alisha MONTGOMERY 2017-05-22 2017-05-22 Outpatient Florian Florian G [id number] [facility]inic 14:00:00 14:00:00 Alisha MONTGOMERY 2017-03-30 2017-03-30 Outpatient Florian Florian G [id number] [facility]inic 14:31:00 14:31:00 Alisha MONTGOMERY 2017-03-27 2017-03-27 Outpatient Florian Florian G [id number] [facility]inic 13:30:00 13:30:00 G Marbellahermann alWo rks Pilo MONTGOMERY 2016-06-12 2016-06-12 [facility] [id number] Memoria 04:45:00 13:08:00 n r Vini 03 l [facility] 2016-06-12 2016-06-12 Observatio nullFlavo [facility] [id number] Memoria 04:45:00 13:08:00 n r Vini 03 l [facility] 2016-06-11 2016-06-12 Outpatient Ohuoba, [facility] [id number] 23:45:00 08:08:00 Esohe Carol 03 2012-09-25 2012-09-25 OD PARI PARI [id number] Memoria 12:38:00 12:38:00 00 l Vini 2012-09-25 2012-09-25 OD IE IE [id number] Memoria 12:38:00 12:38:00 00 l Vini Results This patient has no known results. Notes Date/Time Note Provider Source 2017-04-24 Clinical Indication: - Z36 E ncounter for screening of mother. [facility] Outpatient Imaging 13:06:05-00:00 Comparison: None. [facility] TECHNIQUE: Obstetrical ultra sound is performed [...] on the clinical development during . SL: [id number] 2017-04-24 Clinical Indication: - Z36 E ncounter for screening of mother. [facility] Outpatient Imaging 13:06:05-00:00 Comparison: None. [facility] TECHNIQUE: Obstetrical ultra sound is performed [...] on the clinical development during . SL: [id number] 2017-04-24 Clinical Indication: - Z36 E ncounter for screening of mother. [facility] Outpatient Imaging 13:06:05-00:00 Comparison: None. [facility] TECHNIQUE: Obstetrical ultra sound is performed with [...] on the clinical development during . SL: [id number] 2017-04-24 Clinical Indication: - Z36 E ncounter for screening of mother. [facility] Outpatient Imaging 13:06:05-00:00 Comparison: None. [facility] TECHNIQUE: Obstetrical ultra sound is performed with [...] on the clinical development during . SL: [id number]
[2023-04-28] MEDS ORDERED: CLINDAMYCIN 900MG/D5W 900 MG/50 ML IVPB IV ONE (11:06)
[2023-04-28] MEDS ORDERED: dexAMETHasone 10 MG/ML VIAL ONE (11:06)
[2023-04-28] MEDS ORDERED: NA CHLORIDE 0.9% 1,000 ML ONE (11:06)
[2023-04-28] MEDS ORDERED: ONDANSETRON 4 MG/2 ML VIAL ONE (11:06)
[2023-04-28] MEDS ORDERED: FENTANYL CITR 100 MCG/2 ML ONE (11:06)
[2023-04-28] MEDS ORDERED: KETOROLAC 30 MG/ML INJ ONE (11:06)
--- NOTE | 2023-04-28 11:28 | RAD REPORT ---
EXAM DESCRIPTION: CT - Soft Tissue Neck W/Contr CLINICAL HISTORY: Pain;Sore throat;Swelling COMPARISON: No comparisons TECHNIQUE: Thin axial CT images of the neck, performed following intravenous administration of 100 mL Isovue-300. Multiplanar reformats were generated and reviewed. All CT scans are performed using dose optimization technique as appropriate and may include automated exposure control or mA/KV adjustment according to patient size. FINDINGS: Nasopharyngeal tissues are normal in appearance. Fossa Rosenmller are normal. Asymmetric mild enlargement on the right, and relative bilateral hyperenhancement of the palatine ton sils. No abnormal collections within or adjacent to the tonsils. Parapharyngeal fat planes are preser you. Tongue base structures are normal. Epiglottis and aryepiglottic folds are normal. Piriform sinuses are well aerated. The vocal cords are normal in appearance. Mildly prominent lymph nodes bilaterally, which are discrete, largest measuring 1.2 cm in short axis, likely reactive. Salivary glands are normal in appearance. Upper lung yao are clear. Included intracranial contents are unremarkable. IMPRESSION: Asymmetric mild enlargement of the right palatine tonsil without abnormal adjacent colle ctions to suggest phlegmon or abscess formation. Findings suggest tonsillitis without complications. Reactive deep cervical lymph nodes.
--- NOTE | 2023-04-28 11:56 | ER ---
Nurse's Notes [facility] Name: Yasmin Walker Age: 27 yrs Sex: Female : 1995 Arrival Date: 04/28/2023 Time: 10:20 Bed 12 Private MD: Diagnosis: Peritonsillar abscess-EARLY, PERITONSILLITIS Presentation: 04/28 10:31 Chief complaint: Patient states: Dx with strep yesterday, throat pain \T\ swelling jl7 increased. Coronavirus screen: At this time, the client does not indicate any symptoms associated with coronavirus-19. Ebola Screen: No symptoms or risks identified at this time. Initial Sepsis Screen: Does the patient meet any 2 criteria? No. Patient's initial sepsis screen is negative. Does the patient have a suspected source of infection? No. Patient's initial sepsis screen is negative. Risk Assessment: Do you want to hurt yourself or someone else? Patient reports no desire to harm self or others. Onset of symptoms is unknown. 10:31 Method Of Arrival: Ambulatory jl7 10:31 Acuity: RICO 3 jl7 Triage Assessment: 10:32 General: Appears in no apparent distress. uncomfortable, Behavior is calm, cooperative, jl7 appropriate for age. Pain: Complains of pain in throat Pain currently is 8 out of 10 on a pain scale. EENT: Throat has enlarged tonsils on right bilaterally. Neuro: Level of Consciousness is awake, alert, obeys commands, Oriented to person, place, time, situation. Cardiovascular: Patient's skin is warm and dry. Respiratory: Airway is patent Respiratory effort is even, unlabored, Respiratory pattern is regular, symmetrical. Derm: Skin is pink, warm \T\ dry. 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 - Social history:: Smoking status: Reported history of juuling and/or vaping. Screenin:08 [facility] ED Fall Risk Assessment (Adult) Score/Fall Risk Level 0 - 2 = Low Risk hb Oriented to surroundings, Maintained a safe environment, Educated pt \T\ family on fall prevention, incl call for assistance when getting out of bed. Abuse screen: Denies threats or abuse. Denies injuries from another. Nutritional screening: No deficits noted. Tuberculosis screening: No symptoms or risk factors identified. Assessment: 11:08 General: Appears in no apparent distress. Behavior is calm, cooperative. Pain: Pain hb currently is 8 out of 10 on a pain scale. Neuro: Level of Consciousness is awake, alert, obeys commands, Oriented to person, place, time, situation. Cardiovascular: Patient's skin is warm and dry. Respiratory: Respiratory effort is even, unlabored, Respiratory pattern is regular, symmetrical. GI: No signs and/or symptoms were reported involving the gastrointestinal system. : No signs and/or symptoms were reported regarding the genitourinary system. EENT: Reports severe sore throat. Derm: Skin is pink, warm \T\ dry. Musculoskeletal: No signs and/or symptoms reported regarding the musculoskeletal system. 12:00 Reassessment: Patient appears in no apparent distress at this time. Patient and/or jl7 family updated on plan of care and expected duration. Pain level reassessed. Patient is alert, oriented x 3, equal unlabored respirations, skin warm/dry/pink. Patient states feeling better. Vital Signs: 10:31 BP 130 / 72; Pulse 85; Resp 17; Temp 98.5; Pulse Ox 100% ; Weight 79.38 kg; Height 5 7 ft. 3 in. ; Pain 8/10; 13:00 BP 127 / 73; Pulse 89; Resp 15; Pulse Ox 100% ; jl7 10:31 Body Mass Index 31.00 (79.38 kg, 160.02 cm) jl7 10:31 Pain Scale: Adult jl7 ED Course: 10:24 Patient arrived in ED. mg5 10:28 Jono aGry MD is Attending Physician. albert 10:30 Gianfranco Shin RN is Primary Nurse. jl7 10:32 Triage completed. jl7 10:32 Arm band placed on right wrist. jl7 10:50 Inserted saline lock: 20 gauge in right antecubital area, using aseptic technique. hb ,using aseptic technique. by Gianfranco XIONG Blood collected. 11:08 Patient has correct armband on for positive identification. Provided Education on: hb tests. 11:11 CT Soft Tissue Neck W/contr In Process Unspecified. EDMS 11:54 Jeannette Vail MD is Referral Physician. [facility] 13:00 No provider procedures requiring assistance completed. IV discontinued, intact, jl7 bleeding controlled, No redness/swelling at site. Pressure dressing applied. Administered Medications: 11:00 Drug: NS 0.9% IV 1000 ml Route: IV; Rate: 1 bolus; Site: right antecubital; hb 12:30 Follow up: Response: No adverse reaction; IV Status: Completed infusion; IV Intake: jl7 1000ml 11:00 Drug: Decadron - Dexamethasone IVP 10 mg Route: IVP; Site: right antecubital; hb 13:03 Follow up: Response: No adverse reaction jl7 11:00 Drug: Clindamycin IVPB 900 mg Route: IVPB; Infused Over: 30 mins; Site: right hb antecubital; 11:30 Follow up: Response: No adverse reaction; IV Status: Completed infusion jl7 11:00 Drug: Ketorolac IVP 30 mg Route: IVP; Site: right antecubital; hb 11:30 Follow up: Response: No adverse reaction; Pain is decreased jl7 11:00 Drug: fentaNYL (PF) IVP 25 mcg Route: IVP; Site: right antecubital; hb 11:30 Follow up: Response: No adverse reaction; Pain is decreased jl7 11:00 Drug: Ondansetron IVP 4 mg Route: IVP; Site: right antecubital; hb 13:02 Follow up: Response: No adverse reaction jl7 12:35 Drug: Rocephin IV 2 grams Route: IV; Rate: per protocol; Site: right antecubital; jl7 12:50 Follow up: Response: No adverse reaction; IV Status: Completed infusion jl7 12:52 Not Given (none availablee): Clindamycin PO Liquid 300 mg PO once jl7 12:53 Drug: Clindamycin PO 300 mg Route: PO; jl7 13:01 Follow up: Response: Medication administered at discharge. jl7 Medication: 11:00 VIS not applicable for this client. jl7 Intake: 12:30 IV: 1000ml; Total: 1000ml. jl7 Outcome: 11:55 Discharge ordered by . [facility] 13:00 Discharged to home ambulatory. jl7 13:00 Condition: stable 13:00 Discharge instructions given to patient, Instructed on discharge instructions, follow up and referral plans. medication usage, Demonstrated understanding of instructions, follow-up care, medications, Prescriptions given X 1. 13:01 Patient left the ED. jl7 Signatures: Dispatcher [employer] EDMS Jono Gary MD MD cha Baxter, Heather, RN RN Gianfranco Childs RN RN Cheyanne Elaine mg5 Corrections: (The following items were deleted from the chart) 11:00 10:32 PSHx: None; juan m jl7
--- NOTE | 2023-04-28 11:56 | EDPHYS ---
Physician Documentation [facility] Name: Yasmin Walker Age: 27 yrs Sex: Female : 1995 Arrival Date: 04/28/2023 Time: 10:20 Bed 12 Private MD: MARIA GUADALUPE Physician Jono Gary HPI: 04/28 11:48 This 27 yrs old Female presents to ER via Ambulatory with complaints of Throat albert Swelling. 11:48 The patient presents with pain, redness, swelling. The problem is located in the right albert buccal mucosa. The problem is located in the . Onset: The symptoms/episode began/occurred 3 day(s) ago. Duration: The symptoms are continuous, and are steadily getting worse. Modifying factors: The symptoms are alleviated by. 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 - Social history:: Smoking status: Reported history of juuling and/or vaping. ROS: 11:50 Constitutional: Negative for fever, chills, and weight loss, Eyes: Negative for injury, albert pain, redness, and discharge, Neck: Negative for injury, pain, and swelling, Cardiovascular: Negative for chest pain, palpitations, and edema, Respiratory: Negative for shortness of breath, cough, wheezing, and pleuritic chest pain, Abdomen/GI: Negative for abdominal pain, nausea, vomiting, diarrhea, and constipation, Back: Negative for injury and pain, : Negative for injury, bleeding, discharge, and swelling, MS/Extremity: Negative for injury and deformity, Skin: Negative for injury, rash, and discoloration, Neuro: Negative for headache, weakness, numbness, tingling, and seizure, Psych: Negative for depression, anxiety, suicide ideation, homicidal ideation, and hallucinations, Allergy/Immunology: Negative for hives, rash, and allergies, Endocrine: Negative for neck swelling, polydipsia, polyuria, polyphagia, and marked weight changes, Hematologic/Lymphatic: Negative for swollen nodes, abnormal bleeding, and unusual bruising. 11:50 ENT: Positive for difficulty swallowing, sore throat. Exam: 11:50 Constitutional: This is a well developed, well nourished patient who is awake, alert, albert and in no acute distress. Head/Face: Normocephalic, atraumatic. Eyes: Pupils equal round and reactive to light, extra-ocular motions intact. Lids and lashes normal. Conjunctiva and sclera are non-icteric and not injected. Cornea within normal limits. Periorbital areas with no swelling, redness, or edema. Neck: Trachea midline, no thyromegaly or masses palpated, and no cervical lymphadenopathy. Supple, full range of motion without nuchal rigidity, or vertebral point tenderness. No Meningismus. Chest/axilla: Normal chest wall appearance and motion. Nontender with no deformity. No lesions are appreciated. Cardiovascular: Regular rate and rhythm with a normal S1 and S2. No gallops, murmurs, or rubs. Normal PMI, no JVD. No pulse deficits. Respiratory: Lungs have equal breath sounds bilaterally, clear to auscultation and percussion. No rales, rhonchi or wheezes noted. No increased work of breathing, no retractions or nasal flaring. Abdomen/GI: Soft, non-tender, with normal bowel sounds. No distension or tympany. No guarding or rebound. No evidence of tenderness throughout. Back: No spinal tenderness. No costovertebral tenderness. Full range of motion. Skin: Warm, dry with normal turgor. Normal color with no rashes, no lesions, and no evidence of cellulitis. MS/ Extremity: Pulses equal, no cyanosis. Neurovascular intact. Full, normal range of motion. Neuro: Awake and alert, GCS 15, oriented to person, place, time, and situation. Cranial nerves II-XII grossly intact. Motor strength 5/5 in all extremities. Sensory grossly intact. Cerebellar exam normal. Normal gait. Psych: Awake, alert, with orientation to person, place and time. Behavior, mood, and affect are within normal limits. 11:50 ENT: Mouth: Lips: moist, Oral mucosa: moist, Gums: normal with healthy appearance, Tongue: is normal, abscess, is not appreciated, Posterior pharynx: Tonsils: enlarged on the right, with erythema, with exudate, swelling, that is moderate, erythema, that is moderate, exudate, that is mild, peritonsillar mass, is not appreciated, pooling of secretions, is not appreciated, Dental exam: normal. Vital Signs: 10:31 BP 130 / 72; Pulse 85; Resp 17; Temp 98.5; Pulse Ox 100% ; Weight 79.38 kg; Height 5 [facility] ft. 3 in. ; Pain 8/10; 13:00 BP 127 / 73; Pulse 89; Resp 15; Pulse Ox 100% ; jl7 10:31 Body Mass Index 31.00 (79.38 kg, 160.02 cm) [facility] 10:31 Pain Scale: Adult [facility] MDM: 10:28 Patient medically screened. [facility] 11:51 Differential diagnosis: dental caries, dental abscess, gingivostomatitis. Data [facility] reviewed: vital signs, nurses notes, lab test result(s), radiologic studies, CT scan. Consideration of Admission/Observation Escalation of care including admission/observation considered. I considered the following discharge prescriptions or medication management in the emergency department Medications were administered in the Emergency Department. See MAR. Independent interpretation of the following test(s) in the Emergency Department CT Scan: My interpretation is CT NEG ABSCESS. Test considered but Not performed: Ultrasound NO USG. Care significantly affected by the following chronic conditions: ASTHMA. Counseling: I had a detailed discussion with the patient and/or guardian regarding the historical points, exam findings, and any diagnostic results supporting the discharge/admit diagnosis, lab results, radiology results, the need for outpatient follow up, for definitive care, an ENT specialist. 04/28 10:30 Order name: CBC with Diff [facility] 04/28 10:30 Order name: Comprehensive Metabolic Panel [facility] 04/28 10:42 Order name: CT Soft Tissue Neck W/contr; Complete Time: 11:46 albert Administered Medications: 11:00 Drug: NS 0.9% IV 1000 ml Route: IV; Rate: 1 bolus; Site: right antecubital; hb 12:30 Follow up: Response: No adverse reaction; IV Status: Completed infusion; IV Intake: jl7 1000ml 11:00 Drug: Decadron - Dexamethasone IVP 10 mg Route: IVP; Site: right antecubital; hb 13:03 Follow up: Response: No adverse reaction [facility] 11:00 Drug: Clindamycin IVPB 900 mg Route: IVPB; Infused Over: 30 mins; Site: right hb antecubital; 11:30 Follow up: Response: No adverse reaction; IV Status: Completed infusion 7 11:00 Drug: Ketorolac IVP 30 mg Route: IVP; Site: right antecubital; hb 11:30 Follow up: Response: No adverse reaction; Pain is decreased 7 11:00 Drug: fentaNYL (PF) IVP 25 mcg Route: IVP; Site: right antecubital; hb 11:30 Follow up: Response: No adverse reaction; Pain is decreased 7 11:00 Drug: Ondansetron IVP 4 mg Route: IVP; Site: right antecubital; hb 13:02 Follow up: Response: No adverse reaction jl7 12:35 Drug: Rocephin IV 2 grams Route: IV; Rate: per protocol; Site: right antecubital; jl7 12:50 Follow up: Response: No adverse reaction; IV Status: Completed infusion 7 12:52 Not Given (none availablee): Clindamycin PO Liquid 300 mg PO once 12:53 Drug: Clindamycin PO 300 mg Route: PO; jl7 13:01 Follow up: Response: Medication administered at discharge. jl7 Disposition Summary: 04/28/23 11:55 Discharge Ordered Location: Home albert Problem: new albert Symptoms: have improved albert Condition: Stable albert Diagnosis - Peritonsillar abscess - EARLY, PERITONSILLITIS albert Followup: albert - With: Private Physician - When: 2 - 3 days - Reason: Recheck today's complaints, Continuance of care, Re-evaluation by your physician Followup: albert - With: Jeannette Vail MD - When: 2 - 3 days - Reason: Recheck today's complaints, Continuance of care, Re-evaluation by your physician Discharge Instructions: - Discharge Summary Sheet albert - Peritonsillar Abscess albert - Pharyngitis albert - Pharyngitis, [id number] albert - Peritonsillar Abscess, [id number]-[id number] albert - Peritonsillar Cellulitis albert Forms: - Medication Reconciliation Form albert - Thank You Letter albert - Antibiotic Education albert - Prescription Opioid Use albert - Patient Portal Instructions albert - Leadership Thank You Letter albert - Work release form jl7 Prescriptions: - Clindamycin HCl 300 mg Oral Capsule - take 1 capsule by ORAL route every 6 hours for 10 days; 40 capsule; Refills: 0, albert Product Selection Permitted Signatures: Dispatcher [employer] EDMS Jono Gary MD MD cha Baxter, Heather, RN RN Gianfranco Shin RN RN jl7 Corrections: (The following items were deleted from the chart) 11:00 10:32 PSHx: None; jl7 jl7 12:45 10:43 Test, Urine+UC.LAB.BRZ ordered. EDMS EDMS 12:46 10:43 Urinalysis+U.LAB.BRZ ordered. EDMS EDMS
[2023-04-28] MEDS ORDERED: NA CHLORIDE 0.9% 100 ML ONE (12:32)
[2023-04-28] MEDS ORDERED: CEFTRIAXONE 1000 MG/VIAL ONE (12:32)
[2023-04-28 13:20] VITALS: TEMP 98.5; O2SAT 100
[2023-04-28 13:24] LABS: Absolute Lymphocytes (CBC) 1.5 K/uL (0.7-4.9); Hematocrit 34.6 % (36.0-45.0); MCV 91.1 fL (80-100); MPV 7.3 fL (7.6-11.3); Platelets 240 thou/uL (152-406)
[2023-04-28 13:26] VITALS: BP 127/73
[2023-04-28 13:34] LABS: Albumin 3.4 g/dL (3.4-5.0); Bilirubin Total 0.4 mg/dL (0.2-1.0); Potassium 3.3 mEq/L (3.5-5.1); Protein, Total 7.3 g/dL (6.4-8.2)
== END 2023-04-28 13:01 | disposition home or self-care (01) ==
LOC: ER 10:20
DX: J36 Peritonsillar abscess (principal)
CPT/HCPCS: 96365; 96361; 85025; 36415; 80053; 70491; 96375; 99284; Q9967; J3010; J1100; J2405; J7030; J0696

== ENCOUNTER 2023-07-26 17:51 | Emergency (ER) | payer OTHER ==
[2023-07-26 19:31] LABS: SARS-COV-2 RT PCR NEGATIVE (NEGATIVE)
--- NOTE | 2023-07-26 19:34 | ER ---
Nurse's Notes [facility] Name: Yasmin Walker Age: 27 yrs Sex: Female : 1995 Arrival Date: 07/26/2023 Time: 17:51 Bed 9 Private MD: Diagnosis: Acute upper respiratory infection, unspecified Presentation: 07/26 17:57 Chief complaint: Patient states: cough, congestion, chills and body aches X2 days. cm10 Coronavirus screen: Vaccine status: Patient reports being unvaccinated. Client denies travel out of the [place] in the last 14 days. Ebola Screen: Patient denies travel to an Ebola-affected area in the 21 days before illness onset. No symptoms or risks identified at this time. Initial Sepsis Screen: Does the patient meet any 2 criteria? No. Patient's initial sepsis screen is negative. Does the patient have a suspected source of infection? No. Patient's initial sepsis screen is negative. Risk Assessment: Do you want to hurt yourself or someone else? Patient reports no desire to harm self or others. Onset of symptoms was July 26, 2023. 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 - Social history:: Smoking status: Patient denies any tobacco usage or history of. Screenin:54 [facility] ED Fall Risk Assessment (Adult) History of falling in the last 3 months, tl4 including since admission No falls in past 3 months (0 pts) Confusion or Disorientation No (0 pts) Intoxicated or Sedated No (0 pts) Impaired Gait No (0 pts) Mobility Assist Device Used No (0 pt) Altered Elimination No (0 pt) Score/Fall Risk Level 0 - 2 = Low Risk. Abuse screen: Denies threats or abuse. Denies injuries from another. Nutritional screening: No deficits noted. Tuberculosis screening: No symptoms or risk factors identified. Assessment: 18:54 General: Appears in no apparent distress. Behavior is calm, cooperative, Reports chills tl4 for fever for feeling ill for. Pain: Denies pain. Neuro: No deficits noted. Cardiovascular: No deficits noted. Respiratory: No deficits noted. Respiratory: Reports cough that is. EENT: Reports nasal congestion. Vital Signs: 17:57 BP 125 / 76; Pulse 82; Resp 16; Temp 98.6; Pulse Ox 100% on R/A; Weight 81.65 kg; cm10 Height 5 ft. 3 in. ; Pain 6/10; 17:57 Body Mass Index 31.89 (81.65 kg, 160.02 cm) cm10 17:57 Pain Scale: Adult cm10 ED Course: 17:53 Patient arrived in ED. mg5 17:54 Pascale Fitzgerald F[facility]-C [facility]. kb 17:54 Jono Gary MD is Attending Physician. kb 17:57 Triage completed. cm10 17:58 Arm band placed on Patient placed in an exam room, on a stretcher. cm10 18:41 Khurram Barros is Primary Nurse. tl4 18:42 COVID-19/FLU A+B/RSV Sent. tl4 18:55 Patient has correct armband on for positive identification. Bed in low position. Call tl4 light in reach. Side rails up X2. Provided Education on: ED process, medications. 18:55 No provider procedures requiring assistance completed. Patient did not have IV access tl4 during this emergency room visit. Administered Medications: No medications were administered Medication: 18:56 VIS not applicable for this client. tl4 Outcome: 19:33 Discharge ordered by MD. kb 19:47 Discharged to home ambulatory, cm10 19:47 Condition: good 19:47 Discharge instructions given to patient, Instructed on discharge instructions, follow up and referral plans. Demonstrated understanding of instructions, follow-up care, 19:47 Patient left the ED. cm10 Signatures: Pascale Fitzgerald FNP-C FNP-Ckb Martinez, Clarissa, RN RN Cheyanne Diaz mg5 Khurram Barros tl4
--- NOTE | 2023-07-26 19:34 | EDPHYS ---
Physician Documentation [facility] Name: Yasmin Walker Age: 27 yrs Sex: Female : 1995 Arrival Date: 07/26/2023 Time: 17:51 Bed 9 Private MD: ED Physician Jono Gary HPI: 07/26 19:32 This 27 yrs old Female presents to ER via Ambulatory with complaints of Cold kb Symptoms. 19:32 Patient is a 27-year-old female who presents for cough, congestion, chills and body kb aches that started 2 days ago. States she was sent home from work and told that she had to be seen before she could return.. 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 - Social history:: Smoking status: Patient denies any tobacco usage or history of. ROS: 19:32 Abdomen/GI: Negative for abdominal pain, nausea, vomiting, diarrhea, and constipation, kb 19:32 Constitutional: Positive for body aches, chills, 19:32 ENT: Positive for sinus congestion, 19:32 Respiratory: Positive for cough, 19:32 All other systems are negative, Exam: 19:32 Constitutional: This is a well developed, well nourished patient who is awake, alert, kb and in no acute distress. Head/Face: Normocephalic, atraumatic. ENT: Moist Mucous membranes Cardiovascular: Regular rate Respiratory: Respirations even and unlabored. No increased work of breathing. Talking in full sentences Skin: Warm, dry with normal turgor. Normal color. MS/ Extremity: Pulses equal, no cyanosis. Neurovascular intact. Full, normal range of motion. Neuro: Awake and alert, GCS 15, oriented to person, place, time, and situation. Moves all extremities. Normal gait. Vital Signs: 17:57 BP 125 / 76; Pulse 82; Resp 16; Temp 98.6; Pulse Ox 100% on R/A; Weight 81.65 kg; cm10 Height 5 ft. 3 in. ; Pain 6/10; 17:57 Body Mass Index 31.89 (81.65 kg, 160.02 cm) cm10 17:57 Pain Scale: Adult cm10 MDM: 17:54 Patient medically screened. kb 19:32 Differential Diagnosis: Other Flu, COVID, RSV, URI. Data reviewed: vital signs, nurses kb notes. Counseling: I had a detailed discussion with the patient and/or guardian regarding the historical points, exam findings, and any diagnostic results supporting the discharge/admit diagnosis, lab results, the need for outpatient follow up, a family practitioner, to return to the emergency department if symptoms worsen or persist or if there are any questions or concerns that arise at home. 07/26 17:57 Order name: COVID-19/FLU A+B/RSV; Complete Time: 19:32 kb Administered Medications: No medications were administered Disposition Summary: 07/26/23 19:33 Discharge Ordered Notes: Location: Home kb Condition: Stable kb Diagnosis - Acute upper respiratory infection, unspecified kb Followup: kb - With: Emergency Department - When: As needed - Reason: Worsening of condition Followup: kb - With: Private Physician - When: 2 - 3 days - Reason: Recheck today's complaints, Continuance of care, Re-evaluation by your physician Discharge Instructions: - Discharge Summary Sheet kb - Upper Respiratory Infection, Adult, [id number]-[id number]-[id number] kb - Viral Respiratory Infection, [id number]-Vs-Pwtt kb Forms: - Work release form kb - Medication Reconciliation Form kb - Thank You Letter kb - Antibiotic Education kb - Prescription Opioid Use kb - Patient Portal Instructions kb - Leadership Thank You Letter kb Signatures: Dispatcher [employer] Pascale Nichole, AIRCRAFT LANDING GEAR INSPECTOR-C LASHELL-Sierra Yap, RN RN cm10
[2023-07-26 22:46] VITALS: BP 125/76; TEMP 98.6; O2SAT 100
== END 2023-07-26 19:47 | disposition home or self-care (01) ==
LOC: ER 17:51
DX: J06.9 Acute upper respiratory infection, unspecified (principal); Z11.52 Encounter for screening for COVID-19
CPT/HCPCS: 0241U

== ENCOUNTER 2023-12-07 22:17 | Emergency (ER) | payer OTHER, SELFPAY ==
[2023-12-07] MEDS ORDERED: HYDROCODONE/APAP 7.5/325 MG TAB ONE (22:42)
[2023-12-07] MEDS ORDERED: IBUPROFEN 400 MG TAB ONE (22:42)
--- NOTE | 2023-12-07 23:18 | ER ---
Nurse's Notes [facility] Name: Yasmin Walker Age: 28 yrs Sex: Female : 1995 Arrival Date: 12/07/2023 Time: 22:17 Bed 11 Private MD: Diagnosis: Nondisplaced fracture of fifth metatarsal bone, right foot Presentation: 12/06 22:23 Chief complaint: Patient states: fell getting off bed landing on right foot. heard a lg3 pop. pain /. Coronavirus screen: Client denies travel out of the [place] in the last 14 days. At this time, the client does not indicate any symptoms associated with coronavirus-19. Ebola Screen: No symptoms or risks identified at this time. Initial Sepsis Screen: Does the patient meet any 2 criteria? No. Patient's initial sepsis screen is negative. Does the patient have a suspected source of infection? No. Patient's initial sepsis screen is negative. Risk Assessment: Do you want to hurt yourself or someone else? Patient reports no desire to harm self or others. Onset of symptoms was December 07, 2023. 22:23 Method Of Arrival: Wheelchair lg3 22:23 Acuity: RICO 4 lg3 Triage Assessment: 22:25 General: Appears in no apparent distress. uncomfortable, Behavior is calm, cooperative. lg3 Pain: Complains of pain in right foot. EENT: No deficits noted. No signs and/or symptoms were reported regarding the EENT system. Neuro: No deficits noted. Nichols Agitation-Sedation Scale (RASS): 0 - Alert and Calm Level of Consciousness is awake, alert, obeys commands, Oriented to person, place, time, situation. Cardiovascular: No deficits noted. Denies chest pain, shortness of breath, Capillary refill < 3 seconds Clubbing of nail beds is absent JVD is absent Patient's skin is warm and dry. Respiratory: No deficits noted. Airway is patent Respiratory effort is even, unlabored, Respiratory pattern is regular, symmetrical. GI: No deficits noted. No signs and/or symptoms were reported involving the gastrointestinal system. : No deficits noted. No signs and/or symptoms were reported regarding the genitourinary system. Derm: No deficits noted. Skin is intact, is healthy with good turgor, Skin is dry, Skin is normal, Skin temperature is warm. Musculoskeletal: Circulation, motion, and sensation intact. Range of motion: intact in all extremities, Swelling present in right foot Reports pain in right foot. 22:25 Injury Description: right foot pain with swelling. 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 Flu vaccine is not up to date. - Infectious Disease History:: Denies. - Social history:: Smoking status: Patient denies any tobacco usage or history of. Patient/guardian denies using alcohol, street drugs. Screenin:32 [facility] ED Fall Risk Assessment (Adult) History of falling in the last 3 months, lg3 including since admission No falls in past 3 months (0 pts) Confusion or Disorientation No (0 pts) Intoxicated or Sedated No (0 pts) Impaired Gait No (0 pts) Mobility Assist Device Used No (0 pt) Altered Elimination No (0 pt) Score/Fall Risk Level 0 - 2 = Low Risk Oriented to surroundings, Maintained a safe environment, Educated pt \T\ family on fall prevention, incl call for assistance when getting out of bed, Assessed \T\ reinforced patient's understanding of fall precautions. Abuse screen: Denies threats or abuse. Denies injuries from another. Nutritional screening: No deficits noted. Tuberculosis screening: No symptoms or risk factors identified. Assessment: 22:32 General: see triage assessment . lg3 23:30 Reassessment: Patient appears in no apparent distress at this time. Patient and/or pf1 family updated on plan of care and expected duration. Pain level reassessed. Patient is alert, oriented x 3, equal unlabored respirations, skin warm/dry/pink. Vital Signs: 22:23 BP 124 / 84; Pulse 69; Resp 16 S; Temp 98.6(TE); Pulse Ox 100% on R/A; Weight 77.11 kg lg3 (R); Height 5 ft. 3 in. (R); 23:30 BP 113 / 79; Pulse 60; Resp 18; Temp 98; Pulse Ox 100% on R/A; Pain 4/10; pf1 22:23 Body Mass Index 30.11 (77.11 kg, 160.02 cm) lg3 23:30 Pain Scale: Adult pf1 ED Course: 22:20 Patient arrived in ED. ra3 22:22 Jono Van PA is PHCP. cp 22:22 Jono Gary MD is Attending Physician. cp 22:25 Triage completed. lg3 22:25 Arm band placed on right wrist. lg3 22:32 Patient has correct armband on for positive identification. Bed in low position. Call lg3 light in reach. Side rails up X 1. Client placed on continuous cardiac and pulse oximetry monitoring. NIBP monitoring applied. Door closed. Noise minimized. Warm blanket given. 22:32 Wound care: ice pack applied. lg3 22:43 Sandra Meyers, RN is Primary Nurse. lg3 22:59 XRAY Foot RIGHT 3 View In Process Unspecified. EDMS 23:17 Hernandez Valderrama MD is Referral Physician. cp 23:44 Crutch training done. Orthoglass splint: Posterior short lleg splint applied on right rv1 leg. 23:57 No provider procedures requiring assistance completed. Patient did not have IV access pf1 during this emergency room visit. 23:58 Provided Education on: ortho care and prescriptions and follow up. pf1 Administered Medications: 22:43 Drug: Ibuprofen PO 800 mg PO once Route: PO; lg3 23:30 Follow up: Response: No adverse reaction; Marked relief of symptoms; Pain is decreased pf1 22:43 Drug: Hydrocodone-Acetaminophen PO (7.5 mg-325 mg) 1 tabs PO once; RASS on ADMIN: lg3 Combtv4, Very Agttd3, Agttd2, Rstlss1, AlertClm0, Drwsy-1, Lt Sdtn-2, Mod Sdtn-3, Dp Sdtn-4, UnArsble-5 Route: PO; 23:30 Follow up: Response: No adverse reaction; Marked relief of symptoms; Pain is decreased; pf1 RASS: Alert and Calm (0) Medication: 23:58 VIS not applicable for this client. pf1 Outcome: 23:18 Discharge ordered by . cp 23:57 Discharged to home via wheelchair, with crutches, with family, pf1 23:57 Condition: improved 23:57 Discharge instructions given to patient, Instructed on discharge instructions, follow up and referral plans. Demonstrated understanding of instructions, follow-up care, medications, Prescriptions given X 2, 23:59 Patient left the ED. pf1 Signatures: Dispatcher [employer] EDMS Jono Van PA PA cp Able, Lacie, RN RN lg3 Sushila Anderson RN RN pf1 Amanda Caballero 1 Fior Tapia ra3
--- NOTE | 2023-12-07 23:18 | EDPHYS ---
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 Flu vaccine is not up to date. - Infectious Disease History:: Denies. - Social history:: Smoking status: Patient denies any tobacco usage or history of. Patient/guardian denies using alcohol, street drugs. Vital Signs: 22:23 BP 124 / 84; Pulse 69; Resp 16 S; Temp 98.6(TE); Pulse Ox 100% on R/A; Weight 77.11 kg lg3 (R); Height 5 ft. 3 in. (R); 23:30 BP 113 / 79; Pulse 60; Resp 18; Temp 98; Pulse Ox 100% on R/A; Pain 4/10; pf1 22:23 Body Mass Index 30.11 (77.11 kg, 160.02 cm) lg3 23:30 Pain Scale: Adult pf1 MDM: 22:22 Patient medically screened. cp 12/06 22:36 Order name: XRAY Foot RIGHT 3 View cp 12/06 23:16 Order name: Crutches; Complete Time: 23:43 cp 12/06 23:16 Order name: Splint - Posterior Leg; Complete Time: 23:43 cp Administered Medications: 22:43 Drug: Ibuprofen PO 800 mg PO once Route: PO; lg3 23:30 Follow up: Response: No adverse reaction; Marked relief of symptoms; Pain is decreased pf1 22:43 Drug: Hydrocodone-Acetaminophen PO (7.5 mg-325 mg) 1 tabs PO once; RASS on ADMIN: lg3 Combtv4, Very Agttd3, Agttd2, Rstlss1, AlertClm0, Drwsy-1, Lt Sdtn-2, Mod Sdtn-3, Dp Sdtn-4, UnArsble-5 Route: PO; 23:30 Follow up: Response: No adverse reaction; Marked relief of symptoms; Pain is decreased; pf1 RASS: Alert and Calm (0) Disposition Summary: 12/07/23 23:18 Discharge Ordered Notes: Location: Home cp Problem: new cp Symptoms: have improved cp Condition: Stable cp Diagnosis - Nondisplaced fracture of fifth metatarsal bone, right foot cp Followup: cp - With: Hernandez Valderrama MD - When: 5 - 6 days - Reason: Recheck today's complaints Discharge Instructions: - Discharge Summary Sheet cp - Metatarsal Fracture cp Forms: - Medication Reconciliation Form cp - Antibiotic Education cp - Prescription Opioid Use cp - Patient Portal Instructions cp - Leadership Thank You Letter cp Prescriptions: - acetaminophen-codeine 300-30 mg Oral tablet - take 2 tablet ORAL route every 8 hours; 14 tablet; Refills: 0, Product cp Selection Permitted - Ibuprofen 800 mg Oral Tablet - take 1 tablet ORAL route every 8 hours As needed take with food; 30 tablet; cp Refills: 0, Product Selection Permitted Signatures: Dispatcher [employer] EDJono Whittaker PA PA cp Able, Lacie RN RN lg3 Sushila Anderson RN pf1
[2023-12-08 00:25] VITALS: BP 113/79; TEMP 98; O2SAT 100
--- NOTE | 2023-12-08 12:46 | RAD REPORT ---
EXAM DESCRIPTION: XR FOOT 3 OR MORE VIEWS RIGHT CLINICAL HISTORY: PAIN COMPARISON: None. TECHNIQUE: XR FOOT 3 OR MORE VIEWS RIGHT 12/07/2023 10:36 PM CDT FINDINGS: There is a transverse nondisplaced fracture at the base of the fifth metatarsal. Joint spa roma are preserved. There is mild forefoot and midfoot soft tissue swelling. IMPRESSION: Base of fifth metatarsal fracture. Electronically signed by: Nguyễn Licea MD 12/07/2023 11:04 PM CDT Due to temporary technical issues with the PACS/Fluency reporting system, reports are being signed by the in house radiologists without review as a courtesy to insure prompt reporting. The interpreting radiologist is fully responsible for the content of the report
== END 2023-12-07 23:59 | disposition home or self-care (01) ==
LOC: ER 22:17
PROC: 2W3SX1Z Immobilization of Right Foot using Splint (ICD-10-PCS; principal; 2023-12-07)
DX: S92.354A Nondisplaced fracture of fifth metatarsal bone, right foot, initial encounter for closed fracture (principal); W06.XXXA Fall from bed, initial encounter; J45.909 Unspecified asthma, uncomplicated

== ENCOUNTER 2024-04-11 13:24 | Emergency (ER) | payer OTHER ==
[2024-04-11] MEDS ORDERED: BENZONATATE 100 MG CAP PO ONE (14:10)
[2024-04-11 14:42] LABS: SARS-CoV-2 Antigen CONTROL BLUE LINE VIS/BG OK; SARS-CoV-2 Antigen Rapid Res Negative (Negative)
--- NOTE | 2024-04-11 14:50 | ER ---
Nurse's Notes [facility] Name: Yasmin Walker Age: 28 yrs Sex: Female : 1995 Arrival Date: 04/11/2024 Time: 13:24 Bed 12 Private MD: Diagnosis: Acute pharyngitis, unspecified;Nasal congestion;Cough Presentation: 04/11 13:38 Chief complaint: Patient states: sore throat x3 days, cough and congestion x1 day, tm6 diarrhea. Has not been eating much because it is hard to swallow. Coronavirus screen: Vaccine status: Patient reports being unvaccinated. Ebola Screen: Patient negative for fever greater than or equal to 101.5 degrees Fahrenheit, and additional compatible Ebola Virus Disease symptoms Patient denies exposure to infectious person. Patient denies travel to an Ebola-affected area in the 21 days before illness onset. No symptoms or risks identified at this time. Initial Sepsis Screen: Does the patient meet any 2 criteria? No. Patient's initial sepsis screen is negative. Does the patient have a suspected source of infection? No. Patient's initial sepsis screen is negative. Risk Assessment: Do you want to hurt yourself or someone else? Patient reports no desire to harm self or others. Onset of symptoms was April 08, 2024. 13:38 Method Of Arrival: Ambulatory tm6 13:38 Acuity: RICO 4 tm6 Triage Assessment: 13:40 General: Appears in no apparent distress. Behavior is calm, cooperative. Pain: tm6 Complains of pain in neck Pain does not radiate. Pain currently is 8 out of 10 on a pain scale. Pain began 2-3 days ago. EENT: Reports pain in throat when swallowing Pain is 8 out of 10 on a pain scale. since three days ago. Neuro: Level of Consciousness is awake, alert, obeys commands, Oriented to person, place, time, situation. Cardiovascular: Patient's skin is warm and dry. Respiratory: Airway is patent Respiratory effort is even, unlabored, Respiratory pattern is regular, symmetrical, Breath sounds are clear. GI: No signs and/or symptoms were reported involving the gastrointestinal system. Abdomen is flat, non-distended. : No signs and/or symptoms were reported regarding the genitourinary system. Derm: No signs and/or symptoms reported regarding the dermatologic system. Musculoskeletal: No signs and/or symptoms reported regarding the musculoskeletal system. 13:40 Respiratory: Reports cough that is non-productive. 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 - Infectious Disease History:: Denies. - Social history:: Smoking status: Reported history of juuling and/or vaping. Patient uses alcohol, occasionally. Screenin:12 [facility] ED Fall Risk Assessment (Adult) History of falling in the last 3 months, ll1 including since admission No falls in past 3 months (0 pts) Confusion or Disorientation No (0 pts) Intoxicated or Sedated No (0 pts) Impaired Gait No (0 pts) Mobility Assist Device Used No (0 pt) Altered Elimination No (0 pt) Score/Fall Risk Level 0 - 2 = Low Risk Maintained a safe environment, Hourly rounding (assess needs \T\ fall precautionary measures) done. Abuse screen: Denies threats or abuse. Nutritional screening: No deficits noted. Tuberculosis screening: No symptoms or risk factors identified. Assessment: 14:12 Reassessment: No changes from previously documented assessment. Patient and/or family ll1 updated on plan of care and expected duration. Pain level reassessed. Patient is alert, oriented x 3, equal unlabored respirations, skin warm/dry/pink. Vital Signs: 13:38 BP 126 / 89; Pulse 79; Resp 19; Temp 98.5(O); Pulse Ox 100% on R/A; Weight 81.65 kg; tm6 Height 5 ft. 3 in. ; Pain 8/10; 14:57 BP 137 / 75; Pulse 73; Resp 20; Temp 98.5; Pulse Ox 100% on R/A; Pain 0/10; tm6 13:38 Body Mass Index 31.89 (81.65 kg, 160.02 cm) tm6 13:38 Pain Scale: Adult tm6 14:57 Pain Scale: Adult tm6 ED Course: 13:26 Patient arrived in ED. ra3 13:26 Jono Van PA is PHCP. cp 13:26 Yousuf Miller MD is Attending Physician. cp 13:40 Triage completed. tm6 13:40 Arm band placed on left wrist. tm6 13:59 Influenza Screen (a \T\ B) Sent. bc6 13:59 Strep Sent. bc6 13:59 SARS RAPID Sent. bc6 13:59 COVID swab sent to lab. Flu and/or RSV swab sent to lab. Strep swab sent to lab. bc6 14:06 Patient placed in an exam room, on a stretcher. ll1 14:10 Warm blanket given. ll1 14:10 Patient has correct armband on for positive identification. Bed in low position. Call tm6 light in reach. Side rails up X 1. 14:57 Provided Education on: use of prescription medication. tm6 14:57 No provider procedures requiring assistance completed. Patient did not have IV access tm6 during this emergency room visit. Administered Medications: 14:12 Drug: Tessalon Perle PO 200 mg PO once Route: PO; ll1 14:58 Follow up: Response: No adverse reaction tm6 Medication: 14:13 VIS not applicable for this client. ll1 Outcome: 14:50 Discharge ordered by MD. cp 14:57 Discharged to home ambulatory, tm6 14:57 Condition: stable 14:57 Discharge instructions given to patient, Instructed on discharge instructions, follow up and referral plans. medication usage, Demonstrated understanding of instructions, follow-up care, medications, Prescriptions given X 1, 14:58 Patient left the ED. 6 Signatures: Jono Van PA PA cp Lewis, Lynsay, RN RN ll1 Radha Knutson 6 Cruz Keene RN RN 6 Fior Tapia ra3
--- NOTE | 2024-04-11 14:50 | EDPHYS ---
Physician Documentation [facility] Name: Yasmin Walker Age: 28 yrs Sex: Female : 1995 Arrival Date: 04/11/2024 Time: 13:24 Bed 12 Private MD: ED Physician Yousuf Miller HPI: 04/11 13:50 This 28 yrs old Female presents to ER via Ambulatory with complaints of cp Congestion, Sore Throat. 13:50 The patient or guardian reports sore throat times 3 days. cp 13:50 cough and congestion started yesterday. cp 13:50 Associated signs and symptoms: Pertinent positives: diarrhea, rhinorrhea, Pertinent cp negatives: fever, vomiting. 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 - Infectious Disease History:: Denies. - Social history:: Smoking status: Reported history of juuling and/or vaping. Patient uses alcohol, occasionally. ROS: 13:55 Constitutional: Negative for chills, fever, poor PO intake, cp 13:55 Eyes: Negative for injury, pain, redness, and discharge, cp 13:55 ENT: Positive for sore throat, Negative for drainage from ear(s), ear pain, difficulty swallowing, difficulty handling secretions, 13:55 Cardiovascular: Negative for chest pain, 13:55 Respiratory: Positive for cough, Negative for shortness of breath, wheezing, 13:55 Abdomen/GI: Positive for diarrhea, Negative for abdominal pain, vomiting, 13:55 Skin: Negative for rash, 13:55 Neuro: Negative for altered mental status, dizziness, weakness, 13:55 All other systems are negative, Exam: 14:00 Constitutional: The patient appears in no acute distress, alert, awake, non-toxic, well cp developed, well nourished, 14:00 Head/Face: Normocephalic, atraumatic. cp 14:00 Eyes: Periorbital structures: appear normal, Conjunctiva: normal, no exudate, no injection, Sclera: no appreciated abnormality, Lids and lashes: appear normal, bilaterally, 14:00 ENT: External ear(s): are unremarkable, Ear canal(s): are normal, clear, TM's: dullness, bilaterally, Nose: nasal drainage, that is minimal, Mouth: Lips: moist, Oral mucosa: moist, Posterior pharynx: Airway: no evidence of obstruction, patent, Tonsils: no enlargement, no exudate, swelling, is not appreciated, erythema, that is mild, exudate, is not appreciated, 14:00 Neck: ROM/movement: is normal, is supple, no meningismus, no nuchal rigidity, 14:00 Chest/axilla: Inspection: normal, 14:00 Cardiovascular: Rate: normal, Rhythm: regular, 14:00 Respiratory: the patient does not display signs of respiratory distress, Respirations: normal, no use of accessory muscles, no retractions, labored breathing, is not present, Breath sounds: are clear throughout, no decreased breath sounds, no stridor, no wheezing, 14:00 Abdomen/GI: Exam negative for discomfort, distension, guarding, Inspection: abdomen appears normal, Vital Signs: 13:38 BP 126 / 89; Pulse 79; Resp 19; Temp 98.5(O); Pulse Ox 100% on R/A; Weight 81.65 kg; tm6 Height 5 ft. 3 in. ; Pain 8/10; 14:57 BP 137 / 75; Pulse 73; Resp 20; Temp 98.5; Pulse Ox 100% on R/A; Pain 0/10; tm6 13:38 Body Mass Index 31.89 (81.65 kg, 160.02 cm) tm6 13:38 Pain Scale: Adult tm6 14:57 Pain Scale: Adult tm6 MDM: 14:00 Differential diagnosis: bronchitis, flu, URI. 14:02 Patient medically screened. 14:50 Data reviewed: vital signs, nurses notes, lab test result(s), and as a result, I will discharge patient. 14:50 I considered the following discharge prescriptions or medication management in the emergency department Medications were administered in the Emergency Department. See MAR. 14:50 Care significantly affected by the following chronic conditions: asthma. Counseling: I had a detailed discussion with the patient and/or guardian regarding the historical points, exam findings, and any diagnostic results supporting the discharge/admit diagnosis, lab results, to return to the emergency department if symptoms worsen or persist or if there are any questions or concerns that arise at home. 04/11 13:47 Order name: SARS RAPID cp 04/11 13:47 Order name: Strep cp 04/11 13:47 Order name: Influenza Screen (a \T\ B) cp 04/11 14:24 Order name: Throat Culture EDMS Administered Medications: 14:12 Drug: Tessalon Perle PO 200 mg PO once Route: PO; ll1 14:58 Follow up: Response: No adverse reaction tm6 Disposition: 16:22 Co-signature as Attending Physician, Yousuf Miller MD I reviewed the patient's care rn provided by the Advanced Practice Provider and agree with the diagnosis and treatment plan. Disposition Summary: 04/11/24 14:50 Discharge Ordered Notes: Location: Home cp Problem: new cp Symptoms: have improved cp Condition: Stable cp Diagnosis - Acute pharyngitis, unspecified cp - Nasal congestion cp - Cough cp Followup: cp - With: Private Physician - When: 2 - 3 days - Reason: Worsening of condition Discharge Instructions: - Discharge Summary Sheet cp - Pharyngitis cp - Sore Throat cp - Cough, Adult cp Forms: - Medication Reconciliation Form cp - Antibiotic Education cp - Prescription Opioid Use cp - Patient Portal Instructions cp - Leadership Thank You Letter cp Prescriptions: - Bromfed DM 2-30-10 mg/5 mL Oral syrup - administer 10 milliliter ORAL route every 6-8 hours as needed for sinus cp symptoms, cough and congestion; 240 milliliter; Refills: 0, Product Selection Permitted Signatures: Dispatcher [employer] EDMS Yousuf Miller MD MD rn Page, Corey, PA PA cp Madai Rdz RN RN ll1 Cruz Keene RN RN tm6
[2024-04-11 15:13] VITALS: TEMP 98.5; O2SAT 100
[2024-04-11 15:16] VITALS: BP 137/75
== END 2024-04-11 14:58 | disposition home or self-care (01) ==
LOC: ER 13:24
DX: J02.9 Acute pharyngitis, unspecified (principal); R09.81 Nasal congestion; R05.9 Cough, unspecified; Z11.52 Encounter for screening for COVID-19; Z28.310 Unvaccinated for COVID-19
CPT/HCPCS: 36415; 87070; 87081; 87804; 87811; 99284